=== PATIENT | female | born 1985 | race Caucasian/White ===

== ENCOUNTER → 2016-12-14 | Outpatient (CLI) | payer BC ==
[~2016-12-14] MED LIST: HYDR-4246 PO; IBUP-1547 PO; IOHEXOL 300 MG/ML 100ml INJECTION ONE; NORMAL SALINE 100 ML ONE; SALINE FLUSH 10ml SYRINGE ONE
--- NOTE | 2016-12-15 10:33 | DI ---
Indication: ITS.REASON: N28.9 PROCEDURE: CT ABD/PELVIS W/WO CONTRAST: Encounter: Initial Comparison: MRI abdomen dated November 23, 2016 Comparison: None Technique: Axial CT images were performed through the abdomen and pelvis after the administration of intravenous contrast. Coronal and sagittal two-dimensional reformats. Delayed postcontrast images were also performed through the abdomen and pelvis. Automated Exposure Control and Iterative Reconstruction dose reducing techniques were utilized. Contrast: Omnipaque 300 89 mL Findings: Calcified granuloma in the right lower lobe. The lung bases are otherwise clear. Noncontrast images show no evidence of renal or ureteral stone disease. Postcontrast images show multiple low-attenuation foci in the liver which were shown to represent benign hemangiomas on prior study. 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 The enhancing superior pole left renal mass seen on MRI is confirmed on today's study measuring 2.8 cm in maximal diameter on coronal image #30. No additional enhancing renal masses identified. No adenopathy identified. The spleen, pancreas and adrenal glands appear normal. Delayed postcontrast images show no new findings. There is symmetric excretion of contrast by both renal collecting systems. The ureters appear normal in course and caliber. The bladder appears normal. 3.8 cm probable cyst in the left ovary. Uterus is unremarkable. No free fluid. No evidence of a bowel obstruction. Bone windows show no obvious lytic or blastic lesions. Impression: 1. Enhancing 2.7 cm superior pole left renal mass which remains a renal cell carcinoma until proven otherwise. 2. Multiple hepatic lesions, three of which were shown to represent benign hemangiomas on the comparison MRI. 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 .
--- NOTE | 2016-12-15 10:34 | DI ---
Indication: ITS.REASON: N28.9 left renal mass on prior imaging studies. PROCEDURE: US RENAL: Encounter: Initial Comparison: MRI abdomen dated November 23, [address] abdomen/pelvis dated December 14, 2016 Technique: Grayscale and color Doppler sonographic imaging of both kidneys and bladder was performed. FINDINGS: Both kidneys are present with normal cortical thickness and echogenicity. The left superior pole renal mass seen on MRI and CT is not well visualized on this exam. It is faintly visible as a slightly more hypoechoic exophytic region at the superior aspect of the left kidney measuring approximately 2.5 cm in size. No masses seen on the right. No hydronephrosis. The right kidney measures 11.2 cm in length, and the left kidney measures 11.8 cm in length. Bladder appears normal with bilateral ureteral jets. Prevoid bladder volume of 427.3 mL. Postvoid residual volume of 17.5 mL. IMPRESSION: The superior pole left renal mass is better seen on CT and MRI and remains concerning for renal cell carcinoma. .
== END ==
LOC: IMA 06:33
PROVIDERS: ATTEND Urology
DX: N28.9 Disorder of kidney and ureter, unspecified (principal); K76.9 Liver disease, unspecified
CPT/HCPCS: 74178; 76770; J7050; Q9967

== ENCOUNTER 2018-02-28 06:00 | Inpatient (IN) ==
[2018-02-28] MEDS ORDERED: METHYLERGONOVINE 0.2 MG/ML INJECTION IM PRN (06:04)
[2018-02-28] MEDS ORDERED: LR 1,000 ML IV PRN (06:04)
[2018-02-28] MEDS ORDERED: CARBOPROST 250 MCG/ML INJECTION IM PRN (06:04)
[2018-02-28] MEDS ORDERED: D5LR 1,000 ML IV PRN ×2 (06:04→06:09)
[2018-02-28] MEDS ORDERED: LIDOCAINE 1% (10mg/ml) 2mL INJ PF SDV ID PRN (06:04)
[2018-02-28] MEDS ORDERED: ACETAMINOPHEN 500 MG TABLET PO PRN (06:04)
[2018-02-28] MEDS ORDERED: CALCIUM CARBONATE Chewable 500mg TABLET PO PRN (06:04)
[2018-02-28] MEDS ORDERED: MAG-AL + SIM ORAL LIQUID 30ml PO PRN (06:04)
--- OUTSIDE RECORDS SUMMARY | 2018-02-28 06:05 | External Medical Summary | Continuity of Care Document ---
:1985 Author Organization [facility] Address [address] [place], [place] [id number] Phone Care Team Providers Name Role Phone Kelsey Garcia PA-C Unavailable Unavailable Allergies, Adverse Reactions, Alerts Substance Reaction Severity Status FLUOXETINE HCL Suicidal Ideation Unknown Active Medications Medication Instructions Dosage Effective Dates Status Comments (start - stop) butalbital-acetam take 1 - 2 tablet Not Available - Active MAY BE CALLED inophen-caffeine by oral route TO THE PHARM 50 mg-325 mg-40 every 6 hours as or printed Rx mg tablet needed not to taken to exceed 6 tablets pharm. per 24hrs buspirone 5 mg take 1 tablet by - Active tablet oral route 2 times every day PRN lidocaine 2 % apply a tiny - Active mucosal jelly amount by Topical route 2 times every day as needed 28 mg take 1 tablet by Not Available - Active iron-800 mcg oral route every tablet day Problems Condition Effective Dates (start - stop) Clinical Status Supervision of other high risk - pregnancies, third trimester Polyhydramnios, third trimester, not - applicable or unsp Endo, nutritional and metab diseases - comp preg, third tri Personal history of comp of preg, - chldbrth and the puerp Supervision of other high risk - pregnancies, first trimester Encntr screen for infections w sexl - mode of transmiss Encounter for screening for oth - infec/parastc diseases Encounter for screening of - mother 11 weeks gestation of - Polyhydramnios, third trimester, not - applicable or unsp Other malformation of placenta, third - trimester 34 weeks gestation of - Malignant neoplasm of unsp kidney, except renal pelvis Hepatomegaly, not elsewhere classified Pap Smear Screening, Cervix - Encounter for surveillance of contraceptive pills Acute posthemorrhagic anemia Tubal preg w/out intrauterine preg Encntr for f/u exam aft trtmt for cond oth than malig neoplm Acute posthemorrhagic anemia Tubal preg w/out intrauterine preg Anemia, unspecified Tubal preg w/out intrauterine preg Anemia, unspecified - Tubal preg w/out intrauterine preg - Tubal preg w/out intrauterine preg Tubal preg w/out intrauterine preg - Tubal preg w/out intrauterine preg Supervision of other high risk - pregnancies, first trimester Less than 8 weeks gestation of - Personal history of comp of preg, - chldbrth and the puerp Supervision of other high risk - pregnancies, second trimester Other malformation of placenta, second - trimester 27 weeks gestation of - Supervision of other high risk - pregnancies, second trimester 23 weeks gestation of - Supervision of other high risk - pregnancies, third trimester Polyhydramnios, third trimester, not - applicable or unsp Other malformation of placenta, third - trimester 34 weeks gestation of - Supervision of other high risk - pregnancies, third trimester Matern care for oth or susp poor fetl - grth, third tri, unsp Other malformation of placenta, third - trimester 30 weeks gestation of - Supervision of other high risk - pregnancies, third trimester Polyhydramnios, third trimester, not - applicable or unsp Other malformation of placenta, third - trimester 33 weeks gestation of - Matern care for oth or susp poor fetl - grth, 2nd tri, unsp 15 weeks gestation of - Matern care for oth or susp poor fetl - grth, 2nd tri, unsp 19 weeks gestation of - Polyhydramnios, third trimester, not - applicable or unsp 33 weeks gestation of - Polyhydramnios, third trimester, not - applicable or unsp Other malformation of placenta, third - trimester 31 weeks gestation of - Polyhydramnios, third trimester, not - applicable or unsp Endo, nutritional and metab diseases - comp preg, third tri 30 weeks gestation of - Polyhydramnios, third trimester, not - applicable or unsp 32 weeks gestation of - Polyhydramnios, third trimester, not - applicable or unsp Other malformation of placenta, third - trimester Endo, nutritional and metab diseases - comp preg, third tri 32 weeks gestation of - Other malformation of placenta, second - trimester Endo, nutritional and metab diseases - comp preg, second tri 19 weeks gestation of - Other malformation of placenta, second - trimester Endo, nutritional and metab diseases - comp preg, second tri 23 weeks gestation of - Less than 8 weeks gestation of - Personal history of comp of preg, - chldbrth and the puerp Depression Active Procedures Procedure Date OB Visit No Charge Results Test Name Date and Time Measure Units Reference Range Abnormal Flag Comments Unknown Advance Directives Directive Yes / No Effective Date File Name Unknown Encounters Encounter Practice Location Reason(s) Diagnoses Date Provider Care Team Description For Visit Members [facility] Polyhydramnios, January- Wynn Referring In Womens third trimester, 3-201 Roxie. Provider: Health PA, not applicable or 8 [address] unspOther Medical [place], 200 1522, malformation of Center [facility], placenta, third [place], [id number] weeks 120, , [place], [id number], [place], [address]. [place], tel: tel:[phone] , [place]. tel: [phone] Jason [place] Supervision of May-0 Wynn Referring In Womens Ultrasound other high risk 3-201 Roxie. Provider: Health PA, pregnancies, 8 700 Rajwinder PO Box third Medical [place], [address] 15[address], trimesterPolyhydr [facility], amnios, third [place], trimester, not 120, , [place], [id number], applicable or [place], [address]. [place]Other [place], tel: tel:+[phone] malformation of [phone] placenta, third , [place]. [id number] weeks tel: gestation of [phone] [facility] Apr-2 Wynn In Womens 7-201 Roxie. Health PA, 8 700 PO [address] Medical [address], [facility], , [place], 120, [id number], [place], tel:+ [phone] , [place]. tel: [phone] Jason [place] Polyhydramnios, Apr-2 Wynn Referring In Womens third trimester, 6- Roxie. Provider: Health PA, not applicable or 8 700 Rajwinder PO Box unsp33 weeks Medical [place], 200 1522, gestation of [facility], [place], 120, , [place], [id number], [place], [address]. [place], tel: tel:[phone] , [place]. tel: [phone] Jason [place] Supervision of Apr-2 Wynn Referring In Womens Ultrasound other high risk 6- Roxie. Provider: Health PA, pregnancies, 8 700 Rajwinder PO Box third Medical [place], 200 1522, trimesterPolyhydr [facility] , [employer] [place], amnios, third [place], trimester, not 120, , [place], [id number], applicable or [place], [address]. [place]spOther [place], tel: tel: malformation of [phone] placenta, third , [place]. [id number] weeks tel: gestation of [phone] [facility] Polyhydramnios, Apr- Wynn Referring In Womens third trimester, Roxie. Provider: Health PA, not applicable or 8 700 Rajwinder PO Box unsp32 weeks Medical [place], 200 1522, gestation of [facility], [employer], [place], 120, , [place], , [place], [address]. [place], tel: tel: [phone] , [place]. tel: [phone] [facility] Polyhydramnios, Apr- Wynn Referring In Womens Ultrasound third trimester, Roxie. Provider: Health PA, not applicable or 8 700 Rajwinder PO Box unspOther Medical [place], 200 1522, malformation of [facility], [employer] [place], placenta, third [place], trimesterEndo, 120, , [place], [id number], nutritional and [place], [address]. [place] metab diseases [place], tel: tel:[phone] comp preg, third [phone] [id number] tri32 weeks , [place]. gestation of tel: [phone] [facility] Supervision of Sobbing Referring In Womens other high risk - Flash. Provider: Health PA, pregnancies, 8 700 Rajwinder PO Box third Medical [place], 200 1522, trimesterPolyhydr [facility], [employer] [place], amnios, third Singh Sheth, trimester, not Suite , [place], [id number], applicable or 120, [address]. [place] carmenpEnJacobo roche, tel: tel:[phone] nutritional and [place], [phone] metab diseases [address], comp preg, third [place]. triPersonal tel: history of comp [phone] of preg, chldbrth and the puerp [facility] Polyhydramnios, Apr-1 Wynn Referring In Womens Ultrasound third trimester, - Roxie. Provider: Health PA, not applicable or 8 700 Rajwinder PO Box unspOther Medical [place], 200 1522, malformation of Center [facility], placenta, third [place], [id number] weeks 120, , [place], [id number], gestation [place], [address]. [place], tel: tel: [phone] , [place]. tel: [phone] [facility] Polyhydramnios, Apr-0 Wynn Referring In Womens third trimester, - Roxie. Provider: Health PA, not applicable or 8 700 Rajwinder PO Box unspEndo, Medical [place], 200 1522, nutritional and [facility], metab diseases [place], comp preg, third 120, , [place], [id number], tri30 weeks [place], [address]. [place] gestation of [place], tel: tel:[phone] , [place]. tel: [phone] [facility] Supervision of Dec-0 Wynn Referring In Womens Ultrasound other high risk - Roxie. Provider: Health PA, pregnancies, 8 700 Rajwinder PO Box third Medical [place], 200 1522, trimesterMatern Center [facility], care for oth or [place], susp poor fetl 120, , [place], [id number], grth, third tri, [place], [address]. [place]spOther [place], tel: tel:[phone] malformation of [phone] placenta, third , [place]. [id number] weeks tel: gestation of [phone] [facility] Supervision of Nov- Wynn Referring In Womens other high risk - Roxie. Provider: Health JACK, pregnancies, 8 700 Rajwinder PO Box second [facility] [place], 200 1522, trimesterOther [facility], malformation of [place], placenta, second 120, , [place], [id number], weeks [place], [address]. [place] gestation of [place], tel: tel:[phone] , [place]. tel: [phone] Jason [place] Supervision of Oct- Wynn Referring In Womens other high risk 5-201 Roxie. Provider: Health JACK, pregnancies, 8 700 Rajwinder PO Box second Medical [place], 200 1522, [id number] weeks Center [facility], gestation of [place], 120, , [place], [id number], [place], [address]. [place], tel: tel: [phone] , [place]. tel: [phone] Jason [place] Other Wynn Referring In Womens Ultrasound malformation of 5- Roxie. Provider: Health JACK, placenta, second 8 700 Rajwinder PO Box trimesterEndo, Medical [place], 200 1522, nutritional and [facility], metab diseases [place], comp preg, second 120, , [place], [id number], tri23 weeks [place], [address]. [place] gestation of [place], tel: tel:[phone] , [place]. tel: [phone] Jason [place] Sep- Wynn In Womens 1-201 Roxie. Health JACK, 8 700 PO Box Medical [address], [facility], [place], 120, [id number], [place], tel: [phone] , [place]. tel: [phone] Jason [place] Other Wynn Referring In Womens malformation of 8-201 Roxie. Provider: Health JACK, placenta, second 8 700 Rajwinder PO Box trimesterEndo, Medical [place], 200 1522, nutritional and [facility], metab diseases [place], comp preg, second 120, , [place], [id number], tri19 weeks [place], [address]. [place] gestation of [place], tel:[phone] tel:+ [phone] , [place]. tel: [phone] Jason [place] Matern care for Wynn Referring In Womens Ultrasound oth or susp poor - Roxie. Provider: Bon SANTIAGO, [facility], 2nd 8 700 Rajwinder PO Box tri, unsp19 weeks Medical [place], 200 1522, gestation of [facility], [place], 120, , [place], [id number], [place], [address]. [place], tel: tel:[phone] , [place]. tel: [phone] Jason [place] Matern care for Wynn Referring In Womens oth or susp poor - Roxie. Provider: Bon SANTIAGO, [facility], 2nd 7 700 Rajwinder PO Box tri, unsp15 weeks Medical [place], 200 1522, gestation of [facility], [place], 120, , [place], [id number], [place], [address]. [place], tel: tel: [phone] , [place]. tel: [phone] Jason [place] Supervision of Wynn Referring In Womens other high risk - Roxie. Provider: Bon SANTIAGO, pregnancies, 7 700 Rajwinder PO Box [facility], 200 1522, trimesterEncntr Center [facility], screen for [place], infections w sexl 120, , [place], [id number], mode of [place], [address]. [place] transmissEncounte [place], tel: tel:[phone] r for screening [phone] for ot , [place]. infec/parastc tel: diseasesEncounter [phone] for screening of [id number] weeks gestation of [facility] Less than 8 weeks Jun- Wynn Referring In Womens gestation of - Roxie. Provider: Bon SANTIAGO, pregnancyPersonal 7 700 Rajwinder PO Box history of comp Medical [place], 200 1522, of preg, chldbrth [facility], and the puerp [place], 120, , [place], , [place], [address]. [place], tel: tel: [phone] , [place]. tel: [phone] [facility] Supervision of Wynn Referring In Womens other high risk 3- Roxie. Provider: Health PA, pregnancies, 7 700 Rajwinder PO Box first Medical [place], 200 1522, trimesterLess [facility], than 8 weeks [place], gestation of 120, , [place], , pregnancyPersonal [place], [address]. [place] history of comp [place], tel: tel: of preg, chldbrth [phone] and the puerp , [place]. tel: [phone] [facility] Malignant Roger- Wynn Referring In Womens neoplasm of unsp 6 Roxie. Provider: Health PA, kidney, except 7 700 Rajwinder PO Box renal Medical [place], 200 1522, pelvisHepatomegal [facility], y, not elsewhere [place], classifiedPap 120, , [place], , Smear Screening, [place], [address]. [place] CervixEncounter [place], tel: tel: for surveillance [phone] of contraceptive , [place]. pills tel: [phone] [facility] Anemia, Mar-0 Wynn Referring In Womens unspecifiedTubal Roxie. Provider: Health PA, preg w/out 7 700 Rajwinder PO Box intrauterine preg Medical [place], 200 1522, [facility], [place], 120, , [place], , [place], [address]. [place], tel: tel: [phone] , [place]. tel: [phone] [facility] Anemia, Mar-0 Wynn In Womens unspecifiedTubal 7-201 Roxie. Health JACK, preg w/out 7 700 PO Box intrauterine preg Medical [address], [address], [facility] [place], 120, [id number], [place], [place], tel:+ [phone] , [place]. tel: [phone] [facility] Tubal preg w/out Feb-2 Wynn Referring In Womens intrauterine 4-201 Roxie. Provider: Health JACK, pregTubal preg 7 700 Rajwinder PO Box w/out Medical [place], 200 1522, intrauterine preg Center [facility] Dr Rajesh, [place], 120, , [place], , [place], [address]. [place], tel: tel: [phone] , [place]. tel: [phone] Jason [place] Tubal preg w/out Feb-1 Wynn In Womens intrauterine preg 9-201 Roxie. Bon SANTIAGO, 7 700 [address] Medical [address], [address], [place], 120, , [place], [place], tel:[phone] , [place]. tel: [phone] [facility] Acute Feb-1 Wynn Referring In Womens posthemorrhagic 7-201 Roxie. Provider: Bon SANTIAGO, anemiaTubal preg 7 700 Rajwinder PO Box w/out Medical [place], 200 1522, intrauterine [facility], pregEncntr for [place], f/u exam aft 120, , [place], , trtmt for cond [place], [address]. [facility] [place], tel: tel: [phone] , [place]. tel: [phone] [facility] Acute Feb-1 Wynn Referring In Womens posthemorrhagic 0-201 Roxie. Provider: Bon SANTIAGO, anemiaTubal preg 7 700 Roxie W[place] PO Box w/out Medical [place], 700 1522, intrauterine preg Center [address], [facility] Dr [place], 120, [place], [id number], Jacobo [facility], [place], tel: [phone]. , . tel: tel: [phone] Jason [place] Sep- Esperanza In Womens 0-201 Yue. [facility], 5 700 PO [facility] [address], [place] [address] Rajesh, [facility] [place], 120, [id number], [facility], tel: [phone] , . tel: [phone] Family History Family Member Diagnosis Age At Onset No family history of Thyroid Disorder No family history of Ovarian Cancer No family history of Pulmonary Embolism No family history of Stroke No family history of Uterine Cancer No family history of Colon Cancer No family history of Hypertension No family history of Diabetes No family history of Cardiovascular Disease No family history of Venous Thrombosis No family history of Breast Cancer Immunizations Vaccine Date Status Comments Tdap completed Source: New Immunization Record Influenza, injectable, completed Source: Other Provider quadrivalent, preservative free, 3 yrs or older Payers Payer name Insurance type Covered alliance party ID Authorization(s) [facility] [id number] [facility] [id number] Social History Type Description Quantity Date Captured Alcohol Use Details No Caffeine Use Details Unknown Tobacco Use Status Unknown Smoking Status Never smoker Vital Signs Date / Height Weight BMI Pulse Blood Temperature Respiratory Body Head BMI Time: Rate Pressure Rate Surface Circumference percentile Area 169.10 29.0 115/2018 lbs 2 mm[Hg] 3:42 kg/m PM eter (2) Chief Complaint And Reason For Visit Unknown Chief Complaint And Reason For Visit Reason For Referral Reason For Referral Unknown Plan Of Care Date Type Action Status Appointment ChynaShantelle de la o BOOKED Appointment ChynaShantelle BOOKED Appointment ChynaShantelle de la o BOOKED Appointment Chyna, Shantelle BOOKED Appointment ChynaShantelle BOOKED Appointment ChynaShantelle BOOKED Appointment ChynaShantelle de la o BOOKED Appointment Shantelle Clemente BOOKED Appointment Shantelle Clemente BOOKED Appointment Shantelle Clemente BOOKED Future Order: Radiology Order Ultrasound OB Follow-up ([id number]) Ordered Future Order: Radiology Order Biophysical Profile without NST Ordered ([id number]) Future Order: Radiology Order Ultrasound OB Follow-up ([id number]) Ordered Future Order: Radiology Order Biophysical Profile without NST Ordered ([id number]) Future Order: Radiology Order Complete OB Ultrasound > 14 Ordered Weeks ([id number]) Future Order: Radiology Order Biophysical Profile without NST Ordered ([id number]) Future Order: Radiology Order Biophysical Profile without NST Ordered ([id number]) Future Order: Radiology Order Ultrasound OB Follow-up ([id number]) Ordered Date Type Problem Goal Intervention Status Start Date Unknown. History Of Present Illness Encounter Date Complaint History Of Present Illness This patient has no known history of present illness Functional Status Encounter Date Functional Assessment Cognitive Assessment Unknown Medications Administered Medication Instructions Dosage Effective Dates (start - stop) Status Comments Drug Treatment Unknown Instructions Date Instruction Additional Information gestational glucose lab screening HIV and other routine tests risk factors identified by history anticipated course of care nutrition and weight gain counseling, special diet toxoplasmosis precautions (cats / raw meat) sexual activity exercise indications for ultrasound influenza vaccine environmental / work hazards travel use of any medications (including supplements, vitamins, herbs, OTC drugs) domestic violence seat belt use childbirth classes / hospital facilities hospital registration genetic testing new ob handbook
--- OUTSIDE RECORDS SUMMARY | 2018-02-28 06:05 | External Medical Summary | Continuity of Care Document ---
:1985 Author Organization [facility] [employer] [facility] Address [address] [place], [place] [id number] Phone Care Team Providers Name Role Phone Kelsey Garcia PA-C Unavailable Unavailable Allergies, Adverse Reactions, Alerts Substance Reaction Severity Status FLUOXETINE HCL Suicidal Ideation Unknown Active Medications Medication Instructions Dosage Effective Status Comments Dates (start - stop) Zofran ODT [address] 1 Tablet by Not Available - Active disintegrating Oral route every tablet [address] tablet on top of tongue until dissolved. butalbital-acetamino take 1 - 2 tablet Not Available - Active MAY BE CALLED phen-caffeine 50 by oral route TO THE PHARM mg-325 mg-40 mg every 6 hours as or printed Rx tablet needed not to taken to exceed 6 tablets pharm. per 24hrs buspirone 5 mg take 1 tablet by - Active tablet oral route 2 times every day PRN lidocaine 2 % apply a tiny - Active mucosal jelly amount by Topical route 2 times every day as needed 28 mg take 1 tablet by Not Available - Active iron-800 mcg tablet oral route every day ranitidine 75 mg take 1 tablet by 75 MG - Active tablet oral route 2 times every day with glass of water Problems Condition Effective Dates (start - stop) Clinical Status Polyhydramnios, third trimester, not - applicable or unsp 33 weeks gestation of - Supervision of other [...] - trimester 33 weeks gestation of - Supervision of other high risk - pregnancies, third trimester Polyhydramnios, third trimester, not - applicable or unsp Other malformation of placenta, 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 Provider: Health JACK, not applicable or 8 [address] unspEncounter For Medical [place], 200 1522, [facility], Screening For [place], Streptococcus B35 120, , [place], , weeks gestation Jacobo [address]. [place], tel: tel:[phone] , [place]. tel: [phone] Jason [place] Supervision of Wynn Referring In Womens Ultrasound other high risk 0-201 Roxie. Provider: Bon SANTIAGO, pregnancies, 8 700 [address] third Medical [place], 200 1522, trimesterPolyhydr [facility], amnios, third [place], trimester, not 120, , [place], , applicable or [place], [address]. [place] unspOther [place], tel: tel:[phone] malformation of [phone] placenta, third , [place]. [email or web address] weeks tel: gestation of [phone] [facility] January-0 Wynn In Womens 7-201 Roxie. Health JACK, 8 700 [address] Medical [address], [facility], [place], 120, [id number], [place], tel: [phone] , [place]. tel: [phone] Jason [place] Polyhydramnios, May-0 Wynn Referring In Womens third trimester, 3-201 Roxie. Provider: Health PA, not applicable or 8 700 Rajwinder PO Box unspOther Medical [place], 200 1522, malformation of [facility], placenta, third [place], weeks 120, , [place], [id number], gestation of [place], [address]. [place], tel: tel:[phone] , [place]. tel: [phone] Jason [place] Supervision of May-0 Wynn Referring In Womens Ultrasound other high risk 3- Roxie. Provider: Health PA, pregnancies, 8 700 [address]winder PO [address] third Medical [place], 200 1522, trimesterPolyhydr [facility], amnios, third [place], trimester, not 120, , [place], [id number], applicable or [place], [address]. [place] unspOther [place], tel: tel:[phone] malformation of [phone] placenta, third , [place]. [email or web address] weeks tel:+10-30 gestation of [phone] [facility] Apr-2 Wynn In Womens 7- Roxie. Health PA, 8 700 [address] Medical [address], [facility], , [place], 120, [id number], [place], tel:+ [phone] , [place]. tel: [phone] Jason [place] Polyhydramnios, Apr-2 Wynn Referring In Womens third trimester, 6- Roxie. Provider: Health PA, not applicable or 8 700 Rajwinder PO Box unsp33 weeks Medical [place], 200 1522, gestation of [facility], [place], 120, , [place], [id number], [place], [address]. [place], tel: tel:[phone] , [place]. tel: [phone] Jason [place] Supervision of Apr-2 Wynn Referring In Womens Ultrasound other high risk 6- Roxie. Provider: Health PA, pregnancies, 8 700 Rajwinder [address] third Medical [place], 200 1522, trimesterPolyhydr [facility], amnios, third [place], trimester, not 120, , [place], [id number], applicable or [place], [address]. [place] unspOther [place], tel: tel: malformation of [phone] placenta, third , [place]. [id number] weeks tel: gestation of [phone] [facility] Polyhydramnios, Apr- Wynn Referring In Womens third trimester, 9 Roxie. Provider: Health PA, not applicable or 8 700 Rajwinder PO Box unsp32 weeks Medical [place], 200 1522, gestation of [facility], [place], 120, , [place], [id number], [place], [address]. [place], tel: tel: [phone] , [place]. tel: [phone] [facility] Polyhydramnios, Apr- Wynn Referring In Womens Ultrasound third trimester, Roxie. Provider: Health PA, not applicable or 8 700 Rajwinder PO [facility] [place], 200 1522, malformation of [facility], placenta, third [place], trimesterEndo, 120, , [place], [id number], nutritional and [place], [address]. [place] metab diseases [place], tel: tel:[phone] comp preg, third [phone] [id number] tri32 weeks , [place]. gestation of tel: [phone] [facility] Supervision of Sobbing Referring In Womens other high risk - Flash. Provider: Health PA, pregnancies, 8 700 Rajwinder PO Box third Medical [place], 200 1522, trimesterPolyhydr [facility], amnios, third Singh Sheth, trimester, not Suite , [place], [id number], applicable or 120, [address]. [place] carmenpEndoJacobo, tel: tel:[phone] nutritional and [place], [id number] [id number] metab diseases [address], comp preg, third [place]. triPersonal tel: history of comp [phone] of preg, chldbrth and the puerp [facility] Polyhydramnios, Apr-1 Wynn Referring In Womens Ultrasound third trimester, 2-201 Roxie. Provider: Health PA, not applicable or 8 700 Rajwinder PO Box unspOther [facility], 200 1522, malformation of [facility], placenta, third [place], [email or web address] weeks 120, , [place], [id number], gestation of [place], [address]. [place], tel: tel: [phone] , [place]. tel: [phone] [facility] Polyhydramnios, Apr-0 Wynn Referring In Womens third trimester, 5- Roxie. Provider: Health PA, not applicable or 8 700 Rajwinder [facility] 200 1522, nutritional and [facility], metab diseases [place], comp preg, third 120, , [place], [id number], tri30 weeks [place], [address]. [place] gestation of [place], tel: tel: [phone] , [place]. tel: [phone] [facility] Supervision of Apr-0 Wynn Referring In Womens Ultrasound other high risk - Roxie. Provider: Health PA, pregnancies, 8 700 Rajwinder PO Box [facility] [place], 200 1522, trimesterMatern [facility], care for oth or [place], susp poor fetl 120, , [place], [id number], grth, third tri, [place], [address]. [place] unspOther [place], tel: tel:[phone] malformation of [phone] placenta, third , [place]. [email or web address] weeks tel:+10-30 gestation of [phone] [facility] Supervision of Mar-1 Wynn Referring In Womens other high risk 5-201 Roxie. Provider: Health PA, pregnancies, 8 700 Rajwinder PO Box second Medical [place], 200 1522, trimesterOther [facility], malformation of [place], placenta, second 120, , [place], [id number], [email or web address] weeks [place], [address]. [place] gestation of [place], tel: tel:[phone] , [place]. tel: [phone] aJson [place] Supervision of Oct- Wynn Referring In Womens other high risk 5- Roxie. Provider: Health PA, pregnancies, 8 700 Rajwinder PO Box second Medical [place], 200 1522, [email or web address] weeks [facility], gestation of [place], 120, , [place], [id number], [place], [address]. [place], tel: tel: [phone] , [place]. tel: [phone] Jason [place] Other Wynn Referring In Womens Ultrasound malformation of 5- Roxie. Provider: Health PA, placenta, second 8 700 Rajwinder PO Box trimesterEndo, Medical [place], 200 1522, nutritional and [facility], metab diseases [place], comp preg, second 120, , [place], [id number], tri23 weeks [place], [address]. [place] gestation of [place], tel: tel:[phone] , [place]. tel: [phone] Jason [place] Sep- Wynn In Womens -201 Roxie. Health PA, 8 700 PO [address] Medical [address], [place] Rajesh, [place], 120, [id number], [place], tel: [phone] , [place]. tel: [phone] Jason [place] Other Wynn Referring In Womens malformation of 8-201 Roxie. Provider: Health PA, placenta, second 8 700 Rajwinder PO Box trimesterEndo, Medical [place], 200 1522, nutritional and [facility], metab diseases [place], comp preg, second 120, , [place], [id number], tri19 weeks [place], [address]. [place] gestation of [place], tel: tel: [phone] , [place]. tel: [phone] [facility] Matern care for Wynn Referring In Womens Ultrasound oth or susp poor 8-201 Roxie. Provider: Health JACK, [facility], 2nd 8 700 Rajwinder PO Box tri, unsp19 weeks [facility] [place], 200 1522, gestation of [facility], [place], 120, , [place], [id number], [place], [address]. [place], tel: tel: [phone] , [place]. tel: [phone] Jason [place] Matern care for Wynn Referring In Womens oth or susp poor - Roxie. Provider: Bon SANTIAGO, [facility], 2nd 7 700 Rajwinder PO Box tri, unsp15 weeks Medical [place], 200 1522, gestation of [facility], [place], 120, , [place], [id number], [place], [address]. [place], tel: tel: [phone] , [place]. tel: [phone] Jason [place] Supervision of Wynn Referring In Womens other high risk - Roxie. Provider: Health JACK, pregnancies, 7 700 Rajwinder PO Box first [facility] [place], 200 1522, trimesterEncntr [facility], screen for [place], infections w sexl 120, , [place], [id number], mode of [place], [address]. [place] transmissEncounte [place], tel: tel: r for screening [phone] for ot , [place]. infec/parastc tel: diseasesEncounter [phone] for screening of [id number] weeks gestation of [facility] Less than 8 weeks Jun- Wynn Referring In Womens gestation of 7-201 Roxie. Provider: Health JACK, pregnancyPersonal 7 700 Rajwinder PO Box history of comp Medical [place], 200 1522, of preg, chldbrth [facility], and the puerp [place], 120, , [place], , [place], [address]. [place], tel: tel: [phone] , [place]. tel: [phone] [facility] Supervision of Wynn Referring In Womens other high risk Roxie. Provider: Health JACK, pregnancies, 7 700 Rajwinder PO Box first Medical [place], 200 1522, trimesterLess [facility], than 8 weeks [place], gestation of 120, , [place], , pregnancyPersonal [place], [address]. [place] history of comp [place], tel: tel: of preg, chldbrth [phone] and the puerp , [place]. 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 Provider: Health JACK, kidney, except 7 700 Rajwinder PO Box renal Medical [place], 200 1522, pelvisHepatomegal [facility], y, not elsewhere [place], classifiedPap 120, , [place], , Smear Screening, [place], [address]. [place] CervixEncounter [place], tel: tel: for surveillance [phone] of contraceptive , [place]. pills tel: [phone] [facility] Anemia, Mar-0 Wynn Referring In Womens unspecifiedTubal Roxie. Provider: Health JACK, preg w/out 7 700 Rajwinder PO Box intrauterine preg Medical [place], 200 1522, [facility], [place], 120, , [place], , [place], [address]. [place], tel: tel: [phone] , [place]. tel: [phone] [facility] Anemia, Mar-0 Wynn In Womens unspecifiedTubal 7-201 Roxie. Health JACK, preg w/out 7 700 PO Box intrauterine preg Medical 15[address], [place] [address] Rajesh, [place], 120, [id number], [place], [place], tel: [phone] , [place]. tel: [phone] [facility] Tubal preg w/out Feb-2 Wynn Referring In Womens intrauterine 4-201 Roxie. Provider: Bon SANTIAGO, pregTubal preg 7 700 Rajwinder PO Box w/out Medical [place], 200 1522, intrauterine preg [facility] Dr Rajesh, [place]W, 120, , [place], , [place], [address]. [place], tel: tel: [phone] , [place]. tel: [phone] Jason [place] Tubal preg w/out Feb-1 Wynn In Womens intrauterine preg 9-201 Roxie. Bon SANTIAGO, 7 700 [address] Medical [address], [address], [place], 120, , [place], [place], tel: [phone] , [place]. tel: [phone] [facility] Acute Feb-1 Wynn Referring In Womens posthemorrhagic 7-201 Roxie. Provider: Bon SANTIAGO, anemiaTubal preg 7 700 Rajwinder PO Box w/out Medical [place], 200 1522, intrauterine [facility], pregEncntr for [place], f/u exam aft 120, , [place], , trtmt for cond Jacob[place], [address]. ot than [place] center [place], tel: tel: [phone] , [place]. tel: [phone] [facility] Acute Feb-1 Wynn Referring In Womens posthemorrhagic 0-201 Roxie. Provider: Bon SANTIAGO, anemiaTubal preg 7 700 Roxie Wynn PO Box w/out Medical K, 700 1522, intrauterine preg [place] [address], [facility] [place], 120, [place] 120, [id number], [place], [place], [place], tel: [phone]. , . tel: tel: [phone] [facility] Sly- Esperanza In Womens 0-201 Yue. [facility], 5 700 PO Box [facility], [place] [address] Rajesh, [facility] [place], 120, [id number], [place], [place], tel: [phone] , [place]. tel: [phone] Family History Family Member Diagnosis Age At [...] older Payers Payer name Insurance type Covered democrat ID Authorization(s) [facility] [id number] [facility] [id number] Social History Type Description Quantity Date Captured Alcohol Use Details No Caffeine Use Details Unknown Tobacco Use Status Unknown Smoking Status Never smoker Vital Signs Date / Height Weight BMI Pulse Blood Temperature Respiratory Body Head BMI Time: Rate Pressure Rate Surface Circumference percentile Area 29 2 10:29 kg/m AM eter (2) 172.10 29.5 110/71 -2018 lbs 4 mm[Hg] 10:47 kg/m AM eter (2) Chief Complaint And Reason For Visit Unknown Chief Complaint And Reason For Visit Reason For Referral Reason For Referral Unknown Plan Of Care Date Type Action Status Shantelle Cho BOOKED Appointment Shantelle Clemente BOOKED Appointment Shantelle Clemente BOOKED Ana Choan BOOKED Appointment Shantelle Clemente BOOKED Appointment Shantelle Clemente BOOKED Appointment Shantelle Clemente BOOKED Future Order: Radiology Order Ultrasound OB Follow-up ([id number]) Ordered Future Order: Radiology Order Biophysical Profile without NST Ordered ([id number]) Future Order: Radiology Order Ultrasound OB Follow-up ([id number]) Ordered Future Order: Radiology Order Biophysical Profile without NST Ordered ([id number]) Future Order: Radiology Order Biophysical Profile without NST Ordered ([id number]) Future Order: Radiology Order Complete OB Ultrasound > 14 Ordered Weeks ([id number]) Future Order: Radiology Order Biophysical Profile without NST Ordered ([id number]) Future Order: Radiology Order Biophysical Profile without NST Ordered ([id number]) Future Order: Radiology Order Ultrasound OB Follow-up ([id number]) Ordered Date Type Problem Goal Intervention Status Start Date Unknown. History Of Present Illness Encounter Date Complaint History Of Present Illness This patient has no known history of present illness Functional Status Encounter Date Functional Assessment Cognitive Assessment Unknown Medications Administered Medication Instructions Dosage Effective Dates (start - stop) Status Comments Drug Treatment Unknown Instructions Date Instruction Additional Information labor signs group B strep screening gestational glucose lab screening HIV and other [...]
--- OUTSIDE RECORDS SUMMARY | 2018-02-28 06:05 | External Medical Summary | Continuity of Care Document ---
:1985 Author Organization [facility] Address [address] [place], [place] [id number] Phone Care Team Providers Name Role Phone Kelsey Garcia PA-C Unavailable Unavailable Allergies, Adverse Reactions, Alerts Substance Reaction Severity Status FLUOXETINE HCL Suicidal Ideation Unknown Active Medications Medication Instructions Dosage Effective Dates Status Comments (start - stop) lidocaine 2 % apply a tiny amount - Active mucosal jelly by Topical route 2 times every day [...] - mother 11 weeks gestation of - Malignant neoplasm of [...] Personal history of comp of preg, - chldbrt and the puer Supervision of other high risk - pregnancies, [...] Personal history of comp of preg, - chldbrt and the puer Supervision of other high risk - pregnancies, [...] the puerp Depression Active Procedures Procedure Date Unknown Results Test Name Date and Time Measure Units Reference Range Abnormal Flag Comments Unknown Advance Directives Directive Yes / No Effective Date File Name Unknown Encounters Encounter Practice Location Reason(s) Diagnoses Date Provider Care Team Description For Visit Members Jason [place] Polyhydramnios, Apr-2 Wynn Referring In Womens third trimester, Roxie. Provider: Health PA, not applicable or 8 [address] unsp33 weeks Medical [place], 200 1522, gestation of [facility], [place], 120, , [place], [id number], [place], [address]. [place], tel: tel:[phone] , [place]. tel: [phone] Jason [place] Supervision of Dec-2 Wynn Referring In Womens Ultrasound other high risk Roxie. Provider: Health PA, pregnancies, 8 700 Rajwinder [address] third Medical [place], 200 1522, trimesterPolyhydr [place] [facility], amnios, third [place], trimester, not 120, , [place], [id number], applicable or [place], [address]. 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 [id number] weeks tel: gestation of [phone] [facility] Polyhydramnios, Apr- Wynn Referring In Womens third trimester, Roxie. Provider: Health PA, not applicable or 8 700 Rajwinder [address] unsp32 weeks Medical [place], 200 1522, gestation of [facility], Dr, [place] ANDREW, 120, , [place], [id number], [place], [address]. [place], tel: tel:[phone] , [place]. tel: [phone] [facility] Polyhydramnios, Dec- Wynn Referring In Womens Ultrasound third trimester, Roxie. Provider: Bon SANTIAGO, not applicable or 8 700 [address] [facility], malformation of [facility], placenta, third DrLobito, trimesterEndo, 120, , [place], [id number], nutritional and [place], [address]. [place] metab diseases [place], tel: tel:[phone] comp preg, third [phone] [phone] tri32 weeks , [place]. gestation of tel: [phone] [facility] Supervision of [place] Referring In Womens other high risk Flash. Provider: Health JACK, pregnancies, 8 700 Rajwinder PO Box third [facility], 200 1522, trimesterPolyhydr [facility], amnios, third Drive, [place], trimester, not Suite , [place], [id number], applicable or 120, [address]. [place] unsJacobo King, tel: tel:[phone] nutritional and [place], [phone] metab diseases [address], comp preg, third [place]. triPersonal tel: history of comp [phone] of preg, chldbrth and the puerp [facility] Polyhydramnios, Dec- Wynn Referring In Womens Ultrasound third trimester, 2-201 Roxie. Provider: Health PA, not applicable or 8 700 Rajwinder PO Box unspOther [facility], 200 1522, malformation of [facility], placenta, third [place], weeks 120, , [place], [id number], gestation of [place], [address]. [place], tel: tel:+ [phone] , [place]. tel: [phone] [facility] Apr-0 Wynn In Womens 5-201 Roxie. Health PA, 8 700 PO Box Medical 1522, [facility], , [place], 120, [id number], [place], [place], tel: [phone] , [place]. tel: [phone] [facility] Polyhydramnios, Apr-0 Wynn Referring In Womens third trimester, -201 Roxie. Provider: Health PA, not applicable or 8 700 Rajwinder [facility], 200 15[facility], nutritional and [facility], metab diseases [place], comp preg, third 120, , [place], , tri30 weeks [place], [address]. [place] gestation of [place], tel: tel: [phone] , [place]. tel: [phone] [facility] Supervision of Apr-0 Wynn Referring In Womens Ultrasound other high risk 5-201 Roxie. Provider: Health PA, pregnancies, 8 700 Rajwinder PO Box [facility], 200 1522, trimesterMatern [facility], care for oth or [place], susp poor fetl 120, , [place], [id number], grth, third tri, [place], [address]. [place] unspOther [place], tel: tel:+[phone] malformation of [phone] placenta, third , [place]. [id number] weeks tel:+10-30 gestation of [phone] [facility] Supervision of Mar-1 Wynn Referring In Womens other high risk 5-201 Roxie. Provider: Health PA, pregnancies, 8 700 Rajwinder PO Box second Medical [place], 200 1522, trimesterOther Center [facility], malformation of [place], placenta, second 120, , [place], [id number], [id number] weeks [place], [address]. [place] gestation of [place], tel: tel:[phone] , [place]. tel: [phone] Jason [place] Supervision of Oct- Wynn Referring In Womens other high risk 5-201 Roxie. Provider: Health PA, pregnancies, 8 700 Rajwinder PO Box second Medical [place], 200 1522, [id number] weeks Center [facility], gestation of [place], 120, , [place], [id number], [place], [address]. [place], tel: tel: [phone] , [place]. tel: [phone] Jason [place] Other Wynn Referring In Womens Ultrasound malformation of 5- Roxie. Provider: Health JACK, placenta, second 8 700 Rajwinder PO Box trimesterEndo, Medical [place], 200 1522, nutritional and [facility], metab diseases [place], comp preg, second 120, , [place], [id number], tri23 weeks [place], [address]. [place] gestation of [place], tel: tel:[phone] , [place]. tel: [phone] Jason [place] Sep- Wynn In Womens 1-201 Roxie. Health PA, 8 700 PO Box Medical [address]22, [place] Rajesh, [place], 120, [id number], [place], [place], tel: [phone] , [place]. tel: [phone] Jason [facility] Wynn Referring In Womens malformation of 8-201 Roxie. Provider: Health JACK, placenta, second 8 700 Rajwinder PO Box trimesterEndo, Medical [place], 200 1522, [facility], metab diseases [place], comp preg, second 120, , [place], [id number], tri19 weeks [place], [address]. [place] gestation of [place], tel: tel: [phone] , [place]. tel: [phone] [facility] Matern care for Wynn Referring In Womens Ultrasound oth or susp poor - Roxie. Provider: Health JACK, [facility], 2nd 8 700 Rajwinder PO Box tri, unsp19 weeks Medical [place], 200 1522, gestation of Center [facility], [place], 120, , [place], [id number], [place], [address]. [place], tel: tel: [phone] , [place]. tel: [phone] Jason [place] Matern care for Wynn Referring In Womens oth or susp poor - Roxie. Provider: Bon SANTIAGO, [facility], 2nd 7 700 Rajwinder PO Box tri, unsp15 weeks Medical [place], 200 1522, gestation of Center [facility], [place], 120, , [place], [id number], [place], [address]. [place], tel: tel: [phone] , [place]. tel: [phone] Jason [place] Supervision of Wynn Referring In Womens other high risk Roxie. Provider: Health JACK, pregnancies, 7 700 Rajwinder PO Box first Medical [place], 200 1522, trimesterEncntr Center [facility], screen for [place], infections w sexl 120, , [place], [id number], mode of [place], [address]. [place] transmissEncounte [place], tel: tel: r for screening [phone] for oth , [place]. infec/parastc tel: diseasesEncounter [phone] for screening of [id number] weeks gestation of [facility] Less than 8 weeks Jun- Wynn Referring In Womens gestation of -201 Roxie. Provider: Health PA, pregnancyPersonal 7 700 Rajwinder PO Box history of comp Medical [place], 200 1522, of preg, chldbrth [facility], and the puerp [place], 120, , [place], , [place], [address]. [place], tel: tel: [phone] , [place]. tel: [phone] [facility] Supervision of Wynn Referring In Womens other high risk 3- Roxie. Provider: Health JACK, pregnancies, 7 700 Rajwinder PO Box first Medical [place], 200 1522, trimesterLess Center [facility], than 8 weeks [place], gestation of 120, , [place], , pregnancyPersonal [place], [address]. [place] history of comp [place], tel: tel: of preg, chldbrth [phone] and the puerp , [place]. tel: [phone] [facility] Malignant Roger-2 Wynn Referring In Womens neoplasm of unsp 6- Roxie. Provider: Health JACK, kidney, except 7 700 Rajwinder PO Box renal Medical [place], 200 1522, pelvisHepatomegal Center [facility], y, not elsewhere [place], classifiedPap 120, , [place], , Smear Screening, [place], [address]. [place] CervixEncounter [place], tel: tel: for surveillance [phone] of contraceptive , [place]. pills tel: [phone] [facility] Anemia, Mar-0 Wynn Referring In Womens unspecifiedTubal Roxie. Provider: Health JACK, preg w/out 7 700 Rajwinder PO Box intrauterine preg Medical [place], 200 1522, Center [facility], [place], 120, , [place], [id number], [place], [address]. [place], tel: tel: [phone] , [place]. tel: [phone] [facility] Anemia, Mar-0 Wynn In Womens unspecifiedTubal 7-201 Roxie. Health JACK, preg w/out 7 700 PO Box intrauterine preg Medical 1522, [place] [address] Rajesh, [place], 120, [id number], [place], [place], tel: [phone] , [place]. tel: [phone] [facility] Tubal preg w/out Feb-2 Wynn Referring In Womens intrauterine 4-201 Roxie. Provider: Bon SANTIAGO, pregTubal preg 7 700 Rajwinder PO Box w/out Medical [place], 200 1522, intrauterine preg Center [facility] Rajesh, , [place], 120, , [place], , [place], [address]. [place], tel: tel: [phone] , [place]. tel: [phone] [facility] Tubal preg w/out Feb-1 Wynn In Womens intrauterine preg 9-201 Roxie. Bon SANTIAGO, 7 700 PO Box Medical [address], [address], [facility] [place], 120, [id number], [place], [place], tel: [phone] , [place]. tel: [phone] [facility] Acute Feb-1 Wynn Referring In Womens posthemorrhagic 7-201 Roxie. Provider: Bon SANTIAGO, anemiaTubal preg 7 700 Rajwinder PO Box w/out Medical [place], 200 1522, intrauterine Center [facility], pregEncntr for [place], f/u exam aft 120, , [place], , trtmt for cond [place], [address]. [facility] [place], tel: tel: [phone] , [place]. tel: [phone] [facility] Acute Feb-1 Wynn Referring In Womens posthemorrhagic 0-201 Roxie. Provider: Bon SANTIAGO, anemiaTubal preg 7 700 Roxie Wynn PO Box w/out Medical K, 700 1522, intrauterine preg [facility] Dr Rajesh, [facility] [place], 120, [place] 120, [id number], [place], [place], [place], tel: [phone]. , [place]. tel: tel: [phone] Jason [place] Sep- [facility] In Womens 0-201 Yue. [facility], 5 700 PO Box Medical [address], [place] [address] Rajesh, [place], 120, [id number], [place], [place], tel: [phone] , [place]. tel: [phone] Family History Family Member Diagnosis Age At [...] older Payers Payer name Insurance type Covered green party ID Authorization(s) [facility] [id number] [facility] [id number] Social History Type Description Quantity Date Captured Unknown Vital Signs Date / Height Weight BMI Pulse Blood Temperature Respiratory Body Head BMI Time: Rate Pressure Rate Surface Circumference percentile Area Unknown Chief Complaint And Reason For Visit Unknown Chief Complaint And Reason For Visit Reason For Referral Reason For Referral Unknown Plan Of Care Date Type Action Status Appointment ChynaShantelle BOOKED Appointment ChynaShantelle BOOKED Appointment ChynaShantelle BOOKED Appointment ChynaShantelle BOOKED Appointment ChynaShantelle BOOKED Appointment ChynaShantelle BOOKED Appointment ChynaShantelle BOOKED Appointment ChynaShantelle BOOKED Appointment ChynaShantelle BOOKED Appointment ChyanShantelle BOOKED Appointment Shantelle Clemente BOOKED Appointment Shantelle Clemente BOOKED Future Order: Radiology Order Ultrasound OB Follow-up ([id number]) Ordered Future Order: Radiology Order Biophysical Profile without NST Ordered ([id number]) Future Order: Radiology Order Complete OB Ultrasound > 14 Ordered Weeks ([id number]) Future Order: Radiology Order Biophysical Profile without NST Ordered ([id number]) Future Order: Radiology Order Biophysical Profile without NST Ordered ([id number]) Future Order: Radiology Order Ultrasound OB Follow-up ([id number]) Ordered Date Type Problem Goal Intervention Status [...]
--- OUTSIDE RECORDS SUMMARY | 2018-02-28 06:06 | External Medical Summary | Continuity of Care Document ---
:1985 Author Organization [facility] [employer] [facility] Address [address] [place], [place] [id number] Phone Care Team Providers Name Role Phone [...] Description For Visit Members [facility] Polyhydramnios, January-1 Wynn Referring In Womens third trimester, 0-201 Roxie. Provider: Health JACK, not applicable or 8 700 [address] unspEncounter For [facility], 200 1522, Center [facility], Screening For [place], Streptococcus B35 120, , [place], , weeks gestation [place] [id number]. [place] of [place], tel: tel:+ [phone] , [place]. tel: [phone] Jason [place] Supervision of Wynn Referring In Womens Ultrasound other high risk 0-201 Roxie. Provider: Bon SANTIAGO, pregnancies, 8 700 Rajwinder [address] third Medical [place], 200 1522, trimesterPolyhydr Center [facility], amnios, third Lobito [place], trimester, not 120, , [place], , applicable or [place], [address]. 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 [id number] weeks tel: gestation of [phone] [facility] May-0 Wynn In Womens 7-201 Roxie. Health JACK, 8 700 PO Box Medical [address], [facility], Lobito [place], 120, [id number], [place], tel: [phone] , [place]. tel: [phone] [facility] Polyhydramnios, January-0 Wynn Referring In Womens third trimester, 3- Roxie. Provider: Health PA, not applicable or 8 700 Rajwinder PO Box unspOther Medical [place], 200 1522, malformation of [facility], placenta, third Lobito [place], [id number] weeks 120, , [place], [id number], gestation of [place], [address]. [place], tel: tel:[phone] , [place]. tel: [phone] Jason [place] Supervision of May-0 Wynn Referring In Womens Ultrasound other high risk 3- Roxie. Provider: Health PA, pregnancies, 8 700 Rajwinder PO Box third Medical [place], 200 1522, trimesterPolyhydr [facility], amnios, third Lobito [place], trimester, not 120, , [place], [id number], applicable or [place], [address]. [place] unspOther [place], tel: tel: malformation of [phone] placenta, third , [place]. [id number] weeks tel:+10-30 gestation of [id number] [facility] Apr-2 Wynn In Womens 7- Roxie. Health PA, 8 700 PO [address] Medical [address], [place], Lobito [place], 120, [id number], [place], tel:+ [phone] , [place]. tel: [phone] Jason [place] Polyhydramnios, Apr-2 Wynn Referring In Womens third trimester, 6- Roxie. Provider: Health PA, not applicable or 8 700 Rajwinder PO Box unsp33 weeks Medical [place], 200 1522, gestation of [facility], Lobito [place], 120, , [place], [id number], [place], [address]. [place], tel: tel:[phone] , [place]. tel: [phone] Jason [place] Supervision of Apr-2 Wynn Referring In Womens Ultrasound other high risk 6- Roxie. Provider: Health PA, pregnancies, 8 700 Rajwinder PO Box third Medical [place], 200 1522, trimesterPolyhydr [facility], amnios, third Lobito [place], trimester, not 120, , [place], [id number], applicable or [place], [address]. [place] unspOther [place], tel: tel:+[phone] malformation of [phone] placenta, third , [place]. [id number] weeks tel: gestation of [phone] [facility] Apr-1 Wynn In Womens Roxie. Health PA, 8 700 PO [place] [facility] [address], [place], Dr, [place], 120, [id number], [place], [place], tel: [phone] , [place]. tel: [phone] [facility] Polyhydramnios, Apr-1 Wynn Referring In Womens third trimester, Roxie. Provider: Health PA, not applicable or 8 700 Rajwinder [facility] unsp32 weeks [facility], 200 1522, gestation of [facility], Lobito [place], 120, , [place], [id number], [place], [address]. [place], tel: tel: [phone] , [place]. tel: [phone] [facility] Polyhydramnios, Apr-1 Wynn Referring In Womens Ultrasound third trimester, Roxie. Provider: Health PA, not applicable or 8 700 Rajwinder [facility], 200 1522, malformation of [facility], placenta, third Lobito [place], trimesterEndo, 120, , [place], [id number], nutritional and [place], [address]. [place] metab diseases [place], tel: tel:[phone] comp preg, third [phone] tri32 weeks , [place]. gestation of tel: [phone] [facility] Supervision of Apr-1 Sobbing Referring In Womens other high risk [place]. Provider: Health PA, pregnancies, 8 700 Rajwinder PO Box third [facility], 200 1522, trimesterPolyhydr Center [facility], amnios, third Drive, Singh ANDREW, trimester, not Suite , [place], [id number], applicable or 120, [address]. [place] unspEndoJacobo, tel: tel: nutritional and [place], [phone] metab diseases [address], comp preg, third [place]. triPersonal tel: history of comp [phone] of preg, chldbrth and the puerp [facility] Polyhydramnios, Apr-1 Wynn Referring In Womens Ultrasound third trimester, 2-201 Roxie. Provider: Health PA, not applicable or 8 700 Rajwinder PO Box [facility], 200 1522, malformation of [facility], placenta, third Lobito [place], [id number] weeks 120, , [place], [id number], gestation of [place], [address]. [place], tel: tel: [phone] , [place]. tel: [phone] Jason [place] Supervision of Apr-0 Wynn Referring In Womens Ultrasound other high risk 5- Roxie. Provider: Health PA, pregnancies, 8 700 Rajwinder PO Box [facility], 200 1522, trimesterMatern Center [facility], care for oth or Lobito [place], susp poor fetl 120, , [place], [id number], grth, third tri, [place], [address]. [place] unspOther [place], tel: tel: malformation of [phone] placenta, third , [place]. [id number] weeks tel: gestation of [phone] [facility] Polyhydramnios, Apr-0 Wynn Referring In Womens third trimester, 5-201 Roxie. Provider: Health PA, not applicable or 8 700 Rajwinder PO [facility], 200 1522, nutritional and [facility], metab diseases Lobito [place], comp preg, third 120, , [place], [id number], tri30 weeks [place], [address]. [place] gestation of [place], tel: tel: [phone] , [place]. tel: [phone] Jason [place] Supervision of Wynn Referring In Womens other high risk 5-201 Roxie. Provider: Health PA, pregnancies, 8 700 Rajwinder PO Box second [facility] [place], 200 1522, trimesterOther Center [facility], malformation of L[place], placenta, second 120, , [place], [id number], [id number] weeks [place], [address]. [place] gestation of [place], tel: tel: [phone] , [place]. tel: [phone] Jason [place] Supervision of Wynn Referring In Womens other high risk - Roxie. Provider: Health JACK, pregnancies, 8 700 Rajwinder PO Box second [facility] [place], 200 1522, [id number] weeks Center [facility], gestation of Lobito [place], 120, , [place], [id number], [place], [address]. [place], tel: tel: [phone] , [place]. tel: [phone] Jason [place] Other Wynn Referring In Womens Ultrasound malformation of - Roxie. Provider: Bon SANTIAGO, placenta, second 8 700 Rajwinder PO Box trimesterEndo, Medical [place], 200 1522, nutritional and [facility], metab diseases Lobito [place], comp preg, second 120, , [place], [id number], tri23 weeks [place], [address]. [place] gestation of [place], tel: tel: [phone] , [place]. tel: [phone] Jason [place] Sep- Wynn In Womens 1-201 Roxie. Health PA, 8 700 PO Box Medical 1522, [facility], [place], 120, [id number], [place], [place], tel: [phone] , [place]. tel: [phone] Jason [place] Other Wynn Referring In Womens malformation of Roxie. Provider: Health JACK, placenta, second 8 700 Rajwinder PO Box trimesterEndo, Medical [place], 200 1522, nutritional and Center [facility], metab diseases L[place], comp preg, second 120, , [place], [id number], tri19 weeks [place], [address]. [place] gestation of [place], tel: tel: [phone] , [place]. tel: [phone] Jason [place] Matern care for Wynn Referring In Womens Ultrasound oth or susp poor Roxie. Provider: Health JACK, fetl grth, 2nd 8 700 Rajwinder PO Box tri, unsp19 weeks Medical [place], 200 1522, gestation of Center [facility], [place], 120, , [place], , [place], [address]. [place], tel: tel:[phone] , [place]. tel: [phone] Jason [place] Matern care for Wynn Referring In Womens oth or susp poor Roxie. Provider: Bon SANTIAGO, fetl grth, 2nd 7 700 Rajwinder PO Box tri, unsp15 weeks Medical [place], 200 1522, gestation of [facility], Lob[place], 120, , [place], [id number], [place], [address]. [place], tel: tel:[phone] , [place]. tel: [phone] Jason [place] Supervision of Wynn Referring In Womens other high risk Roxie. Provider: Health PA, pregnancies, 7 700 Rajwinder PO Box first [facility] [place], 200 1522, trimesterEncntr [facility], screen for [place]obito [place], infections w sexl 120, , [place], [id number], mode of [place], [address]. [place] transmissEncounte [place], tel: tel: r for screening [phone] for oth , [place]. infec/parastc tel: diseasesEncounter [phone] for screening of [id number] weeks gestation of [facility] Less than 8 weeks Oct-2 Wynn Referring In Womens gestation of 7-201 Roxie. Provider: Bon SANTIAGO, pregnancyPersonal 7 700 Rajwinder PO Box history of comp Medical [place], 200 1522, of preg, chldbrth [facility], and the puerp [place], 120, , [place], [id number], [place], [address]. [place], tel: tel: [phone] , [place]. tel: [phone] [facility] Supervision of Jun- Wynn Referring In Womens other high risk 3-201 Roxie. Provider: Bon SANTIAGO, pregnancies, 7 700 Rajwinder PO Box first Medical [place], 200 1522, trimesterLess [facility], than 8 weeks [place], gestation of 120, , [place], , pregnancyPersonal [place], [address]. [place] history of comp [place], tel: tel: of preg, chldbrth [phone] and the puerp , [place]. 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 Provider: Bon SANTIAGO, kidney, except 7 700 Rajwinder PO Box renal Medical [place], 200 1522, pelvisHepatomegal [facility], y, not elsewhere [place], classifiedPap 120, , [place], [id number], Smear Screening, [place], [address]. [place] CervixEncounter [place], tel: tel: for surveillance [phone] of contraceptive , [place]. pills tel: [phone] [facility] Anemia, Mar-0 Wynn Referring In Womens unspecifiedTubal 9- Roxie. Provider: Bon SANTIAGO, preg w/out 7 700 Rajwinder PO Box intrauterine preg Medical [place], 200 1522, Center [facility] Dr Rajesh, [place], 120, , [place], [id number], [place], [address]. [place], tel: tel:+ [phone] , [place]. tel: [phone] [facility] Anemia, Mar-0 Wynn In Womens unspecifiedTubal 7-201 Roxie. Health PA, preg w/out 7 700 PO Box intrauterine preg Medical 1522, [place] Dr Rajesh, [facility] [place], 120, [id number], [place], [place], tel: [phone] , [place]. tel: [phone] [facility] Tubal preg w/out Feb-2 Wynn Referring In Womens intrauterine 4-201 Roxie. Provider: Health JACK, pregTubal preg 7 700 Rajwinder PO Box w/out Medical [place], 200 1522, intrauterine preg [facility] Dr Rajesh, [place], 120, , [place], , [place], [address]. [place], tel: tel: [phone] , [place]. tel: [phone] Jason [place] Tubal preg w/out Feb-1 Wynn In Womens intrauterine preg 9-201 Roxie. Health JACK, 7 700 PO Box Medical [address], [place] Dr Rajesh, [facility] [place], 120, [id number], [place], [place], tel: [phone] , [place]. tel: [phone] [facility] Acute Feb-1 Wynn Referring In Womens posthemorrhagic 7-201 Roxie. Provider: Health JACK, anemiaTubal preg 7 700 Rajwinder PO Box w/out Medical [place], 200 1522, intrauterine Center [facility], pregEncntr for Lobito [place], f/u exam aft 120, , [place], [id number], trtmt for cond Jacobo, [address]. [place] oth than [facility] [place], tel: tel: [phone] , . tel: [phone] Jason [place] Acute Oct- Wynn Referring In Womens posthemorrhagic 0-201 Roxie. Provider: Bon SANTIAGO, anemiaTubal preg 7 700 Roxie Wynn PO Box w/out Medical [place], 700 1522, intrauterine preg Center [facility] Dr Rajesh, [place], 120, [place] 120, [id number], [place], [place], [place], tel: [phone]. , [place]. tel: tel: [phone] Jason [place] Sep- Holdeman In Womens 0-201 Yue. Bon SANTIAGO, 5 700 PO [address] Medical [address], [place] Dr Rajesh, [place], 120, [id number], [place], [place], tel: [phone] , . tel: [phone] Family History Family Member Diagnosis Age At [...] older Payers Payer name Insurance type Covered constitution party ID Authorization(s) [facility] [id number] [facility] [id number] Social History Type Description Quantity Date Captured [...] Future Order: Radiology Order Ultrasound OB Follow-up ([id number]) Ordered Future Order: Radiology Order Biophysical Profile without NST Ordered ([id number]) Future Order: Radiology Order Ultrasound OB Follow-up ([id number]) Ordered Future Order: Radiology Order Biophysical Profile without NST Ordered ([id number]) Future Order: Radiology Order Biophysical Profile without NST Ordered ([id number]) Future Order: Radiology Order Complete OB Ultrasound > 14 Ordered Weeks ([id number]) Future Order: Radiology Order Biophysical Profile without NST Ordered ([id number]) Future Order: Radiology Order Biophysical Profile without NST Ordered ([id number]) Future Order: Radiology Order Ultrasound OB Follow-up ([id number]) Ordered Date Type Problem Goal Intervention Status [...]
--- OUTSIDE RECORDS SUMMARY | 2018-02-28 06:06 | External Medical Summary | Continuity of Care Document ---
:1985 Author Organization [facility] Address [address] [place], [place] [id number] Phone Care Team Providers Name Role Phone [...] Team Description For Visit Members [facility] May-0 Wynn In Womens 7-201 Roxie. Health JACK, 8 700 [address], [address]esh, [place], 120, [id number], [place], tel:[phone] , [place]. tel: [phone] [facility] Polyhydramnios, May-0 Wynn Referring In Womens third trimester, 3- Roxie. Provider: Health JACK, not applicable or 8 700 Rajwinder [address] unspOther Medical [place], [address] 1522, malformation of [facility], placenta, third [place], weeks 120, , [place], [id number], gestation of [place], [address]. [place], tel: tel:[phone] , [place]. tel: [phone] Jason [place] Supervision of January-0 Wynn Referring In Womens Ultrasound other high risk 3- Roxie. Provider: Bon SANTIAGO, pregnancies, 8 700 Rajwinder [address] third Medical [place], 200 1522, trimesterPolyhydr [facility], amnios, third [place], trimester, not 120, , [place], , applicable or [place], [address]. [place] unspOther [place], tel: tel:2 malformation of [phone] placenta, third , [place]. [id number] weeks tel: gestation of [phone] [facility] Apr-2 Wynn In Womens 7-201 Roxie. Health JACK, 8 700 [address], [address] Rajesh, [place], [address], [id number], [place], tel:[phone] , [place]. tel: [phone] Jason [place] Polyhydramnios, Apr-2 Wynn Referring In Womens third trimester, 6- Roxie. Provider: Health JACK, not applicable or 8 700 Rajwinder [address] unsp33 weeks Medical [place], 200 1522, gestation of [facility], [place], 120, , [place], , [place], [address]. [place], tel: tel:[phone] , [place]. tel: [phone] Jason [place] Supervision of Apr-2 Wynn Referring In Womens Ultrasound other high risk Roxie. Provider: Health PA, pregnancies, 8 700 Rajwinder PO Box third Medical [place], 200 1522, trimesterPolyhydr [facility], amnios, third [place], trimester, not 120, , [place], , applicable or [place], [address]. [place] unspOther [place], tel: tel: malformation of [phone] placenta, third , [place]. [id number] weeks tel: gestation of [phone] [facility] Polyhydramnios, Apr-1 Wynn Referring In Womens third trimester, Roxie. Provider: Health PA, not applicable or 8 700 Rajwinder PO Box unsp32 weeks Medical [place], 200 1522, gestation of [facility], [place], 120, , [place], , [place], [address]. [place], tel: tel:[phone] , [place]. tel: [phone] Jason [place] Polyhydramnios, Apr-1 Wynn Referring In Womens Ultrasound third trimester, Roxie. Provider: Health PA, not applicable or 8 700 Rajwinder PO Box unspOther Medical [place], 200 1522, malformation of [facility], placenta, third [place], trimesterEndo, 120, , [place], , nutritional and [place], [address]. [place] metab diseases [place], tel: tel:[phone] comp preg, third [phone] tri32 weeks , [place]. gestation of tel: [phone] Jason [place] Apr-1 Wynn In Womens 8-201 Roxie. Health PA, 8 700 [address], [address] [place], [place], [id number], [place], tel: [phone] , [place]. tel: [phone] Jason [place] Supervision of Apr-1 Sobbing Referring In Womens other high risk 2- Flash. Provider: Health PA, pregnancies, 8 700 Rajwinder PO Box third Medical [place], 200 1522, trimesterPolyhydr [facility], amnios, third Drive, Singh ANDREW, trimester, not Suite , [place], , applicable or 120, [address]. [place] Jacobo Cho, tel: tel: nutritional and [place], [phone] metab diseases [address], comp preg, third [place]. triPersonal tel: history of comp [phone] of preg, chldbrth and the puerp [facility] Polyhydramnios, Apr-1 Wynn Referring In Womens Ultrasound third trimester, 2- Roxie. Provider: Health PA, not applicable or 8 700 Rajwinder [facility] [place], 200 1522, malformation of [facility], placenta, third DrLobito, weeks 120, , [place], , gestation of [place], [address]. [place], tel: tel: [phone] , [place]. tel: [phone] Jason [place] Polyhydramnios, Apr-0 Wynn Referring In Womens third trimester, 5-201 Roxie. Provider: Health PA, not applicable or 8 700 Rajwinder PO Box unspEndo, Medical [place], 200 1522, nutritional and [facility], metab diseases [place], comp preg, third 120, , [place], , tri30 weeks [place], [address]. [place] gestation of [place], tel: tel: [phone] , [place]. tel: [phone] [place] Supervision of Dec-0 Wynn Referring In Womens Ultrasound other high risk 5-201 Roxie. Provider: Health PA, pregnancies, 8 700 Rajwinder PO Box third Medical [place], 200 1522, trimesterMatern [facility], care for oth or [place], susp poor fetl 120, , [place], [id number], grth, third tri, [place], [address]. [place]spOther [place], tel: tel: malformation of [phone] placenta, third , [place]. [id number] weeks tel: gestation of [phone] [facility] Supervision of Wynn Referring In Womens other high risk 5-201 Roxie. Provider: Health PA, pregnancies, 8 700 Rajwinder PO Box second Medical [place], 200 1522, trimesterOther [facility], malformation of [place], placenta, second 120, , [place], [id number], [id number] weeks [place], [address]. [place] gestation of [place], tel: tel:[phone] , [place]. tel: [phone] Jason [place] Supervision of Wynn Referring In Womens other high risk 5-201 Roxie. Provider: Health PA, pregnancies, 8 700 Rajwinder PO Box second Medical [place], 200 1522, [id number] weeks [facility], gestation of [place], 120, , [place], [id number], [place], [address]. [place], tel: tel: [phone] , [place]. tel: [phone] Jason [place] Other Oct- Wynn Referring In Womens Ultrasound malformation of 5-201 Roxie. Provider: Health JACK, placenta, second 8 700 Rajwinder PO Box trimesterEndo, Medical [place], 200 1522, nutritional and [facility], metab diseases [place], comp preg, second 120, , [place], [id number], tri23 weeks [place], [address]. [place] gestation of [place], tel:[phone] tel: [phone] , [place]. tel: [phone] Jason [place] Sep- Wynn In Womens Roxie. Health PA, 8 700 [address], Center Rajesh, [place], 120, [id number], [place], tel: [phone] , [place]. tel: [phone] Jason [place] Other Sep- Wynn Referring In Womens malformation of Roxie. Provider: Health PA, placenta, second 8 700 Rajwinder PO Box trimesterEndo, Medical [place], 200 1522, nutritional and [facility], metab diseases , [place], comp preg, second 120, , [place], [id number], tri19 weeks [place], [address]. [place] gestation of [place], tel: tel: [phone] , [place]. tel: [phone] Jason [place] Matern care for Wynn Referring In Womens Ultrasound oth or susp poor Roxie. Provider: Health JACK fetl garrick, 2nd 8 700 Rajwinder PO Box tri, unsp19 weeks Medical [place], 200 1522, gestation of [facility], [place], 120, , [place], [id number], [place], [address]. [place], tel: tel:[phone] , [place]. tel: [phone] Jason [place] Matern care for Wynn Referring In Womens oth or susp poor Roxie. Provider: Health JACK fetl garrick, 2nd 7 700 Rajwinder PO Box tri, unsp15 weeks Medical [place], 200 1522, gestation of [facility], [place], 120, , [place], [id number], [place], [address]. [place], tel: tel: [phone] , [place]. tel:[phone] Jason [place] Supervision of Jul- Wynn Referring In Womens other high risk 1-201 Roxie. Provider: Health PA, pregnancies, 7 700 Rajwinder PO Box first Medical [place], 200 1522, trimesterEncntr [facility], screen for [place], infections w sexl 120, , [place], [id number], mode of [place], [address]. [place] transmissEncounte [place], tel: tel:[phone] r for screening [phone] for oth , [place]. infec/parastc tel: diseasesEn[facility] [phone] for screening of weeks gestation of [facility] Less than 8 weeks Oct-2 Wynn Referring In Womens gestation of 7-201 Roxie. Provider: Health JACK, pregnancyPersonal 7 700 Rajwinder PO Box history of comp Medical [place], 200 1522, of preg, chldbrth [facility], and the puerp [place], 120, , [place], , [place], [address]. [place], tel: tel:[phone] , [place]. tel: [phone] Jason [place] Supervision of Wynn Referring In Womens other high risk 3-201 Roxie. Provider: Health PA, pregnancies, 7 700 Rajwinder PO Box first Medical [place], 200 1522, trimesterLess [facility], than 8 weeks [place], gestation of 120, , [place], , pregnancyPersonal [place], [address]. [place] history of comp [place], tel: tel:[phone] of preg, chldbrth [phone] and the puerp , [place]. tel: [phone] Jason [place] Malignant Roger-2 Wynn Referring In Womens neoplasm of unsp 6-201 Roxie. Provider: Health JACK, kidney, except 7 700 Rajwinder PO Box renal Medical [place], 200 1522, pelvisHepatomegal [facility], y, not elsewhere Dr, [place], classifiedPap 120, , [place], [id number], Smear Screening, [place], [address]. [place] CervixEncounter [place], tel: tel: for surveillance [phone] of contraceptive , [place]. pills tel: [phone] [facility] Anemia, Mar-0 Wynn Referring In Womens unspecifiedTubal 9- Roxie. Provider: Health PA, preg w/out 7 700 Rajwinder PO Box intrauterine preg Medical [place], 200 1522, [facility] Dr Rajesh, [place], 120, , [place], [id number], [place], [address]. [place], tel: tel:[phone] , [place]. tel: [phone] [facility] Anemia, Mar-0 Wynn In Womens unspecifiedTubal 7- Roxie. Health PA, preg w/out 7 700 PO Box intrauterine preg Medical [address], [address] Rajesh, [facility], 120, [id number], [place], tel:[phone] , [place]. tel: [phone] [facility] Tubal preg w/out Oct-2 Wynn Referring In Womens intrauterine 4- Roxie. Provider: Health PA, pregTubal preg 7 700 Rajwinder PO Box w/out Medical [place], 200 1522, [facility], [place], 120, , [place], [id number], [place], [address]. [place], tel: tel: [phone] , [place]. tel: [phone] [facility] Tubal preg w/out Oct- Wynn In Womens intrauterine preg - Roxie. Health PA, 7 700 PO [address] Medical [address], [address] Rajesh, [place], 120, [id number], [place], [place], tel:[phone] , [place]. tel: [phone] Jason [place] Acute Feb-1 Wynn Referring In Womens posthemorrhagic 7-201 Roxie. Provider: Health JACK, anemiaTubal preg 7 700 Rajwinder PO Box w/out Medical [place], 200 1522, intrauterine [facility], pregEncntr for [place], f/u exam aft 120, , [place], [id number], trtmt for emily [place], [address]. [place] oth [facility] [place], tel: tel: [phone] , [place]. tel: [phone] Jason [place] Acute Feb-1 Wynn Referring In Womens posthemorrhagic 0-201 Roxie. Provider: Bon SANTIAGO anemiaTubal preg 7 700 Roxie Wynn PO Box w/out Medical [place], 700 1522, intrauterine preg [facility] Dr Rajesh, [facility] [place], 120, [place] 120, , Jacobo [place], [place], [place], tel: [phone]. , [place]. tel: tel: [phone] Jason [place] Sly- Holdeman In Womens 0-201 Yue. Bon SANTIAGO, 5 700 [address] Medical [address], [address] Rajesh, [facility] [place], 120, [id number], [facility] [place], tel: [phone] , . tel: [phone] Family History Family Member Diagnosis Age At [...] name Insurance type Covered democrat ID Authorization(s) [facility] [id number] [facility] [id number] Social History Type Description Quantity Date Captured Unknown Vital Signs Date / Height Weight BMI Pulse Blood Temperature Respiratory Body Head BMI Time: Rate Pressure Rate Surface Circumference percentile Area Unknown Chief Complaint And Reason For Visit Unknown Chief Complaint And Reason For Visit Reason For Referral Reason For Referral Unknown Plan Of Care Date Type Action Status Appointment Chyna, Shantelle BOOKED Appointment Chyna, Shantelle BOOKED Appointment Chyna, Shantelle BOOKED Appointment Chyna, Shantelle BOOKED Appointment Chyna, Shantelle BOOKED Appointment Chyna, Shantelle BOOKED Appointment Chyna, Shantelle BOOKED Appointment Chyna, Shantelle BOOKED Appointment Chyna, Shantelle BOOKED Appointment Chyna, Shantelle BOOKED Future Order: Radiology Order Ultrasound OB Follow-up ([id number]) Ordered Future Order: Radiology Order Biophysical Profile without NST Ordered ([id number]) Future Order: Radiology Order Ultrasound OB Follow-up ([id number]) Ordered Future Order: Radiology Order Biophysical Profile without NST Ordered ([id number]) Future Order: Radiology Order Complete OB Ultrasound > 14 Ordered Weeks ([id number]) Future Order: Radiology Order Biophysical Profile without NST Ordered ([id number]) Future Order: Radiology Order Biophysical Profile without NST Ordered ([id number]) Future Order: Radiology Order Ultrasound OB Follow-up ([id number]) Ordered Date Type Problem Goal Intervention Status [...]
--- OUTSIDE RECORDS SUMMARY | 2018-02-28 06:07 | External Medical Summary | Continuity of Care Document ---
:1985 Author Organization [facility] Address [address] [place], [place] [id number] Phone Care Team Providers Name Role Phone [...] - trimester 31 weeks gestation of - Supervision of other [...] [facility], [facility] Supervision of other high [...] the puerp Depression Active Procedures Procedure Date biophys prfl w/o nstress test Results Test Name Date and Time Measure Units Reference Range Abnormal Flag Comments Unknown Advance Directives Directive Yes / No Effective Date File Name Unknown Encounters Encounter Practice Location Reason(s) Diagnoses Date Provider Care Team Description For Visit Members Jason [place] Polyhydramnios, Wynn Referring In Womens third trimester, 3-201 Roxie. Provider: Health PA, not applicable or 8 700 Rajwinder [address] unspOther Medical [place], 200 1522, malformation of [facility], placenta, third [place], [id number] weeks 120, , [place], [id number], gestation of [place], [address]. [place], tel: tel:[phone] , [place]. tel: [phone] Jason [place] Supervision of May-0 Wynn Referring In Womens Ultrasound other high risk 3- Roxie. Provider: Health PA, pregnancies, 8 700 Rajwinder PO Box third Medical [place], 200 1522, trimesterPolyhydr [facility], amnios, third [place], trimester, not 120, , [place], [id number], applicable or [place], [address]. [place] unspOther [place], tel: tel: malformation of [phone] placenta, third , [place]. [email or web address] weeks tel: gestation of [phone] [facility] Apr-2 Wynn In Womens 7-201 Roxie. Health PA, 8 700 [address] Medical [address], [facility], [place], 120, [id number], [place], tel:+ [phone] , [place]. tel: [phone] Jason [place] Polyhydramnios, Apr-2 Wynn Referring In Womens third trimester, 6- Roxie. Provider: Health PA, not applicable or 8 700 Rajwinder PO Box unsp33 weeks Medical [place], 200 1522, gestation of [facility], [place], 120, , [place], [id number], [place], [address]. [place], tel: tel:[phone] , [place]. tel: [phone] Jason [place] Supervision of Apr-2 Wynn Referring In Womens Ultrasound other high risk 6- Roxie. Provider: Health PA, pregnancies, 8 700 Rajwinder PO Box third Medical [place], 200 1522, trimesterPolyhydr [facility] [place], amnios, third [place], trimester, not 120, , [place], [id number], applicable or [place], [address]. [place] unspOther [place], tel: tel:+ malformation of [phone] placenta, third , [place]. [email or web address] weeks tel: gestation of [phone] [facility] Polyhydramnios, Apr-1 Wynn Referring In Womens third trimester, Roxie. Provider: Health PA, not applicable or 8 700 Rajwinder PO Box unsp32 weeks Medical [place], 200 1522, gestation of [facility], [place], 120, , [place], , [place], [address]. [place], tel: tel:[phone] , [place]. tel: [phone] [facility] Polyhydramnios, Apr-1 Wynn Referring In Womens Ultrasound third trimester, Roxie. 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 [place] metab diseases [place], tel: tel:[phone] comp preg, third [phone] [phone] tri32 weeks , [place]. gestation of tel: [phone] [facility] Supervision of Dec- Sobbing Referring In Womens other high risk - Flash. Provider: Health PA, pregnancies, 8 700 Rajwinder PO Box [facility] 200 1522, trimesterPolyhydr [facility], [place], amnios, third Singh Sheth, trimester, not Suite , [place], [id number], applicable or 120, [address]. [place] carmenpEnJacobo roche, tel: tel:+[phone] nutritional and [place], [phone] metab diseases [address], comp preg, third [place]. Lorrial tel: history of comp [phone] of preg, chldbrth and the puerp [facility] Polyhydramnios, Apr-1 Wynn Referring In Womens Ultrasound third trimester, 2- Roxie. Provider: Health PA, not applicable or 8 700 Rajwinder PO Box unspOther Medical [place], 200 1522, malformation of [facility], placenta, third [place], [id number] weeks 120, , [place], [id number], gestation of [place], [address]. [place], tel: tel:+ [phone] , [place]. tel: [phone] [facility] Polyhydramnios, Apr-0 Wynn Referring In Womens third trimester, 5- Roxie. Provider: Health PA, not applicable or 8 700 Rajwinder PO Box unspEndo, Medical [place], 200 1522, nutritional and [facility], metab diseases [place], comp preg, third 120, , [place], [id number], tri30 weeks [place], [address]. [place] gestation of [place], tel: tel: [phone] , [place]. tel: [phone] [facility] Supervision of Apr-0 Wynn Referring In Womens Ultrasound other high risk -201 Roxie. Provider: Health PA, pregnancies, 8 700 Rajwinder PO Box third Medical [place], 200 1522, trimesterMatern [facility], care for oth or [place], susp poor fetl 120, , [place], [id number], grth, third tri, [place], [address]. [place] unspOther [place], tel: tel:[phone] malformation of [phone] placenta, third , [place]. [email or web address] weeks tel:+10-30 gestation of [phone] [facility] Supervision of Mar-1 Wynn Referring In Womens other high risk 5-201 Roxie. Provider: Health JACK, pregnancies, 8 700 Rajwinder PO Box second Medical [place], 200 1522, trimesterOther [facility], malformation of [place], placenta, second 120, , [place], [id number], [id number] weeks [place], [address]. [place] gestation of [place], tel: tel:[phone] , [place]. tel: [phone] Jason [place] Supervision of Oct- Wnyn Referring In Womens other high risk 5-201 Roxie. Provider: Health PA, pregnancies, 8 700 Rajwinder PO Box second Medical [place], 200 1522, [email or web address] weeks [facility], gestation of [place], 120, , [place], [id number], [place], [address]. [place], tel: tel: [phone] , [place]. tel: [phone] Jason [place] Other Oct- Wynn Referring In Womens Ultrasound malformation of 5- Roxie. Provider: Health JACK, placenta, second 8 700 Rajwinder PO Box trimesterEndo, Medical [place], 200 1522, nutritional and [facility], metab diseases [place], comp preg, second 120, , [place], [id number], tri23 weeks [place], [address]. [place] gestation of [place], tel: tel: [phone] , [place]. tel: [phone] Jason [place] Sep- Wynn In Womens 1-201 Roxie. Health PA, 8 700 PO [address] Medical [address], [facility], [place], 120, [id number], [place], [place], tel: [phone] , [place]. tel: [phone] Jason Mcleod Sep- Wynn Referring In Womens malformation of 8-201 Roxie. Provider: Health JACK, placenta, second 8 700 Rajwinder PO Box trimesterEndo, Medical [place], 200 1522, nutritional and [facility], metab diseases [place], comp preg, second 120, , [place], [id number], tri19 weeks [place], [address]. [place] gestation of [place], tel: tel: [phone] , [place]. tel: [phone] Jason [place] Matern care for Wynn Referring In Womens Ultrasound oth or susp poor 8-201 Roxie. Provider: Bon SANTIAGO, jv cardoza, 2nd 8 700 Arjwinder PO Box tri, unsp19 weeks Medical [place], 200 1522, gestation of [facility], [place], 120, , [place], [id number], [place], [address]. [place], tel: tel: [phone] , [place]. tel: [phone] Jason [place] Matern care for Wynn Referring In Womens oth or susp poor -201 Roxie. Provider: Bon SANTIAGO, [facility], 2nd 7 700 Rajwinder PO Box tri, unsp15 weeks Medical [place], 200 1522, gestation of [facility], [place], 120, , [place], [id number], [place], [address]. [place], tel: tel: [phone] , [place]. tel: [phone] Jason [place] Supervision of Wynn Referring In Womens other high risk - Roxie. Provider: Bon SANTIAGO, pregnancies, 7 700 Rajwinder PO Box first [facility], 200 1522, trimesterEncntr [facility], screen for [place], infections w sexl 120, , [place], [id number], mode of [place], [address]. [place] transmissEncounte [place], tel: tel:[phone] r for screening [phone] for ot , [place]. infec/parastc tel: diseasesEncounter [phone] for screening of vuoicj20 weeks gestation of [facility] Less than 8 weeks Jun- Wynn Referring In Womens gestation of -201 Roxie. Provider: Bon SANTIAGO, pregnancyPersonal 7 700 Rajwinder PO Box history of comp Medical [place], 200 1522, of preg, chldbrth [facility], and the puerp [place], 120, , [place], , [place], [address]. [place], tel: tel: [phone] , [place]. tel: [phone] [facility] Supervision of Jun- Wynn Referring In Womens other high risk 3-201 Roxie. Provider: Health PA, pregnancies, 7 700 Rajwinder PO Box first Medical [place], 200 1522, trimesterLess [facility], than 8 weeks [place], gestation of 120, , [place], , pregnancyPersonal [place], [address]. [place] history of comp [place], tel: tel: of preg, chldbrth [phone] and the puerp , [place]. tel: [phone] [facility] Malignant Roger-2 Wynn Referring In Womens neoplasm of unsp 6-201 Roxie. Provider: Health PA, kidney, except 7 700 Rajwinder PO Box renal Medical [place], 200 1522, pelvisHepatomegal [facility], y, not elsewhere [place], classifiedPap 120, , [place], , Smear Screening, [place], [address]. [place] CervixEncounter [place], tel: tel: for surveillance [phone] of contraceptive , [place]. pills tel: [phone] [facility] Anemia, Mar-0 Wynn Referring In Womens unspecifiedTubal 9- Roxie. Provider: Health PA, preg w/out 7 700 Rajwinder PO Box intrauterine preg Medical [place], 200 1522, [facility], [place], 120, , [place], , [place], [address]. [place], tel: tel: [phone] , [place]. tel: [phone] Jason [place] Anemia, Mar-0 Wynn In Womens unspecifiedTubal 7-201 Roxie. Health JACK, preg w/out 7 700 PO Box intrauterine preg Medical 1522, [address], [place], 120, [id number], [place], [place], tel:+ [phone] , [place]. tel: [phone] Jason [place] Tubal preg w/out Feb-2 Wynn Referring In Womens intrauterine 4-201 Roxie. Provider: Bon SANTIAGO, pregTubal preg 7 700 Rajwinder PO Box w/out Medical [place], 200 1522, intrauterine preg [facility] Dr Rajesh, [place], 120, , [place], , [place], [address]. [place], tel: tel: [phone] , [place]. tel: [phone] Jason [place] Tubal preg w/out Feb-1 Wynn In Womens intrauterine preg 9-201 Roxie. Bon SANTIAGO, 7 700 PO Box Medical [address], [address], [place], 120, , [place], [place], tel: [phone] , [place]. tel: [phone] Jason [place] Acute Feb-1 Wynn Referring In Womens posthemorrhagic 7-201 Roxie. Provider: Bon SANTIAGO, anemiaTubal preg 7 700 Rajwinder PO Box w/out Medical [place], 200 1522, intrauterine [facility], pregEncntr for [place], f/u exam aft 120, , [place], , trtmt for cond [place], [address]. [facility] [place], tel: tel: [phone] , [place]. tel: [phone] Jason [place] Acute Feb-1 Wynn Referring In Womens posthemorrhagic 0-201 Roxie. Provider: Bon SANTIAGO, anemiaTubal preg 7 700 Roxie Wynn PO Box w/out Medical K, 700 1522, intrauterine preg Center [address], [facility] Dr ANDREW, 120, [place] 120, [id number], [place], [place], [place], tel: [phone]. , . tel: tel: [phone] Jason [place] Sep- Esperanza In Womens 0-201 Yue. [facility], 5 700 PO [facility] [address], [address] Rajesh, [facility] [place], 120, [id number], [place], [place], tel: [phone] , [place]. tel: [phone] Family History Family Member Diagnosis Age At [...] Insurance type Covered green party ID Authorization(s) [facility] [id number] [facility] [id number] Social History Type Description Quantity Date Captured [...] o BOOKED Appointment ChynaShantelle BOOKED Appointment ChynaShantelle BOOKED Appointment ChynaShantelle BOOKED Appointment ChynaShantelle BOOKED Appointment ChynaShantelle BOOKED Appointment Chyna, Shantelle BOOKED Appointment ChynaShantelle de la o BOOKED Appointment Chyna, Shantelle BOOKED Appointment ChynaShantelle BOOKED Future Order: Radiology Order Biophysical Profile without NST Ordered ([id number]) Future Order: Radiology Order Ultrasound OB Follow-up ([id number]) Ordered Future Order: Radiology Order Biophysical Profile without NST Ordered ([id number]) Future Order: Radiology Order Ultrasound OB Follow-up ([id number]) Ordered Future Order: Radiology Order Biophysical Profile without NST Ordered ([id number]) Future Order: Radiology Order Complete OB Ultrasound > 14 Ordered Weeks ([id number]) Future Order: Radiology Order Biophysical Profile without NST Ordered ([id number]) Future Order: Radiology Order Ultrasound OB Follow-up ([id number]) Ordered Date Type Problem Goal Intervention Status [...]
--- OUTSIDE RECORDS SUMMARY | 2018-02-28 06:07 | External Medical Summary | Continuity of Care Document ---
:1985 Author Organization [facility] Address [address] [place], [place] [id number] Phone Care Team Providers Name Role Phone [...] unspEncounter For Medical [place], 200 1522, [facility], Screening For [place], Streptococcus B35 120, , [place], [id number], weeks gestation [place], [address]. [place], tel: tel: [phone] , [place]. tel: [phone] Jason [place] Supervision of Wynn Referring In Womens Ultrasound other high risk 0-201 Roxie. Provider: Bon SANTIAGO, pregnancies, 8 700 [address] third Medical [place], 200 1522, trimesterPolyhydr [facility], amnios, third [place], trimester, not 120, , [place], [id number], applicable or [place], [address]. 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 [id number] weeks tel: gestation of [phone] [facility] January-0 Wynn In Womens 7-201 Roxie. [facility] PA, 8 700 [address], [facility], [place], 120, [id number], [place], tel: [phone] , [place]. tel: [phone] Jason [place] Polyhydramnios, May-0 Wynn Referring In Womens third trimester, 3-201 Roxie. Provider: Health PA, not applicable or 8 700 Rajwinder PO Box unspOther Medical [place], 200 1522, malformation of [facility], placenta, third [place], [id number] weeks 120, , [place], [id number], gestation of [place], [address]. [place], tel: tel:[phone] , [place]. tel: [phone] Jason [place] Supervision of May-0 Wynn Referring In Womens Ultrasound other high risk 3- Roxie. Provider: Health PA, pregnancies, 8 700 Rajwinder PO Box third Medical Car[place], 200 1522, trimesterPolyhydr [facility], amnios, third [place], trimester, not 120, , [place], [id number], applicable or [place], [address]. [place] unspOther [place], tel: tel:[phone] malformation of [phone] placenta, third , [place]. [email or web address] weeks tel: gestation of [phone] [facility] Apr-2 Wynn In Womens 7-201 Roxie. [facility] PA, 8 700 [address], [facility], , [place], 120, [id number], [place], tel:+ [phone] , [place]. tel: [phone] Jason [place] Polyhydramnios, Apr-2 Wynn Referring In Womens third trimester, 6-201 Roxie. Provider: Health PA, not applicable or 8 700 Rajwinder PO Box unsp33 weeks Medical [place], 200 1522, gestation of [facility], [place], 120, , [place], [id number], [place], [address]. [place], tel: tel:[phone] , [place]. tel: [phone] Jason [place] Supervision of Apr-2 Wynn Referring In Womens Ultrasound other high risk 6-201 Roxie. Provider: Health PA, pregnancies, 8 700 Rajwinder PO Box third Medical [place], 200 1522, trimesterPolyhydr [facility], [place], amnios, third [place], trimester, not 120, , [place], [id number], applicable or [place], [address]. [place] unspOther [place], tel: tel: malformation of [phone] placenta, third , [place]. [id number] weeks tel: gestation of [phone] [facility] Polyhydramnios, Apr-1 Wynn Referring In Womens third trimester, 9- Roxie. Provider: Health PA, not applicable or 8 700 Rajwinder PO Box unsp32 weeks Medical [place], 200 1522, gestation of [facility], [place], 120, , [place], [id number], [place], [address]. [place], tel: tel: [phone] , [place]. tel: [phone] [facility] Polyhydramnios, Apr-1 Wynn Referring In Womens Ultrasound third trimester, 9- Roxie. Provider: Health PA, not applicable or 8 700 Rajwinder PO Box unspOther Medical [place], 200 1522, malformation of [facility], [place], placenta, third [place], trimesterEndo, 120, , [place], [id number], nutritional and [place], [address]. [place] metab diseases [place], tel: tel:[phone] comp preg, third [phone] [id number] tri32 weeks , [place]. gestation of tel: [phone] [facility] Supervision of Dec- Sobbing Referring In Womens other high risk 2-201 Flash. Provider: Health PA, pregnancies, 8 700 Rajwinder PO Box third Medical [place], 200 1522, trimesterPolyhydr [facility], [place], amnios, third Drive, Singh NADREW, trimester, not Suite , [place], [id number], applicable or 120, [address]. [place] Jacobo Cho, tel: tel: nutritional and [place], [phone] metab diseases [address], comp preg, third [place]. triPersonal tel: history of comp [phone] of preg, chldbrth and the puerp [facility] Polyhydramnios, Apr-1 Wynn Referring In Womens Ultrasound third trimester, 2-201 Roxie. Provider: Health PA, not applicable or 8 700 Rajwinder PO Box unspOther [facility], 200 1522, malformation of [facility], placenta, third [place], [id number] weeks 120, , [place], [id number], gestation of [place], [address]. [place], tel: tel: [phone] , [place]. tel: [phone] [facility] Polyhydramnios, Apr-0 Wynn Referring In Womens third trimester, 5-201 Roxie. Provider: Health PA, not applicable or 8 700 Rajwinder PO [facility] 200 1522, nutritional and [facility], metab diseases [place], comp preg, third 120, , [place], [id number], tri30 weeks [place], [address]. [place] gestation of [place], tel: tel: [phone] , [place]. tel:[phone] [facility] Supervision of Apr-0 Wynn Referring In Womens Ultrasound other high risk 5-201 Roxie. Provider: Health JACK, pregnancies, 8 700 Rajwinder PO Box [facility], 200 1522, trimesterMatern [facility], care for oth or [place], susp poor fetl 120, , [place], [id number], grth, third tri, [place], [address]. [place] unspOther [place], tel: tel: malformation of [phone] placenta, third , [place]. [id number] weeks tel: gestation of [phone] [facility] Supervision of Nov- Wynn Referring In Womens other high risk 5-201 Roxie. Provider: Health PA, pregnancies, 8 700 Rajwinder PO Box second Medical [place], 200 1522, trimesterOther [facility], malformation of [place], placenta, second 120, , [place], [id number], [id number] weeks [place], [address]. [place] gestation of [place], tel: tel:[phone] , [place]. tel: [phone] Jason [place] Supervision of Oct- Wynn Referring In Womens other high risk 5-201 Roxie. Provider: Health PA, pregnancies, 8 700 Rajwinder PO Box second Medical [place], 200 1522, weeks [facility], gestation of DrLobito, 120, , [place], [id number], [place], [address]. [place], tel: tel: [phone] , [place]. tel: [phone] Jason [place] Other Wynn Referring In Womens Ultrasound malformation of 5- Roxie. Provider: Health PA, placenta, second 8 700 Rajwinder PO Box trimesterEndo, Medical Carvalho, 200 1522, nutritional and [facility], metab diseases [place], comp preg, second 120, , [place], [id number], tri23 weeks [place], [address]. [place] gestation of [place], tel: tel:[phone] , [place]. tel: [phone] Jason [place] Sep- Wynn In Womens 1-201 Roxie. Health PA, 8 700 [address] Medical [address], [place], [place], 120, [id number], [place], tel: [phone] , [place]. tel: [phone] Jason [place] Other Sep- Wynn Referring In Womens malformation of 8-201 Roxie. Provider: Health PA, placenta, second 8 700 Rajwinder PO Box trimesterEndo, Medical [place]ho, 200 1522, nutritional and [facility], metab diseases [place], comp preg, second 120, , [place], [address], tri19 weeks [place], [address]. [place] gestation of [place], tel: tel: [phone] , [place]. tel: [phone] [facility] Matern care for Wynn Referring In Womens Ultrasound oth or susp poor - Roxie. Provider: [facility], [facility], [facility] 8 700 Rajwinder PO Box tri, unsp19 weeks Medical Carvalho, 200 1522, gestation of [facility], [place], 120, , [place], [id number], [place], [address]. [place], tel: tel: [phone] , [place]. tel: [phone] Jason [place] Matern care for Wynn Referring In Womens oth or susp poor - [place]. Provider: Bon SANTIAGO, [facility], [facility] 7 700 Rajwinder PO Box tri, unsp15 weeks Medical [place]ho, 200 1522, gestation of [facility], [place], 120, , [place], [id number], [place], [address]. [place], tel: tel: [phone] , [place]. tel: [phone] Jason [place] Supervision of Wynn Referring In Womens other high risk [place]. Provider: Health JACK, pregnancies, 7 700 Rajwinder PO Box first Medical [place], 200 1522, trimesterEncntr [facility], screen for [place], infections w sexl 120, , [place], [id number], mode of [place], [address]. [place] transmissEncounte [place], tel: tel: r for screening [phone] for oth , [place]. infec/parastc tel: diseasesEncounter [phone] for screening of [id number] weeks gestation of [facility] Less than 8 weeks Jun- Wynn Referring In Womens gestation of 7- Roxie. Provider: Health JACK, pregnancyPersonal 7 700 Rajwinder PO Box history of comp Medical [place]ho, 200 1522, of preg, chldbrth [facility], and the puerp [place], 120, , [place], , [place], [address]. [place], tel: tel: [phone] , [place]. tel: [phone] [facility] Supervision of Wynn Referring In Womens other high risk 3- Roxie. Provider: Health JACK, pregnancies, 7 700 Rajwinder PO Box first Medical [place], 200 1522, trimesterLess [facility], than 8 weeks [place], gestation of 120, , [place], , pregnancyPersonal [place], [address]. [place] history of comp [place], tel: tel: of preg, chldbrth [phone] and the puerp , [place]. 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 Provider: Health JACK, kidney, except 7 700 Rajwinder PO Box renal Medical [place], 200 1522, pelvisHepatomegal [facility], y, not elsewhere [place], classifiedPap 120, , [place], , Smear Screening, [place], [address]. [place] CervixEncounter [place], tel: tel: for surveillance [phone] of contraceptive , [place]. pills tel: [phone] [facility] Anemia, Mar-0 Wynn Referring In Womens unspecifiedTubal Roxie. Provider: Health JACK, preg w/out 7 700 Rajwinder PO Box intrauterine preg Medical [place]ho, 200 1522, [facility], [place], 120, , [place], [id number], [place], [address]. [place], tel: tel: [phone] , [place]. tel: [phone] [facility] Anemia, Mar-0 Wynn In Womens unspecifiedTubal 7-201 Roxie. Health JACK, preg w/out 7 700 PO Box intrauterine preg Medical [address], [place] [address] Rajesh, [place], 120, [id number], [place], [place], tel: [phone] , [place]. tel: [phone] [facility] Tubal preg w/out Feb-2 Wynn Referring In Womens intrauterine 4-201 Roxie. Provider: Bon SANTIAGO, pregTubal preg 7 700 Rajwinder PO Box w/out Medical [place], 200 1522, intrauterine preg [facility] [place], , [place] AND[place]W, 120, , [place], , [place], [address]. [place], tel: tel: [phone] , [place]. tel: [phone] [facility] Tubal preg w/out Feb-1 Wynn In Womens intrauterine preg 9-201 Roxie. Bon SANTIAGO, 7 700 [address], [address], [place], 120, [id number], [place], [place], tel: [phone] , [place]. tel: [phone] [facility] Acute Feb-1 Wynn Referring In Womens posthemorrhagic 7-201 Roxie. Provider: Bon SANTIAGO, anemiaTubal preg 7 700 Rajwinder PO Box w/out Medical [place], 200 1522, intrauterine [facility], pregEncntr for [place], f/u exam aft 120, , [place], , trtmt for cond [place]o, [address]. [facility] [place], tel: tel: [phone] , [place]. tel: [phone] [facility] Acute Feb-1 Wynn Referring In Womens posthemorrhagic 0-201 Roxie. Provider: Bon SANTIAGO, anemiaTubal preg 7 700 Roxie Wynn PO Box w/out Medical K, 700 1522, intrauterine preg [facility] [address] Rajesh, [facility] [place], 120, [place] 120, [id number], [place], [place], [place], tel: [phone]. , [place]. tel: tel: [phone] Jason [place] Sep- [facility] In Womens 0-201 Yue. [facility], 5 700 PO [address] Medical [address], [place] [address] Rajesh, [place], 120, [id number], [place], [place], tel: [phone] , [place]. tel: [phone] Family History Family Member Diagnosis Age At [...] name Insurance type Covered democrat ID Authorization(s) [facility] [id number] [facility] [id number] Social History Type Description Quantity Date Captured Unknown Vital Signs Date / Height Weight BMI Pulse Blood Temperature Respiratory Body Head BMI Time: Rate Pressure Rate Surface Circumference percentile Area Unknown Chief Complaint And Reason For Visit Unknown Chief Complaint And Reason For Visit Reason For Referral Reason For Referral Unknown Plan Of Care Date Type Action Status Appointment ChnyaShantelle de la o BOOKED Appointment ChynaShantelle BOOKED Appointment ChynaShantelle BOOKED Appointment ChynaShantelle de la o BOOKED Appointment ChynaShantelle BOOKED Appointment ChynaShantelle de la o BOOKED Appointment ChynaShantelle de la o BOOKED Appointment ChynaShantelle de la o BOOKED Future Order: Radiology Order Biophysical Profile without NST Ordered ([id number]) Future Order: Radiology Order Ultrasound OB Follow-up ([id number]) Ordered Future Order: Radiology Order Biophysical Profile without NST Ordered ([id number]) Future Order: Radiology Order Ultrasound OB Follow-up ([id number]) Ordered Future Order: Radiology Order Biophysical Profile without NST Ordered ([id number]) Future Order: Radiology Order Complete OB Ultrasound > 14 Ordered Weeks ([id number]) Future Order: Radiology Order Biophysical Profile without NST Ordered ([id number]) Future Order: Radiology Order Biophysical Profile without NST Ordered ([id number]) Future Order: Radiology Order Ultrasound OB Follow-up ([id number]) Ordered Date Type Problem Goal Intervention Status [...]
--- OUTSIDE RECORDS SUMMARY | 2018-02-28 06:08 | External Medical Summary | Continuity of Care Document ---
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 Provider: Bon SANTIAGO, placenta, third 8 700 Rajwinder [address] [email or web address] weeks Medical [place], 200 1522, gestation of [facility], [place]ito [place], 120, , [place], [id number], [place], [address]. [place], tel: tel: [phone] , [place]. tel: [phone] Jason [place] Polyhydramnios, Wynn Referring In Womens Ultrasound third trimester, 7 Roxie. Provider: Bon SANTIAGO, not applicable or 8 700 Rajwinder PO Box unspOther Medical [place], 200 1522, malformation of [facility], placenta, third Lobito [place], trimesterEndo, 120, , [place], [id number], nutritional and [place], [address]. [place] metab diseases [place], tel: tel:[phone] comp preg, third [id number] tri36 weeks , [place]. gestation of tel: [phone] Jason [place] Polyhydramnios, January- Wynn Referring In Womens third trimester, 0-201 Roxie. Provider: Health PA, not applicable or 8 700 Rajwinder PO Box unspEncounter For Medical [place], 200 1522, Center [facility], Screening For Lobito [place], Streptococcus B35 120, , [place], [id number], weeks gestation [place], [address]. [place] of [place], tel: tel:[phone] , [place]. tel: [phone] Jason [place] Supervision of January-1 Wynn Referring In Womens Ultrasound other high risk 0-201 Roxie. Provider: Health PA, pregnancies, 8 700 Rajwinder PO Box third Medical [place], 200 1522, trimesterPolyhydr [facility], amnios, third Lobito [place], trimester, not 120, , [place], [id number], applicable or [place], [address]. [place] unspOther [place], tel: tel: malformation of [phone] placenta, third , [place]. [id number] weeks tel: gestation of [phone] Associates [place] May-0 Wynn In Womens 7-201 Roxie. Health PA, 8 700 PO Box Medical 1522, Center [place], Lobito [place], 120, [id number], [place], [place], tel:[phone] , [place]. tel: [phone] Jason [place] Polyhydramnios, May-0 Wynn Referring In Womens third trimester, 3-201 Roxie. Provider: Health PA, not applicable or 8 700 Rajwinder PO Box unspOther Medical [place], 200 1522, malformation of [facility], placenta, third Lobito [place], [id number] weeks 120, , [place], [id number], gestation of [place], [address]. [place], tel: tel:[phone] , [place]. tel: [phone] Jason [place] Supervision of January-0 Wynn Referring In Womens Ultrasound other high risk 3-201 Roxie. Provider: Health PA, pregnancies, 8 700 Rajwinder PO Box third Medical [place], 200 1522, trimesterPolyhydr [facility], amnios, third Lobito [place], trimester, not 120, , [place], [id number], applicable or [place], [address]. [place] unspOther [place], tel: tel: malformation of [phone] placenta, third , [place]. [email or web address] weeks tel: gestation of [phone] [facility] May-0 Wynn In Womens 1-201 Roxie. Health PA, 8 700 PO [place] [address], [address] Rajesh, [place], 120, [id number], [place], [place], tel: [phone] , [place]. tel: [phone] Associates [facility] Apr-2 Wynn In Womens 7-201 Roxie. Health PA, 8 700 [facility] [address], [address] Rajesh, [place], 120, [id number], [place], [place], tel:+ [phone] , [place]. tel: [phone] Associates [place] Polyhydramnios, Apr-2 Wynn Referring In Womens third trimester, 6-201 Roxei. Provider: Health PA, not applicable or 8 700 Rajwinder PO Box unsp33 weeks Medical [place], 200 1522, gestation of [facility], Lobito [place], 120, , [place], [id number], [place], [address]. [place], tel: tel:[phone] , [place]. tel: [phone] [facility] [place] Supervision of Apr-2 Wynn Referring In Womens Ultrasound other high risk 6-201 Roxie. Provider: Health PA, pregnancies, 8 700 Rajwinder PO Box third Medical [place], 200 1522, trimesterPolyhydr [facility], amnios, third Lobito [place], trimester, not 120, , [place], [id number], applicable or [place], [address]. [place] unspOther [place], tel: tel:[phone] malformation of [phone] placenta, third , [place]. [email or web address] weeks tel: gestation of [phone] Associates [place] Polyhydramnios, Apr- Wynn Referring In Womens third trimester, Roxie. Provider: Health PA, not applicable or 8 700 Rajwinder PO Box unsp32 weeks [facility], 200 1522, gestation of [facility], Dr, L[place] ANDREW, 120, , [place], [id number], [place], [address]. [place], tel: tel: [phone] , [place]. tel: [phone] [facility] [place] Polyhydramnios, Apr- Wynn Referring In Womens Ultrasound third trimester, Roxie. Provider: Health PA, not applicable or 8 700 Rajwinder PO Box unspOther [facility], 200 1522, malformation of [facility], placenta, third DrLobito, trimesterEndo, 120, , [place], [id number], nutritional and [place], [address]. [place] metab diseases [place], tel: tel:[phone] comp preg, third [phone] tri32 weeks , [place]. gestation of tel: [phone] Associates [place] Supervision of [place] Referring In Womens other high risk - [place]. Provider: Health PA, pregnancies, 8 700 Rajwinder PO Box third [facility], 200 1522, trimesterPolyhydr [facility], amnios, third Drive, Singh ANDREW, trimester, not Suite , [place], [id number], applicable or 120, [address]. [place] unspEndoJacobo, tel: tel:[phone] nutritional and [place], [phone] metab diseases [address], comp preg, third [place]. triPersonal tel: history of comp [phone] of preg, chldbrth and the puerp [facility] Polyhydramnios, Apr- Wynn Referring In Womens Ultrasound third trimester, [place]. Provider: Health PA, not applicable or 8 700 Rajwinder PO Box unspOther Medical [place], 200 1522, malformation of [facility], placenta, third Lobito [place], [id number] weeks 120, , [place], [id number], gestation of [place], [address]. [place], tel: tel: [phone] , [place]. tel: [phone] [facility] [place] Polyhydramnios, Apr-0 Wynn Referring In Womens third trimester, 5-201 Roxie. Provider: Health PA, not applicable or 8 700 Rajwinder PO Box unspEndo, Medical [place], 200 1522, nutritional and [facility], metab diseases Lobito [place], comp preg, third 120, , [place], [id number], tri30 weeks [place], [address]. [place] gestation of [place], tel: tel: [phone] , [place]. tel: [phone] Jason [place] Supervision of Apr-0 Wynn Referring In Womens Ultrasound other high risk - Roxie. Provider: Health PA, pregnancies, 8 700 Rajwinder PO Box third Medical [place], 200 1522, trimesterMatern [facility], care for oth or Lobito [place], susp poor fetl 120, , [place], [id number], grth, third tri, [place], [address]. [place] unspOther [place], tel: tel: malformation of [phone] placenta, third , [place]. [id number] weeks tel: gestation of [phone] Associates [place] Supervision of Mar-1 Wynn Referring In Womens other high risk 5-201 Roxie. Provider: Health PA, pregnancies, 8 700 Rajwinder PO Box second Medical [place], 200 1522, trimesterOther [facility], malformation of Lobito [place], placenta, second 120, , [place], [id number], [id number] weeks [place], [address]. [place] gestation of [place], tel: tel:[phone] , [place]. tel: [phone] Jason [place] Supervision of Wynn Referring In Womens other high risk Roxie. Provider: Bon SANTIAGO, pregnancies, 8 700 Rajwinder PO Box second Medical [place], 200 1522, [email or web address] weeks [facility], gestation of Lobito [place], 120, , [place], [id number], [place], [address]. [place], tel: tel:[phone] , [place]. tel: [phone] Jason [place] Other Oct- Wynn Referring In Womens Ultrasound malformation of Roxie. Provider: Bon SANTIAGO, placenta, second 8 700 Rajwinder PO Box trimesterEndo, Medical [place], 200 1522, nutritional and [facility], metab diseases Lobito [place], comp preg, second 120, , [place], [id number], tri23 weeks [place], [address]. [place] gestation of [place], tel: tel:[phone] , [place]. tel: [phone] Jason [place] Wynn In Womens Roxie. Health PA, 8 700 PO Box Medical 1522, [facility], Lobito [place], 120, [id number], [place], [place], tel:+ [phone] , [place]. tel: [phone] Jason [place] Other Wynn Referring In Womens malformation of Roxie. Provider: Bon SANTIAGO, placenta, second 8 700 Rajwinder PO Box trimesterEndo, Medical [place], 200 1522, nutritional and [facility], metab diseases Lobito [place], comp preg, second 120, , [place], [id number], tri19 weeks [place], [address]. [place] gestation of [place], tel: tel:[phone] , [place]. tel: [phone] Jason [place] Matern care for Wynn Referring In Womens Ultrasound oth or susp poor Roxie. Provider: Bon SANTIAGO, jv rust, 2nd 8 700 Rajwinder PO Box tri, unsp19 weeks Medical [place], 200 1522, gestation of [facility], [place], 120, , [place], [id number], [place], [address]. [place], tel: tel: [phone] , [place]. tel: [phone] Jason [place] Matern care for Aug- Wynn Referring In Womens oth or susp poor Roxie. Provider: Bon SANTIAGO, jv rust, 2nd 7 700 Rajwinder PO Box tri, unsp15 weeks Medical [place], 200 1522, gestation of [facility], [place], 120, , [place], [id number], [place], [address]. [place], tel: tel: [phone] , [place]. tel: [phone] Jason [place] Supervision of Wynn Referring In Womens other high risk - Roxie. Provider: Bon SANTIAGO, pregnancies, 7 700 Rajwinder PO Box first Medical [place], 200 1522, trimesterEncntr [facility], screen for [place]ito [place], infections w sexl 120, , [place], , mode of [place], [address]. [place] transmissEncounte [place], tel: tel: r for screening [phone] for oth , [place]. infec/parastc tel: diseasesEncounter [phone] for screening of [id number] weeks gestation of Associates [facility] Less than 8 weeks Jun- Wynn Referring In Womens gestation of - Roxie. Provider: Bon SANTIAGO, pregnancyPersonal 7 700 Rajwinder PO Box history of comp Medical [place], 200 1522, of preg, chldbrth [facility], and the puerp L[place]ito [place], 120, , [place], [id number], [place], [address]. [place], tel: tel: [phone] , [place]. tel: [phone] Associates [place] Supervision of Wynn Referring In Womens other high risk 3- Roxie. Provider: Health JACK, pregnancies, 7 700 Rajwinder PO Box first Medical [place], 200 1522, trimesterLess [facility], than 8 weeks [place], gestation of 120, , [place], , pregnancyPersonal [place], [address]. [place] history of comp [place], tel: tel: of preg, chldbrth [phone] and the puerp , [place]. tel: [phone] [facility] Malignant Roger-2 Wynn Referring In Womens neoplasm of unsp 6- Roxie. Provider: Health JACK, kidney, except 7 700 Rajwinder PO Box renal Medical [place], 200 1522, pelvisHepatomegal [facility], y, not elsewhere [place], classifiedPap 120, , [place], , Smear Screening, [place], [address]. [place] CervixEncounter [place], tel: tel: for surveillance [phone] of contraceptive , [place]. pills tel: [phone] [facility] Anemia, Mar-0 Wynn Referring In Womens unspecifiedTubal 9 Roxie. Provider: Health JACK, preg w/out 7 700 Rajwinder PO Box intrauterine preg Medical [place], 200 1522, Center [facility] Dr Rajesh, [place], 120, , [place], [id number], [place], [address]. [place], tel: tel: [phone] , [place]. tel: [phone] [facility] Anemia, Mar-0 Wynn In Womens unspecifiedTubal 7- Roxie. Health JACK, preg w/out 7 700 PO Box intrauterine preg Medical 1522, [address] Rajesh, [facility], 120, [id number], [place], [place], tel: [phone] , [place]. tel: [phone] Jason [place] Tubal preg w/out Feb-2 Wynn Referring In Womens intrauterine 4-201 Roxie. Provider: Health PA, pregTubal preg 7 700 Rajwinder PO Box w/out Medical [place], 200 1522, intrauterine preg [facility] Dr Rajesh, [place], 120, , [place], [id number], [place], [address]. [place], tel: tel: [phone] , [place]. tel: [phone] Jason [place] Tubal preg w/out Feb-1 Wynn In Womens intrauterine preg 9-201 Roxie. Health JACK, 7 700 PO Box Medical [address], Center Dr Rajesh, [place], 120, , [place], [place], tel: [phone] , [place]. tel: [phone] Jason [place] Acute Feb-1 Wynn Referring In Womens posthemorrhagic 7-201 Roxie. Provider: Health JACK, anemiaTubal preg 7 700 Rajwinder PO Box w/out Medical [place], 200 1522, intrauterine [facility], pregEncntr for Lobito [place], f/u exam aft 120, , [place], , trtmt for emily [place], [address]. [place] oth than [facility] [place], tel: tel: [phone] [phone] , [place]. tel: [phone] Jason [place] Acute Feb-1 Wynn Referring In Womens posthemorrhagic 0-201 Roxie. Provider: Health JACK, anemiaTubal preg 7 700 Roxie Wynn PO Box w/out Medical K, 700 1522, intrauterine preg Center [address], [facility] [place], 120, [place] 120, [id number], [place], [place], [place], tel: [phone]. , [place]. tel: tel: [phone] Jason [place] [facility] In Womens 0-201 Yue. [facility], 5 700 [address] [place] [address], [address] Rajesh, [facility] [place], 120, [id number], [place], [place], tel:-[phone] , [place]. tel: [phone] Family History Family Member Diagnosis Age At [...] Insurance type Covered green party ID Authorization(s) [facility] [id number] [facility] [id number] Social History Type Description Quantity Date Captured [...] o BOOKED Appointment Chyna, Shantelle BOOKED Appointment Chyna, Shantelle BOOKED Appointment ChynaShantelle BOOKED Appointment Chyna, Shantelle BOOKED Appointment ChynaShantelle BOOKED Future Order: Radiology Order Ultrasound OB Follow-up ([id number]) Ordered Future Order: Radiology Order Biophysical Profile without NST Ordered ([id number]) Future Order: Radiology Order Ultrasound OB Follow-up ([id number]) Ordered Future Order: Radiology Order Biophysical Profile without NST Ordered ([id number]) Future Order: Radiology Order Biophysical Profile without NST Ordered ([id number]) Future Order: Radiology Order Complete OB Ultrasound > 14 Ordered Weeks ([id number]) Future Order: Radiology Order Biophysical Profile without NST Ordered ([id number]) Future Order: Radiology Order Biophysical Profile without NST Ordered ([id number]) Future Order: Radiology Order Biophysical Profile without NST Ordered ([id number]) Future Order: Radiology Order Ultrasound OB Follow-up ([id number]) Ordered Date Type Problem Goal Intervention Status [...]
--- OUTSIDE RECORDS SUMMARY | 2018-02-28 06:08 | External Medical Summary | Continuity of Care Document ---
:1985 Author Organization [facility] Address [address] [place], [place] [id number] Phone Care Team Providers Name Role Phone [...] or unsp 32 weeks gestation of - Supervision of other [...] Procedures Procedure Date OB Visit No Charge Apr-19-2018 Results Test Name Date and Time Measure Units Reference Range Abnormal Flag Comments Unknown Advance Directives Directive Yes / No Effective Date File Name Unknown Encounters Encounter Practice Location Reason(s) Diagnoses Date Provider Care Team Description For Visit Members [facility] January-0 [facility] In Womens 7- Roxie. [facility], 8 700 [address] Rajesh, [place], [address], [id number], [place], tel:[phone] , [place]. tel: [phone] [facility] Polyhydramnios, May-0 Wynn Referring In Womens third trimester, 3- Roxie. 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 [place], tel: tel:[phone] , [place]. tel: [phone] Jason [place] Supervision of January-0 Wynn Referring In Womens Ultrasound other high risk - Roxie. Provider: Bon SANTIAGO, pregnancies, 8 700 Rajwinder [address] Box [facility] [place], 200 1522, trimesterPolyhydr [facility], amnios, third [place], trimester, not 120, , [place], , applicable or Jacobo, [address]. [place] unspOther [place], tel: tel:[phone] malformation of [phone] placenta, third , [place]. [id number] weeks tel: gestation of [id number] [facility] Apr-2 [facility] In Womens 7- Roxie. Health JACK, 8 700 [address] Rajesh, [place], [address], [id number], [place], tel:[phone] , [place]. tel: [phone] Jason [place] Polyhydramnios, Apr-2 Wynn Referring In Womens third trimester, 6- Roxie. Provider: Health JACK, not applicable or 8 700 Rajwinder [address] unsp33 weeks Medical [place], 200 1522, gestation of [facility], [place], 120, , [place], , [place], [address]. [place], tel: tel:[phone] , [place]. tel: [phone] Jason [place] Supervision of Apr-2 Wynn Referring In Womens Ultrasound other high risk Roxie. Provider: Health PA, pregnancies, 8 700 Rajwinder PO Box third Medical [place], 200 1522, trimesterPolyhydr [facility], amnios, third [place], trimester, not 120, , [place], , applicable or [place], [address]. [place] unspOther [place], tel: tel:[phone] malformation of [phone] placenta, third , [place]. [id number] weeks tel: gestation of [phone] [facility] Polyhydramnios, Apr-1 Wynn Referring In Womens third trimester, Roxie. Provider: Health PA, not applicable or 8 700 Rajwinder [address] unsp32 weeks Medical [place], 200 1522, gestation of [facility], [place], 120, , [place], , [place], [address]. [place], tel: tel:[phone] , [place]. tel: [phone] Jason [place] Polyhydramnios, Apr-1 Wynn Referring In Womens Ultrasound third trimester, Roxie. Provider: Health PA, not applicable or 8 700 Rajwinder PO Box unspOther Medical [place], 200 1522, malformation of [facility], placenta, third [place], trimesterEndo, 120, , [place], [id number], nutritional and [place], [address]. [place] metab diseases [place], tel: tel:[phone] comp preg, third [phone] tri32 weeks , [place]. gestation of tel: [phone] Jason [place] Supervision of Apr-1 Sobbing Referring In Womens other high risk 2-201 Flash. Provider: Health PA, pregnancies, 8 700 Rajwinder PO Box third Medical [place], 200 1522, trimesterPolyhydr [facility], amnios, third Drive, Singh ANDREW, trimester, not Suite , [place], [id number], applicable or 120, [address]. [place] unspEndo, [place], tel: tel:[phone] nutritional and [place], [phone] metab diseases [address], comp preg, third [place]. triPersonal tel: history of comp [phone] of preg, chldbrth and the puerp [facility] Polyhydramnios, Apr-1 Wynn Referring In Womens Ultrasound third trimester, 2- Roxie. 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 [place], tel: tel: [phone] , [place]. tel: [phone] Jason [place] Polyhydramnios, Apr-0 Wynn Referring In Womens third trimester, 5- Roxie. Provider: Health PA, not applicable or 8 700 Rajwinder PO [facility], 200 1522, nutritional and [facility], metab diseases [place], comp preg, third 120, , [place], [id number], tri30 weeks [place], [address]. [place] gestation of [place], tel: tel: [phone] , [place]. tel: [phone] Jason [place] Supervision of Apr-0 Wynn Referring In Womens Ultrasound other high risk 5- Roxie. Provider: Health PA, pregnancies, 8 700 Rajwinder PO Box third Medical [place], 200 1522, trimesterMatern [facility], care for oth or [place], susp poor fetl 120, , [place], [id number], grth, third tri, [place], [address]. [place] unspOther [place], tel: tel: malformation of [phone] placenta, third , [place]. weeks tel: gestation of [phone] [facility] Supervision of Wynn Referring In Womens other high risk 5-201 Roxie. Provider: Health PA, pregnancies, 8 700 Rajwinder PO Box second Medical [place], 200 1522, trimesterOther [facility], malformation of [place], placenta, second 120, , [place], [id number], [id number] weeks [place], [address]. [place] gestation of [place], tel: tel: [phone] , [place]. tel: [phone] Jason [place] Supervision of Wynn Referring In Womens other high risk 5-201 Roxie. Provider: Health PA, pregnancies, 8 700 Rajwinder PO Box second Medical [place], 200 1522, [id number] weeks [facility], gestation of [place], 120, , [place], [id number], [place], [address]. [place], tel: tel: [phone] , [place]. tel: [phone] Jason [place] Other Wynn Referring In Womens Ultrasound malformation of 5-201 Roxie. Provider: Health JACK, placenta, second 8 700 Rajwinder PO Box trimesterEndo, Medical [place], 200 1522, nutritional and [facility], metab diseases [place], comp preg, second 120, , [place], [id number], tri23 weeks [place], [address]. [place] gestation of [place], tel: tel:[phone] , [place]. tel: [phone] Jason [place] Wynn In Womens 1-201 Roxie. Health JACK, 8 700 [address], [place]esh, [place], 120, [id number], [place], tel: [phone] , [place]. tel: [phone] Jason [place] Other Sep- Wynn Referring In Womens malformation of Roxie. Provider: Bon SANTIAGO, placenta, second 8 700 Rajwinder PO Box trimesterEndo, Medical [place], 200 1522, nutritional and [facility], metab diseases [place], comp preg, second 120, , [place], [id number], tri19 weeks [place], [address]. [place] gestation of [place], tel: tel: [phone] , [place]. tel: [phone] Jason [place] Matern care for Wynn Referring In Womens Ultrasound oth or susp poor - Roxie. Provider: Health JACK, fetl grth, 2nd 8 700 Rajwinder PO Box tri, unsp19 weeks Medical [place], 200 1522, gestation of [facility], [place], 120, , [place], [id number], [place], [address]. [place], tel: tel: [phone] , [place]. tel: [phone] Jason [place] Matern care for Aug- Wynn Referring In Womens oth or susp poor Roxie. Provider: Health JACK, fetl gr, 2nd 7 700 Rajwinder PO Box tri, unsp15 weeks Medical [place], 200 1522, gestation of [facility], [place], 120, , [place], [id number], [place], [address]. [place], tel: tel: [phone] , [place]. tel:[phone] Jason [place] Supervision of Wynn Referring In Womens other high risk - Roxie. Provider: Health PA, pregnancies, 7 700 Rajwinder PO Box first Medical [place], 200 1522, trimesterEncntr [facility], screen for [place], infections w sexl 120, , [place], , mode of [place], [address]. [place] transmissEncounte [place], tel: tel:[phone] r for screening [phone] for oth , [place]. infec/parastc tel: [facility] [phone] for screening of [id number] weeks gestation of [facility] Less than 8 weeks Jun- Wynn Referring In Womens gestation of 7-201 Roxie. Provider: Health PA, pregnancyPersonal 7 700 Rajwinder PO Box history of comp Medical [place], 200 1522, of preg, chldbrth [facility], and the puerp [place], 120, , [place], , [place], [address]. [place], tel: tel:[phone] , [place]. tel: [phone] [facility] Supervision of Wynn Referring In Womens other high risk 3-201 Roxie. Provider: Health PA, pregnancies, 7 700 Rajwinder PO Box first Medical [place], 200 1522, trimesterLess [facility], than 8 weeks [place], gestation of 120, , [place], , pregnancyPersonal [place], [address]. [place] history of comp [place], tel: tel:[phone] of preg, chldbrth [phone] and the puerp , [place]. tel: [phone] [facility] Malignant Roger-2 Wynn Referring In Womens neoplasm of unsp 6-201 Roxie. Provider: Health PA, kidney, except 7 700 Rajwinder PO Box renal Medical [place], 200 1522, pelvisHepatomegal [facility], y, not elsewhere [place], classifiedPap 120, , [place], , Smear Screening, [place], [address]. [place] CervixEncounter [place], tel: tel:[phone] for surveillance [phone] of contraceptive , [place]. pills tel: [phone] [facility] Anemia, Mar-0 Wynn Referring In Womens unspecifiedTubal - Roxie. Provider: Health JACK, preg w/out 7 700 Rajwinder PO Box intrauterine preg Medical [place], 200 15[address], [address], [place], 120, , [place], [id number], [place], [address]. [place], tel: tel:[phone] , [place]. tel: [phone] [facility] Anemia, Mar-0 Wynn In Womens unspecifiedTubal - Roxie. Health JACK, preg w/out 7 700 PO Box intrauterine preg Medical [address], [address], [place], [address], [id number], [place], [place], tel:+ [phone] , [place]. tel: [phone] [facility] Tubal preg w/out Feb-2 Wynn Referring In Womens intrauterine - Roxie. Provider: Bon SANTIAGO, pregTubal preg 7 700 Rajwinder PO Box w/out [facility] [place], 200 1522, [facility], [place], 120, , [place], [id number], [place], [address]. [place], tel: tel:[phone] , [place]. tel: [phone] [facility] Tubal preg w/out Feb-1 Wynn In Womens intrauterine preg - Roxie. Health JACK, 7 700 [address], [address], [facility] [place], 120, [id number], [place], [place], tel:[phone] , [place]. tel: [phone] [facility] Acute Feb-1 Wynn Referring In Womens posthemorrhagic - Roxie. Provider: Bon SANTIAGO, anemiaTubal preg 7 700 Rajwinder PO Box w/out [facility] [place], 200 1522, intrauterine [facility] Rajesh, pregEncntr for [place], f/u exam aft 120, , [place], [id number], trtmt for emily [place], [address]. [place] oth than [place], tel: tel: [phone] , [place]. tel: [phone] [facility] Acute Oct- Wynn Referring In Womens posthemorrhagic 0-201 Roxie. Provider: Health JACK, anemiaTubal preg 7 700 Roxie Wynn PO Box w/out Medical [place], 700 1522, intrauterine preg [facility] Dr Rajesh, [facility] [place], 120, [place] 120, [id number], Jacobo [place], [place], [place], tel: [phone]. , [place]. tel: tel: [phone] [facility] Sly-3 [place] In Womens 0-201 Yue. Health JACK, 5 700 [address], [address] Rajesh, [facility] [place], 120, [id number], [place], [place], tel: [phone] , [place]. tel: [phone] Family History Family Member Diagnosis Age At [...] Insurance type Covered constitution party ID Authorization(s) [facility] [id number] [facility] [id number] Social History Type Description Quantity Date Captured Alcohol Use Details No Caffeine Use Details Unknown Tobacco Use Status Unknown Smoking Status Never smoker Vital Signs Date / Height Weight BMI Pulse Blood Temperature Respiratory Body Head BMI Time: Rate Pressure Rate Surface Circumference percentile Area 171.40 29.4 113/68 -2018 lbs 2 mm[Hg] 11:56 kg/m AM eter (2) Chief Complaint And [...] Future Order: Radiology Order Ultrasound OB Follow-up ([id number]) Ordered Future Order: Radiology Order Biophysical Profile without NST Ordered ([id number]) Future Order: Radiology Order Ultrasound OB Follow-up ([id number]) Ordered Future Order: Radiology Order Biophysical Profile without NST Ordered ([id number]) Future Order: Radiology Order Complete OB Ultrasound > 14 Ordered Weeks ([id number]) Future Order: Radiology Order Biophysical Profile without NST Ordered ([id number]) Future Order: Radiology Order Biophysical Profile without NST Ordered ([id number]) Future Order: Radiology Order Ultrasound OB Follow-up ([id number]) Ordered Date Type Problem Goal Intervention Status [...]
--- OUTSIDE RECORDS SUMMARY | 2018-02-28 06:08 | External Medical Summary | Continuity of Care Document ---
:1985 Author Organization [facility] Address [address] [employer], [place] [id number] Phone Care Team Providers Name Role Phone [...] Wynn Referring In Womens malformation of 7 Rxoie. Provider: Bon SANTIAGO, placenta, third 8 700 Rajwinder [address] [email or web address] weeks Medical [place], 200 1522, gestation of [facility], [place]ito [place], 120, , [place], [id number], [place], [address]. [place], tel: tel: [phone] , [place]. tel: [phone] Jason [place] Polyhydramnios, Wynn Referring In Womens Ultrasound third trimester, 7 Roxie. Provider: Bon SANTIAGO, not applicable or 8 700 Rajwinder PO Box unspOther Medical [place], 200 1522, malformation of [facility], placenta, third Lobito [place], trimesterEndo, 120, , [place], [id number], nutritional and [place], [address]. [place] metab diseases [place], tel: tel:[phone] comp preg, third [phone] [id number] [phone] tri36 weeks , [place]. gestation of tel: [phone] Jason [place] Polyhydramnios, January- Wynn Referring In Womens third trimester, 0-201 Roxie. Provider: Health PA, not applicable or 8 700 Rajwinder PO Box unspEncounter For Medical [place], 200 1522, [facility], Screening For Lobito [place], Streptococcus B35 120, , [place], [id number], weeks gestation [place], [address]. [place] of [place], tel: tel:[phone] , [place]. tel: [phone] Jason Cent[place] Supervision of January-1 Wynn Referring In Womens Ultrasound other high risk 0-201 Roxie. Provider: Health PA, pregnancies, 8 700 Rajwinder PO Box third Medical [place], 200 1522, trimesterPolyhydr [facility], amnios, third [place]obito [place], trimester, not 120, , [place], [id number], applicable or [place], [address]. [place] unspOther [place], tel: tel: malformation of [phone] placenta, third , [place]. [id number] weeks tel: gestation of [phone] [facility] May-0 Wynn In Womens 7-201 Roxie. Health PA, 8 700 PO Box Medical 1522, Center [place], [place], 120, [id number], [place], [place], tel:[phone] , [place]. tel: [phone] Jason [place] Polyhydramnios, May-0 Wynn Referring In Womens third trimester, 3-201 Roxie. Provider: Health PA, not applicable or 8 700 Rajwinder PO Box unspOther Medical [place], 200 1522, malformation of [facility], placenta, third [place], [email or web address] weeks 120, , [place], [id number], gestation of [place], [address]. [place], tel: tel:[phone] , [place]. tel: [phone] Jason [place] Supervision of January-0 Wynn Referring In Womens Ultrasound other high risk 3-201 Roxie. Provider: Health PA, pregnancies, 8 700 Rajwinder PO Box third Medical [place], 200 1522, trimesterPolyhydr [facility], amnios, third [place], trimester, not 120, , [place], [id number], applicable or [place], [address]. [place] unspOther [place], tel: tel:[phone] malformation of [phone] [phone] placenta, third , [place]. [id number] weeks tel: gestation of [phone] [facility] Apr-2 Wynn In Womens 7-201 Roxie. Health PA, [address] [facility] 15[address], [facility], [place], 120, [id number], [place], [place], tel: [phone] , [place]. tel:[phone] [facility] Polyhydramnios, Apr-2 Wynn Referring In Womens third trimester, 6- Roxie. Provider: Health PA, not applicable or 8 700 Rajwinder PO Box unsp33 weeks [facility], 200 1522, gestation of [facility], [place], 120, , [place], [id number], [place], [address]. [place], tel: tel:[phone] , [place]. tel:[phone] [facility] Supervision of Apr-2 Wynn Referring In Womens Ultrasound other high risk 6- Roxie. Provider: Health PA, pregnancies, 8 700 Rajwinder PO Box [facility], 200 1522, trimesterPolyhydr [facility], amnios, third [place]ito [place], trimester, not 120, , [place], [id number], applicable or [place], [address]. [place] unspOther [place], tel: tel:[phone] malformation of [phone] [phone] placenta, third , [place]. [id number] weeks tel:+10-30 gestation of [phone] [facility] Polyhydramnios, Apr-1 Wynn Referring In Womens third trimester, 9- Roxie. Provider: Health PA, not applicable or 8 700 Rajwinder PO Box unsp32 weeks Medical [place], 200 1522, gestation of [facility] [address], [place], DrLobito, 120, , [place], [id number], [place], [address]. [place], tel: tel: [phone] , [place]. tel: [phone] [facility] Polyhydramnios, Apr- Wynn Referring In Womens Ultrasound third trimester, Roxie. Provider: Health PA, not applicable or 8 700 Rajwinder PO Box [facility] Medical [place], 200 1522, malformation of [facility] [address], [place], placenta, third L[place]ito [place], trimesterEndo, 120, , [place], [id number], nutritional and [place], [address]. [place] metab diseases [place], tel: tel: comp preg, third [phone] tri32 weeks , [place]. gestation of tel: [phone] [facility] Supervision of [place] Referring In Womens other high risk [place]. Provider: Health PA, pregnancies, 8 700 Rajwinder PO Box third Medical [place], 200 1522, trimesterPolyhydr [facility] , [place], amnios, third Drive, Singh ANDREW, trimester, not Suite , [place], [id number], applicable or 120, [address]. [place] unspEndo, [place], tel: tel: nutritional and [place], [phone] metab diseases [address], comp preg, third [place]. triPersonal tel: history of comp [phone] of preg, chldbrth and the puerp [facility] Polyhydramnios, Apr-1 Wynn Referring In Womens Ultrasound third trimester, - Roxie. Provider: Health PA, not applicable or 8 700 Rajwinder PO Box [facility] Medical [place], 200 1522, malformation of [facility] [address], [place], placenta, third [place], [id number] weeks 120, , [place], [id number], gestation of [place], [address]. [place], tel: tel: [phone] , [place]. tel: [phone] Jason [place] Polyhydramnios, Apr-0 Wynn Referring In Womens third trimester, 5-201 Roxie. Provider: Health PA, not applicable or 8 700 Rajwinder PO Box unspEndo, Medical [place], 200 1522, nutritional and [facility], metab diseases [place], comp preg, third 120, , [place], [id number], tri30 weeks [place], [address]. [place] gestation of [place], tel: tel:[phone] , [place]. tel: [phone] Jason [place] Supervision of Apr-0 Wynn Referring In Womens Ultrasound other high risk 5-201 Roxie. Provider: Health PA, pregnancies, 8 700 Rajwinder PO Box third Medical [place], 200 1522, trimesterMatern [facility], care for oth or L[place]ito [place], susp poor fetl 120, , [place], [id number], grth, third tri, [place], [address]. [place] unspOther [place], tel: tel: malformation of [phone] placenta, third , [place]. [id number] weeks tel: gestation of [phone] [facility] Supervision of Nov- Wynn Referring In Womens other high risk 5-201 Roxie. Provider: Health PA, pregnancies, 8 700 Rajwinder PO Box second Medical [place], 200 1522, trimesterOther [facility], malformation of [place], placenta, second 120, , [place], [id number], [id number] weeks [place], [address]. [place] gestation of [place], tel: tel:[phone] , [place]. tel: [phone] Jason [place] Supervision of Oct- Wynn Referring In Womens other high risk 5-201 Roxie. Provider: Health JACK, pregnancies, 8 700 Rajwinder PO Box second Medical [place], 200 1522, [id number] weeks [facility], gestation of Lboito [place], 120, , [place], [id number], [place], [address]. [place], tel: tel: [phone] , [place]. tel: [phone] Jason [place] Other Oct- Wynn Referring In Womens Ultrasound malformation of - Roxie. Provider: Bon SANTIAGO, placenta, second 8 700 Rajwinder PO Box trimesterEndo, Medical [place], 200 1522, nutritional and [facility], metab diseases [place], comp preg, second 120, , [place], [id number], tri23 weeks [place], [address]. [place] gestation of [place], tel: tel:[phone] , [place]. tel: [phone] Jason [place] Sep- Wynn In Womens Roxie. Bon SANTIAGO, 8 700 PO Box Medical 1522, [facility], [place], 120, [id number], [place], [place], tel: [phone] , [place]. tel: [phone] Jason [place] Other Sep- Wynn Referring In Womens malformation of Roxie. Provider: Bon SANTIAGO, placenta, second 8 700 Rajwinder PO Box trimesterEndo, Medical [place], 200 1522, nutritional and [facility], metab diseases [place], comp preg, second 120, , [place], [id number], tri19 weeks [place], [address]. [place] gestation of [place], tel: tel:[phone] , [place]. tel: [phone] Jason [place] Matern care for Wynn Referring In Womens Ultrasound oth or susp poor - Roxie. Provider: Bon SANTIAGO fetl grth, 2nd 8 700 Rajwinder PO Box tri, unsp19 weeks Medical [place], 200 1522, gestation of [facility], [place], 120, , [place], [id number], [place], [address]. [place], tel: tel:+ [phone] , [place]. tel: [phone] Jason [place] Matern care for Aug- Wynn Referring In Womens oth or susp poor 9-201 Roxie. Provider: Bon SANTIAGO, fetl grth, 2nd 7 700 Rajwinder PO Box tri, unsp15 weeks Medical [place], 200 1522, gestation of [facility], [place], 120, , [place], [id number], [place], [address]. [place], tel: tel:[phone] , [place]. tel: [phone] Jason Cent[place] Supervision of Jul- Wynn Referring In Womens other high risk 1-201 Roxie. Provider: Bon SANTIAGO, pregnancies, 7 700 Rajwinder PO Box first Medical [place], 200 1522, trimesterEncntr [facility], screen for [place], infections w sexl 120, , [place], , mode of [place], [address]. [place] transmissEncounte [place], tel: tel:[phone] r for screening [phone] for oth , [place]. infec/parastc tel: diseasesEncounter [phone] for screening of [id number] weeks gestation of [facility] Less than 8 weeks Jun- Wynn Referring In Womens gestation of 7-201 Roxie. Provider: Bon SANTIAGO, pregnancyPersonal 7 700 Rajwinder PO Box history of comp Medical [place], 200 1522, of preg, chldbrth [facility], and the puerp [place], 120, , [place], [id number], [place], [address]. [place], tel: tel:[phone] , [place]. tel: [phone] Jason [place] Supervision of Wynn Referring In Womens other high risk 3-201 Roxie. Provider: Bon SANTIAGO, pregnancies, 7 700 Rajwinder PO Box first Medical [place], 200 1522, trimesterLess [facility] [place], [place], than 8 weeks [place], gestation of 120, , [place], , pregnancyPersonal [place], [address]. [place] history of comp [place], tel: tel: of preg, chldbrth [phone] and the puerp , [place]. tel: [phone] [facility] Malignant Roger-2 Wynn Referring In Womens neoplasm of unsp 6-201 Roxie. Provider: Health PA, kidney, except 7 700 Rajwinder PO Box renal Medical [place], 200 1522, pelvisHepatomegal [facility], y, not elsewhere [place], classifiedPap 120, , [place], , Smear Screening, [place], [address]. [place] CervixEncounter [place], tel: tel: for surveillance [phone] of contraceptive , [place]. pills tel: [phone] [facility] Anemia, Mar-0 Wynn Referring In Womens unspecifiedTubal 9-201 Roxie. Provider: Health JACK, preg w/out 7 700 Rajwinder PO Box intrauterine preg Medical [place], 200 15[address], [facility] [place], 120, , [place], [id number], [place], [address]. [place], tel: tel: [phone] , [place]. tel: [phone] [facility] Anemia, Mar-0 Wynn In Womens unspecifiedTubal 7-201 Roxie. Health PA, preg w/out 7 700 PO Box intrauterine preg Medical 1522, [place] [address] Rajesh, [place], 120, [id number], [place], [place], tel: [phone] , [place]. tel: [phone] [facility] Tubal preg w/out Fe-2 Wynn Referring In Womens intrauterine 4-201 Roxie. Provider: Health PA, pregTubal preg 7 700 Rajwinder PO Box w/out Medical [place], 200 1522, [facility], [place], 120, , [place], , [place], [address]. [place], tel: tel: [phone] , [place]. tel: [phone] [facility] Tubal preg w/out Feb-1 Wynn In Womens intrauterine preg 9-201 Roxie. Health PA, 7 700 PO Box Medical [address], [address] Rajesh, [place], 120, [id number], [place], [place], tel: [phone] , [place]. tel: [phone] [facility] Acute Feb-1 Wynn Referring In Womens posthemorrhagic 7-201 Roxie. Provider: Bon SANTIAGO, anemiaTubal preg 7 700 Rajwinder PO Box w/out Medical [place], 200 1522, intrauterine [facility], pregEncntr for [place], f/u exam aft 120, , [place], , trtmt for cond [place], [address]. [place] oth than mal [place], tel: tel: [phone] [phone] , [place]. tel: [phone] [facility] Acute Feb-1 Wynn Referring In Womens posthemorrhagic 0-201 Roxie. Provider: Bon SANTIAGO, anemiaTubal preg 7 700 Roxie Wynn PO Box w/out Medical K, 700 1522, intrauterine preg [facility] Dr Rajesh, [facility] [place], 120, [place] 120, [id number], [place], [place], [place], tel: [phone]. , [place]. tel: tel: [phone] [facility] Sep- Esperanza In Womens 0-201 Yue. Health PA, 5 700 PO Box Medical [address], [address], [place], 120, [id number], [place], [place], tel: [phone] , [place]. tel: [phone] Family History Family Member Diagnosis Age At [...] Insurance type Covered alliance party ID Authorization(s) [facility] [id number] [facility] [id number] Social History Type Description Quantity Date Captured Unknown Vital Signs Date / Height Weight BMI Pulse Blood Temperature Respiratory Body Head BMI Time: Rate Pressure Rate Surface Circumference percentile Area Unknown Chief Complaint And Reason For Visit Unknown Chief Complaint And Reason For Visit Reason For Referral Reason For Referral Unknown Plan Of Care Date Type Action Status Appointment ChynaShantelle BOOKED Appointment Chyna, Shantelle BOOKED Appointment Chyna, Shantelle BOOKED Appointment Chyna, Shantelle BOOKED Appointment Chyna, Shantelle BOOKED Appointment Chyna, Shantelle BOOKED Future Order: Radiology Order Ultrasound OB Follow-up ([id number]) Ordered Future Order: Radiology Order Biophysical Profile without NST Ordered ([id number]) Future Order: Radiology Order Ultrasound OB Follow-up ([id number]) Ordered Future Order: Radiology Order Biophysical Profile without NST Ordered ([id number]) Future Order: Radiology Order Biophysical Profile without NST Ordered ([id number]) Future Order: Radiology Order Complete OB Ultrasound > 14 Ordered Weeks ([id number]) Future Order: Radiology Order Biophysical Profile without NST Ordered ([id number]) Future Order: Radiology Order Biophysical Profile without NST Ordered ([id number]) Future Order: Radiology Order Biophysical Profile without NST Ordered ([id number]) Future Order: Radiology Order Ultrasound OB Follow-up ([id number]) Ordered Date Type Problem Goal Intervention Status [...]
[2018-02-28] MEDS ORDERED: OXYTOCIN DRIP 30 UNIT/500 ML ML IV PRN (06:09)
--- OUTSIDE RECORDS SUMMARY | 2018-02-28 06:09 | External Medical Summary | Continuity of Care Document ---
:1985 Author Organization [facility] [employer] [facility] Address [address] [place], [place] [id number] Phone Care Team Providers Name Role Phone [...] third tri 30 weeks gestation of - Supervision of [...] Personal history of comp of preg, - [facility] the er Supervision of other high risk - pregnancies, [...] Personal history of comp of preg, - [facility] Supervision of other high risk - pregnancies, [...] the puerp Depression Active Procedures Procedure Date Immuniz admnin, 1 vac, sngl/combo 19 Yrs + TDAP VACCINE >7 IM OB Visit No Charge Assay thyroid stimulating hormone Venpnctr fngr/heel/ear stick routne Results Test Name Date and Time Measure Units Reference Range Abnormal Flag Comments Unknown Advance Directives Directive Yes / No Effective Date File Name Unknown Encounters Encounter Practice Location Reason(s) Diagnoses Date Provider Care Team Description For Visit Members [facility] Supervision of Wynn Referring In Womens Ultrasound other high risk - Roxie. Provider: Bon SANTIAGO, pregnancies, 8 700 Rajwinder PO Box [facility], 200 1522, trimesterPolyhydr [place] [facility], amnios, third Lobito [place], trimester, not 120, , KAMRAN, [id number], applicable or Jacobo, [address]. [place] unspOther KAMRAN, tel:+[phone] tel:+-[phone] malformation of [id number] placenta, third , [place]. [id number] weeks tel:+31 gestation of [id number] [facility] Polyhydramnios, Dec- Wynn Referring In Womens third trimester, Roxie. Provider: Bon SANTIAGO, not applicable or 8 700 Rajwinder [address] unsp32 weeks Medical [place], 200 1522, gestation of [address], [place], DrLobito, 120, , [place], [id number], [place], [address]. [place], tel: tel: [phone] , [place]. tel: [phone] [facility] Polyhydramnios, Apr-1 Wynn Referring In Womens Ultrasound third trimester, Roxie. Provider: Health PA, not applicable or 8 700 Rajwinder PO Box unspOther Medical [place], 200 1522, malformation of [address], [place], placenta, third Lobito [place], trimesterEndo, 120, , [place], [id number], nutritional and [place], [address]. [place] metab diseases [place], tel: tel: comp preg, third [phone] tri32 weeks , [place]. gestation of tel: [phone] [facility] Supervision of [place] Referring In Womens other high risk [place]. Provider: Health PA, pregnancies, 8 700 Rajwinder PO Box third Medical [place], 200 1522, trimesterPolyhydr [facility] , [place], amnios, third Drive, Singh ANDREW, trimester, not Suite , [place], [id number], applicable or 120, [address]. [place] unspEndo, Jacobo, tel: tel: nutritional and [place], [phone] metab diseases [address], comp preg, third [place]. triPersonal tel: history of comp [id number] of preg, chldbrth and the puerp [facility] Polyhydramnios, Apr-1 Wynn Referring In Womens Ultrasound third trimester, 2- Roxie. Provider: Health PA, not applicable or 8 700 Rajwinder [facility] [place], 200 1522, malformation of [address], [place], placenta, third Lobito [place], [id number] weeks 120, , [place], [id number], gestation of [place], [address]. [place], tel: tel: [phone] , [place]. tel: [phone] [facility] Polyhydramnios, Apr-0 Wynn Referring In Womens third trimester, 5-201 Roxie. Provider: Health PA, not applicable or 8 700 Rajwinder PO Box unspEndo, Medical [place], 200 1522, nutritional and [facility], metab diseases Lobito [place], comp preg, third 120, , [place], [id number], tri30 weeks [place], [address]. [place] gestation of [place], tel: tel: [phone] , [place]. tel: [phone] Jason [place] Supervision of Apr-0 Wynn Referring In Womens Ultrasound other high risk 5-201 Roxie. Provider: Health PA, pregnancies, 8 700 Rajwinder PO Box third Medical [place], 200 1522, trimesterMatern [facility], care for oth or Lobito [place], susp poor fetl 120, , [place], [id number], grth, third tri, [place], [address]. [place] unspOther [place], tel: tel: malformation of [phone] 080758 placenta, third , [place]. [id number] weeks tel: gestation of [phone] [facility] Supervision of Nov- Wynn Referring In Womens other high risk 5-201 Roxie. Provider: Health PA, pregnancies, 8 700 Rajwinder PO Box second Medical [place], 200 1522, trimesterOther [facility], malformation of Lobito [place], placenta, second 120, , [place], [address], [id number] weeks [place], [address]. [place] gestation of [place], tel: tel:[phone] , [place]. tel: [phone] Jason [place] Supervision of Oct- Wynn Referring In Womens other high risk 5-201 Roxie. Provider: Health JACK, pregnancies, 8 700 Rajwinder PO Box second Medical [place], 200 1522, [id number] weeks [facility], gestation of Lobito [place], 120, , [place], [id number], [place], [address]. [place], tel: tel: [phone] , [place]. tel: [phone] Jason [place] Other Oct- Wynn Referring In Womens Ultrasound malformation of Roxie. Provider: Bon SANTIAGO, placenta, second 8 700 Rajwinder PO Box trimesterEndo, Medical [place], 200 1522, nutritional and [facility], metab diseases Lobito [place], comp preg, second 120, , [place], [id number], tri23 weeks [place], [address]. [place] gestation of [place], tel: tel:[phone] , [place]. tel: [phone] Jason [place] Sep- Wynn In Womens Roxie. Bon SANTIAGO, 8 700 PO Box Medical [address]22, [place], Lobito [place]ster, 120, [id number], [place], [place], tel:+ [phone] , [place]. tel: [phone] Jason [place] Other Wynn Referring In Womens malformation of Roxie. Provider: Bon SANTIAGO, placenta, second 8 700 Rajwinder PO Box trimesterEndo, Medical [place], 200 1522, nutritional and [facility], metab diseases Lobito [place], comp preg, second 120, , [place], [id number], tri19 weeks [place], [address]. [place] gestation of [place], tel: tel:[phone] , [place]. tel: [phone] Jason [place] Matern care for Wynn Referring In Womens Ultrasound oth or susp poor Roxie. Provider: Bon SANTIAGO fetl grth, 2nd 8 700 Rajwinder PO Box tri, unsp19 weeks Medical [place], 200 1522, gestation of [facility], Lobito [place], 120, , [place], [id number], [place], [address]. [place], tel: tel:+ [phone] , [place]. tel: [phone] Jason [place] Matern care for Aug- Wynn Referring In Womens oth or susp poor 9-201 Roxie. Provider: Bon SANTIAGO, fetl grth, 2nd 7 700 Rajwinder PO Box tri, unsp15 weeks Medical [place], 200 1522, gestation of [facility], Lobito [place], 120, , [place], [id number], [place], [address]. [place], tel: tel:[phone] , [place]. tel: [phone] Jason [place] Supervision of Jul- Wynn Referring In Womens other high risk 1-201 Roxie. Provider: Bon SANTIAGO, pregnancies, 7 700 Rajwinder PO Box first Medical [place], 200 1522, trimesterEncntr [facility], screen for Lobito [place], infections w sexl 120, , [place], , mode of [place], [address]. [place] transmissEncounte [place], tel: tel:[phone] r for screening [phone] for oth , [place]. infec/parastc tel: diseasesEncounter [phone] for screening of [id number] weeks gestation of [facility] Less than 8 weeks Jun- Wynn Referring In Womens gestation of 7-201 Roxie. Provider: Bon SANTIAGO, pregnancyPersonal 7 700 Rajwinder PO Box history of comp Medical [place], 200 1522, of preg, chldbrth [facility], and the puerp Lobito [place], 120, , [place], [id number], [place], [address]. [place], tel: tel:[phone] , [place]. tel: [phone] Jason [place] Supervision of Jun- Wynn Referring In Womens other high risk 3-201 Roxie. Provider: Bon SANTIAGO, pregnancies, 7 700 Rajwinder PO Box first Medical [place], 200 1522, trimesterLess Center [facility], [place], than 8 weeks Lobito [place], gestation of 120, , [place], , pregnancyPersonal [place], [address]. [place] history of comp [place], tel: tel: of preg, chldbrth [phone] and the puerp , [place]. tel: [phone] [facility] Malignant Roger-2 Wynn Referring In Womens neoplasm of unsp 6-201 Roxie. Provider: Health PA, kidney, except 7 700 Rajwinder PO Box renal Medical [place], 200 1522, pelvisHepatomegal [facility], y, not elsewhere Lobito [place], classifiedPap 120, , [place], , Smear Screening, [place], [address]. [place] CervixEncounter [place], tel: tel:[phone] for surveillance [phone] of contraceptive , [place]. pills tel: [phone] [facility] Anemia, Mar-0 Wynn Referring In Womens unspecifiedTubal 9-201 Roxie. Provider: Health PA, preg w/out 7 700 Rajwinder PO Box intrauterine preg Medical [place], 200 1522, [facility], [place], 120, , [place], [id number], [place], [address]. [place], tel: tel: [phone] , [place]. tel: [phone] [facility] Anemia, Mar-0 Wynn In Womens unspecifiedTubal 7-201 Roxie. Health PA, preg w/out 7 700 PO Box intrauterine preg Medical 1522, [place] [address] Rajesh, Lobito ANDREW, 120, [id number], [place], [place], tel: [phone] , [place]. tel: [phone] [facility] Tubal preg w/out Feb-2 Wynn Referring In Womens intrauterine 4-201 Roxie. Provider: Health PA, pregTubal preg 7 700 Rajwinder PO Box w/out Medical [place], 200 1522, intrauterine preg [facility] [place], [place], 120, , [place], , [place], [address]. [place], tel: tel: [phone] , [place]. tel: [phone] [facility] Tubal preg w/out Feb-1 Wynn In Womens intrauterine preg 9-201 Roxie. Health JACK, 7 700 PO Box Medical [address], [address], [facility] [place], 120, [id number], [place], [place], tel: [phone] , [place]. tel: [phone] [facility] Acute Feb-1 Wynn Referring In Womens posthemorrhagic 7-201 Roxie. Provider: Bon SANTIAGO, anemiaTubal preg 7 700 Rajwinder PO Box w/out Medical [place], 200 1522, intrauterine [facility], pregEncntr for Lobito Winche[place], f/u exam aft 120, , [place], , trtmt for cond Jacobo, [address]. [place] oth [facility] [place], tel: tel: neoplm [phone] , [place]. tel: [phone] [facility] Acute Feb-1 Wynn Referring In Womens posthemorrhagic 0-201 Roxie. Provider: Bon SANTIAGO, anemiaTubal preg 7 700 Roxie Wynn PO Box w/out Medical K, 700 1522, intrauterine preg [place] [address], [facility] [place], 120, Lobito 120, [id number], Jacobo [place], [place], [place], tel: [phone]. , [place]. tel: tel: [phone] [facility] Sep- Esperanza In Womens 0-201 Yue. Health JACK, 5 700 PO Box Medical 1522, [address], [place], 120, [id number], [place], [place], tel: [phone] , [place]. tel: [phone] Family History Family Member Diagnosis Age At [...] older Payers Payer name Insurance type Covered libertarian ID Authorization(s) [facility] [id number] [facility] [id number] Social History Type Description Quantity Date Captured Alcohol Use Details No Caffeine Use Details Unknown Tobacco Use Status Unknown Smoking Status Never smoker Vital Signs Date / Height Weight BMI Pulse Blood Temperature Respiratory Body Head BMI Time: Rate Pressure Rate Surface Circumference percentile Area 169.20 29.0 105/ lbs 4 mm[Hg] 11:29 kg/m AM eter (2) Chief Complaint And [...] Future Order: Radiology Order Ultrasound OB Follow-up ([id number]) Ordered Future Order: Radiology Order Biophysical Profile without NST Ordered ([id number]) Future Order: Radiology Order Complete OB Ultrasound > 14 Ordered Weeks ([id number]) Future Order: Radiology Order Biophysical Profile without NST Ordered ([id number]) Future Order: Radiology Order Biophysical Profile without NST Ordered ([id number]) Future Order: Radiology Order Ultrasound OB Follow-up ([id number]) Ordered Date Type Problem Goal Intervention Status [...]
--- OUTSIDE RECORDS SUMMARY | 2018-02-28 06:09 | External Medical Summary | Continuity of Care Document ---
:1985 Author Organization [facility] [email or web address] [facility] Address [address] [place], [place] [id number] Phone Care Team Providers Name Role Phone [...] Personal [facility], [facility] Supervision of [...] comp of preg, - [facility] and the puerp Supervision of other high [...] the puerp Depression Active Procedures Procedure Date Ultrasnd preg uterus, flwup/repeat Results Test Name Date and Time Measure [...] third Medical [place], 200 1522, trimesterPolyhydr [facility], amnios, third Lobito [place], trimester, not 120, , [place], , applicable or Jacobo, [address]. [place] unspOther [place], tel: tel:+2 malformation of [phone] placenta, third , [place]. [id number] weeks tel:+31 gestation of [phone] [facility] Polyhydramnios, Dec- Wynn Referring In Womens third trimester, Roxie. Provider: Health PA, not applicable or 8 700 Rajwinder PO Box unsp32 weeks Medical [place], 200 1522, gestation of [facility], Lobito [place], 120, , [place], [address], [place], [address]. [place], tel: tel: [phone] , [place]. tel: [phone] [facility] Polyhydramnios, Apr-1 Wynn Referring In Womens Ultrasound third trimester, 9- Roixe. Provider: Health PA, not applicable or 8 700 Rajwinder PO Box [facility] Medical [place], 200 1522, malformation of [address], [place], placenta, third Lobito Winchester, trimesterEndo, 120, , [place], [id number], nutritional and [place], [address]. [place] metab diseases [place], tel: tel:+[phone] comp preg, third [phone] 160279 tri32 weeks , [place]. gestation of tel: [phone] [facility] Supervision of Apr-1 [place] Referring In Womens other high risk 2- Flash. Provider: Health PA, pregnancies, 8 700 Rajwinder PO Box [facility], 200 1522, trimesterPolyhydr [address], [place], amnios, third Drive, Singh ANDREW, trimester, not Suite , [place], [id number], applicable or 120, [address]. [place] unspEndo, Jacobo, tel: tel:316 nutritional and [place], [id number] 160486 metab diseases [address], comp preg, third [place]. triPersonal tel: history of comp [phone] of preg, chldbrth and the puerp [facility] Polyhydramnios, Apr-1 Wynn Referring In Womens Ultrasound third trimester, - Roxie. Provider: Health PA, not applicable or 8 700 Rajwinder PO Box [facility] Medical [place], 200 1522, malformation of [address], [place], placenta, third Lobito [place], [id number] weeks 120, , [place], [address], gestation of [place], [address]. [place], tel: tel:[phone] , [place]. tel: [phone] Jason [place] Supervision of Apr-0 Wynn Referring In Womens Ultrasound other high risk 5- Roxie. Provider: Health PA, pregnancies, 8 700 Rajwinder PO Box third Medical [place], 200 1522, trimesterMatern [facility], care for oth or Lobito [place], susp poor fetl 120, , [place], [id number], grth, third tri, [place], [address]. [place] unspOther [place], tel: tel: malformation of [phone] [phone] placenta, third , [place]. [id number] weeks tel: gestation of [phone] [facility] Polyhydramnios, Apr-0 Wynn Referring In Womens third trimester, 5-201 Roxie. Provider: Health PA, not applicable or 8 700 Rajwinder PO Box unspEndo, Medical [place], 200 1522, nutritional and [facility], metab diseases Lobito [place], comp preg, third 120, , [place], [address], tri30 weeks [place], [address]. [place] gestation of [place], tel: tel: [phone] , [place]. tel: [phone] Jason [place] Supervision of Wynn Referring In Womens other high risk 5-201 Roxie. Provider: Health PA, pregnancies, 8 700 Rajwinder PO Box second Medical [place], 200 1522, trimesterOther [facility], malformation of Lobito [place], placenta, second 120, , [place], [address], [id number] weeks [place], [address]. [place] gestation of [place], tel: tel: [phone] , [place]. tel: [phone] Jason [place] Supervision of Wynn Referring In Womens other high risk 5-201 Roxie. Provider: Health PA, pregnancies, 8 700 Rajwinder PO Box second Medical [place], 200 1522, [id number] weeks [facility], gestation of Lobito [place], 120, , [place], [address], [place], [address]. [place], tel: tel: [phone] , [place]. tel: [phone] Jason [place] Other Oct- Wynn Referring In Womens Ultrasound malformation of - Roxie. Provider: Bon SANTIAGO, placenta, second 8 700 Rajwinder PO Box trimesterEndo, Medical [place], 200 1522, nutritional and [facility], metab diseases Lobito [place], comp preg, second 120, , [place], [address], tri23 weeks [place], [address]. [place] gestation of KAMRAN, tel: tel:[phone] [phone] , [place]. tel: [phone] Jason [place] Sep- Wynn In Womens - Roxie. Bon SANTIGAO, 8 700 PO Box Medical [address]22, [place], , Lobito ANDREW, 120, [id number], [place], [place], tel: [phone] , [place]. tel: [phone] Jason [place] Other Sep- Wynn Referring In Womens malformation of Roxie. Provider: Bon SANTIAGO, placenta, second 8 700 Rajwinder PO Box trimesterEndo, Medical [place], 200 1522, nutritional and [facility], metab diseases Lobito [place], comp preg, second 120, , [place], [address], tri19 weeks [place], [address]. [place] gestation of KAMRAN, tel: tel: [phone] , [place]. tel: [phone] Jason [place] Matern care for Sep- Wynn Referring In Womens Ultrasound oth or susp poor Roxie. Provider: Bon SANTIAGO, fetl grth, 2nd 8 700 Rajwinder PO Box tri, unsp19 weeks Medical [place], 200 1522, gestation of [facility], Lobito [place], 120, , [place], [address], [place], [address]. [place], tel: tel: [phone] , [place]. tel: [phone] Jason [place] Matern care for Aug- Wynn Referring In Womens oth or susp poor Roxie. Provider: Health PA, fetl grth, 2nd 7 700 Rajwinder PO Box tri, unsp15 weeks Medical [place], 200 1522, gestation of [facility], Lobito [place], 120, , [place], [id number], [place], [address]. [place], tel: tel:[phone] , [place]. tel: [phone] Jason [place] Supervision of Wynn Referring In Womens other high risk 1-201 Roxie. Provider: Health PA, pregnancies, 7 700 Rajwinder PO Box first Medical [place], 200 1522, trimesterEncntr [facility], screen for Lobito [place], infections w sexl 120, , [place], , mode of [place], [address]. [place] transmissEncounte [place], tel: tel:316 r for screening [phone] for oth , [place]. infec/parastc tel: diseasesEncounter [phone] for screening of [id number] weeks gestation of [facility] Less than 8 weeks Jun- Wynn Referring In Womens gestation of 7- Roxie. Provider: Health PA, pregnancyPersonal 7 700 Rajwinder PO Box history of comp Medical [place], 200 1522, of preg, chldbrth [facility], and the puerp Lobito [place], 120, , [place], [address], [place], [address]. [place], tel: tel:[phone] , [place]. tel: [phone] Jason [place] Supervision of Wynn Referring In Womens other high risk 3-201 Roxie. Provider: Health PA, pregnancies, 7 700 Rajwinder PO Box first Medical [place], 200 1522, trimesterLess Center [facility], than 8 weeks Lobito [place], gestation of 120, , [place], [address], pregnancyPersonal [place], [address]. [place] history of comp [place], tel: tel: of preg, chldbrth [phone] and the puerp , [place]. tel: [phone] [facility] Malignant Roger-2 Wynn Referring In Womens neoplasm of unsp 6-201 Roxie. Provider: Health JACK, kidney, except 7 700 Rajwinder PO Box renal Medical [place], 200 1522, pelvisHepatomegal Center [facility], [place], juan, not elsewhere , Lobito ANDREW, classifiedPap 120, , [place], [id number], Smear Screening, [place], [address]. [place] CervixEncounter [place], tel: tel: for surveillance [phone] of contraceptive , [place]. pills tel: [phone] [facility] Anemia, Mar-0 Wynn Referring In Womens unspecifiedTubal 9-201 Roxie. Provider: Bon SANTIAGO, preg w/out 7 700 Rajwinder PO Box intrauterine preg Medical [place], 200 1522, [facility], [place], 120, , [place], [id number], [place], [address]. [place], tel: tel: [phone] , [place]. tel: [phone] [facility] Anemia, Mar-0 Wynn In Womens unspecifiedTubal 7-201 Roxie. Health JACK, preg w/out 7 700 PO Box intrauterine preg Medical 15[address], [address] Rajesh, [facility] [place], 120, [id number], [place], [place], tel: [phone] , [place]. tel: [phone] [facility] Tubal preg w/out Feb-2 Wynn Referring In Womens intrauterine 4-201 Roxie. Provider: Health JACK, pregTubal preg 7 700 Rajwinder PO Box w/out Medical [place], 200 1522, intrauterine preg [facility], [place]W, 120, , [place], [address], [place], [address]. [place], tel: tel: [phone] , [place]. tel: [phone] Jason [place] Tubal preg w/out Feb-1 Wynn In Womens intrauterine preg 9-201 Roxie. Health JACK, 7 700 PO Box Medical [address], [address], [place], 120, [id number], [place], [place], tel: [phone] , [place]. tel: [phone] Jason [place] Acute Feb-1 Wynn Referring In Womens posthemorrhagic 7-201 Roxie. Provider: Health JACK, anemiaTubal preg 7 700 Rajwinder PO Box w/out Medical [place], 200 1522, [facility]uterine [facility], pregEncntr for Lobito [place], f/u exam aft 120, , [place], , trtmt for emily [place], [address]. [place] ot than [facility], tel: tel: neoplm [phone] , . tel: [phone] Jason [place] Acute Feb-1 Wynn Referring In Womens posthemorrhagic 0-201 Roxie. Provider: Bon SANTIAGO, anemiaTubal preg 7 700 Roxie Wynn PO Box w/out Medical K, 700 1522, intrauterine preg Center [address], [facility] [place], 120, Lobito 120, [id number], Jacobo [place], KAMRAN, [place], tel: [phone]. , [place]. tel: tel: [phone] Jason [place] Sly- Holdeman In Womens 0-201 Yue. Health JACK, 5 700 PO Box Medical [address]22, [address], [place], 120, [id number], [facility] [place], tel: [phone] , [place]. tel: [phone] Family History Family Member Diagnosis Age At [...] Insurance type Covered alliance party ID Authorization(s) [facility] [id number] [facility] [id number] Social History Type Description Quantity Date Captured [...] Future Order: Radiology Order Ultrasound OB Follow-up ([id number]) Ordered Future Order: Radiology Order Biophysical Profile without NST Ordered ([id number]) Future Order: Radiology Order Complete OB Ultrasound > 14 Ordered Weeks ([id number]) Future Order: Radiology Order Biophysical Profile without NST Ordered ([id number]) Future Order: Radiology Order Biophysical Profile without NST Ordered ([id number]) Future Order: Radiology Order Ultrasound OB Follow-up ([id number]) Ordered Date Type Problem Goal Intervention Status [...]
--- OUTSIDE RECORDS SUMMARY | 2018-02-28 06:09 | External Medical Summary | Continuity of Care Document ---
:1985 Author Organization [facility] Address [address] [place], [place] [id number] Phone Care Team Providers Name Role Phone [...] third tri 32 weeks gestation of - Supervision of [...] or unsp 32 weeks gestation of - Other malformation [...] Members [facility] January-0 Wynn In Womens 7-201 Roxie. Health JACK, 8 700 [address] Rajesh, [place], [address], [id number], [place], [place], tel: [phone] , [place]. tel: [phone] [facility] Polyhydramnios, January-0 Wynn Referring In Womens third trimester, 3- Roxie. Provider: Health JACK, not applicable or 8 700 Rajwinder [facility], 200 1522, malformation of [facility], placenta, third [place], [id number] weeks 120, , [place], , gestation of [place], [address]. [place], tel: tel:[phone] , [place]. tel: [phone] [facility] Supervision of January-0 Wynn Referring In Womens Ultrasound other high risk - Roxie. Provider: Bon SANTIAGO, pregnancies, 8 700 Rajwinder PO [facility] [place], 200 1522, trimesterPolyhydr [facility], amnios, third [place], trimester, not 120, , [place], , applicable or [place], [address]. [place] unspOther [place], tel: tel:2 malformation of [phone] placenta, third , [place]. [id number] weeks tel:+10-30 gestation of [id number] [facility] Dec-2 Wynn In Womens 7- Roxie. Health JACK, 8 700 [address]esh, [place], [address], [id number], [place], tel:[phone] , [place]. tel: [phone] [facility] Polyhydramnios, Dec-2 Wynn Referring In Womens third trimester, 6- Roxie. Provider: Health PA, not applicable or 8 700 Rajwinder [address] Box unsp33 weeks Medical [place], 200 1522, gestation of [facility], [place], 120, , [place], [id number], [place], [address]. [place], tel: tel:[phone] , [place]. tel: [phone] Jason [place] Supervision of Apr-2 Wynn Referring In Womens Ultrasound other high risk Roxie. Provider: Health PA, pregnancies, 8 700 Rajwinder PO Box third Medical [place], 200 1522, trimesterPolyhydr [facility], amnios, third [place], trimester, not 120, , [place], [id number], applicable or [place], [address]. [place] unspOther [place], tel: tel:[phone] malformation of [phone] placenta, third , [place]. [id number] weeks tel: gestation of [phone] [facility] Polyhydramnios, Apr- Wynn Referring In Womens third trimester, Roxie. Provider: Health PA, not applicable or 8 700 Rajwinder PO Box unsp32 weeks Medical [place], 200 1522, gestation of [facility], [place], 120, , [place], [id number], [place], [address]. [place], tel: tel:[phone] , [place]. tel: [phone] Jason [place] Polyhydramnios, Apr-1 Wynn Referring In Womens Ultrasound third trimester, Roxie. Provider: Health PA, not applicable or 8 700 Rajwinder PO Box unspOther Medical [place], 200 1522, malformation of [facility], placenta, third [place], trimesterEndo, 120, , [place], [id number], nutritional and [place], [address]. [place] metab diseases [place], tel: tel:[phone] comp preg, third [phone] tri32 weeks , [place]. gestation of tel: [phone] [facility] Supervision of Apr-1 Sobbing Referring In Womens other high risk 2-201 Flash. Provider: Health PA, pregnancies, 8 700 Rajwinder PO Box third Medical [place], 200 1522, trimesterPolyhydr [facility], amnios, third Drive, Singh ANDREW, trimester, not Suite , [place], [id number], applicable or 120, [address]. [place] unspEndo, [place], tel: tel:[phone] nutritional [place], [phone] [id number] metab diseases [address], comp preg, third [place]. triPersonal tel: history of comp [phone] of preg, chldbrth and the puerp [facility] Polyhydramnios, Apr-1 Wynn Referring In Womens Ultrasound third trimester, 2- Roxie. Provider: Health JACK, not applicable or 8 700 Rajwinder PO [facility] [place], 200 1522, malformation of [facility], placenta, third [place], [id number] weeks 120, , [place], [id number], gestation of [place], [address]. [place], tel: tel: [phone] , [place]. tel: [phone] Jason [place] Polyhydramnios, Apr-0 Wynn Referring In Womens third trimester, 5- Roxie. Provider: Health PA, not applicable or 8 700 Rajwinder [facility], 200 1522, nutritional and [facility], metab diseases [place], comp preg, third 120, , [place], [id number], tri30 weeks [place], [address]. [place] gestation of [place], tel: tel: [phone] , [place]. tel: [phone] Jason [place] Supervision of Apr-0 Wynn Referring In Womens Ultrasound other high risk 5-201 Roxie. Provider: Health PA, pregnancies, 8 700 Rajwinder PO Box third Medical [place], 200 1522, trimesterMatern [facility], care for oth or [place], susp poor fetl 120, , [place], [id number], grth, third tri, [place], [address]. [place] unspOther [place], tel: tel: malformation of [phone] placenta, third , [place]. [id number] weeks tel: gestation of [phone] [facility] Supervision of Wynn Referring In Womens other high risk 5-201 Roxie. Provider: Health PA, pregnancies, 8 700 Rajwinder PO Box second Medical [place], 200 1522, trimesterOther [facility], malformation of [place], placenta, second 120, , [place], [id number], [id number] weeks [place], [address]. [place] gestation of [place], tel: tel: [phone] , [place]. tel: [phone] Jason [place] Supervision of Wynn Referring In Womens other high risk 5-201 Roxie. Provider: Health PA, pregnancies, 8 700 Rajwinder PO Box second Medical [place], 200 1522, [id number] weeks [facility], gestation of [place], 120, , [place], [id number], [place], [address]. [place], tel: tel: [phone] , [place]. tel: [phone] Jason [place] Other Wynn Referring In Womens Ultrasound malformation of 5-201 Roxie. Provider: Health PA, placenta, second 8 700 Rajwinder PO Box trimesterEndo, Medical [place], 200 1522, nutritional and [facility], metab diseases [place], comp preg, second 120, , [place], [id number], tri23 weeks [place], [address]. [place] gestation of [place], tel: tel:[phone] , [place]. tel: [phone] Jason [place] Wynn In Womens 1-201 Roxie. Health PA, 8 700 [address], [facility] [place], [place], 120, [id number], [place], [place], tel: [phone] , [place]. tel:[phone] Jason [place] Other Sep- Wynn Referring In Womens malformation of Roxie. Provider: Bon SANTIAGO, placenta, second 8 700 Rajwinder PO Box trimesterEndo, Medical [place], 200 1522, nutritional and [facility], metab diseases [place], comp preg, second 120, , [place], [id number], tri19 weeks [place], [address]. [place] gestation of [place], tel: tel: [phone] , [place]. tel: [phone] Jason [place] Matern care for Sep- Wynn Referring In Womens Ultrasound oth or susp poor Rxoie. Provider: Bon SANTIAGO, fetl nanith, 2nd 8 700 Rajwinder PO Box tri, unsp19 weeks Medical [place], 200 1522, gestation of [facility], [place], 120, , [place], [id number], [place], [address]. [place], tel: tel:[phone] , [place]. tel: [phone] Jason [place] Matern care for Aug- Wynn Referring In Womens oth or susp poor Roxie. Provider: Bon SANTIAGO, fetl grth, 2nd 7 700 Rajwinder PO Box tri, unsp15 weeks Medical [place], 200 1522, gestation of [facility], [place], 120, , [place], [id number], [place], [address]. [place], tel: tel: [phone] , [place]. tel: [phone] Jason [place] Supervision of Jul- Wynn Referring In Womens other high risk Roxie. Provider: Health JACK, pregnancies, 7 700 Rajwinder PO Box first Medical [place], 200 1522, trimesterEncntr [facility], screen for [place], infections w sexl 120, , [place], , mode of [place], [address]. [place] transmissEncounte [place], tel: tel:[phone] r for screening [phone] for oth , [place]. infec/parastc tel: [facility] [phone] for screening of [id number] weeks gestation of [facility] Less than 8 weeks Jun- Wynn Referring In Womens gestation of 7-201 Roxie. Provider: Health PA, pregnancyPersonal 7 700 Rajwinder PO Box history of comp Medical [place], 200 1522, of preg, chldbrth [facility], and the puerp [place], 120, , [place], , [place], [address]. [place], tel: tel:[phone] , [place]. tel: [phone] Jason [place] Supervision of Wynn Referring In Womens other high risk 3-201 Roxie. Provider: Health PA, pregnancies, 7 700 Rajwinder PO Box first Medical [place], 200 1522, trimesterLess [facility], than 8 weeks [place], gestation of 120, , [place], , pregnancyPersonal [place], [address]. [place] history of comp [place], tel: tel: of preg, chldbrth [phone] and the puerp , [place]. tel: [phone] [facility] Malignant Roger-2 Wynn Referring In Womens neoplasm of unsp 6-201 Roxie. Provider: Health PA, kidney, except 7 700 Rajwinder PO Box renal Medical [place], 200 1522, pelvisHepatomegal [facility], y, not elsewhere [place], classifiedPap 120, , [place], [id number], Smear Screening, [place], [address]. [place] CervixEncounter [place], tel: tel:[phone] for surveillance [phone] of contraceptive , [place]. pills tel: [phone] [facility] Anemia, Mar-0 Wynn Referring In Womens unspecifiedTubal 9- Roxie. Provider: Health JACK, preg w/out 7 700 Rajwinder PO Box intrauterine preg [facility] [place], 200 1522, [facility], [place], [address], , [place], [id number], [place], [address]. [place], tel: tel:[phone] , [place]. tel: [phone] [facility] Anemia, Mar-0 Wynn In Womens unspecifiedTubal - Roxie. Health JACK, preg w/out 7 700 PO Box intrauterine preg Medical [address], [address] Rajesh, [facility] [place], [address], [id number], [place], [place], tel: [phone] , [place]. tel: [phone] [facility] Tubal preg w/out Feb-2 Wynn Referring In Womens intrauterine - Roxie. Provider: Bon SANTIAGO, pregTubal preg 7 700 Rajwinder PO Box w/out [facility] [place], 200 1522, [facility], [place], [address], , [place], [id number], [place], [address]. [place], tel: tel: [phone] , [place]. tel: [phone] [facility] Tubal preg w/out Feb-1 Wynn In Womens intrauterine preg - Roxie. Health JACK, 7 700 [address] Medical [address], [address] Rajesh, [facility] [place], 120, [id number], [place], [place], tel:+ [phone] , [place]. tel: [phone] [facility] Acute Feb-1 Wynn Referring In Womens posthemorrhagic - Roxie. Provider: Bon SANTIAGO, anemiaTubal preg 7 700 Rajwinder PO Box w/out [facility] [place], 200 1522, intrauterine [facility] Rajesh, pregEncntr for [place], f/u exam aft 120, , [place], [id number], trtmt for emily [place], [address]. [place] oth than zurdoobinna ANDREW, tel: tel: [phone] [phone] , [place]. tel: [phone] Jason [place] Acute Oct- Wynn Referring In Womens posthemorrhagic 0-201 Roxie. Provider: Health JACK, anemiaTubal preg 7 700 Roxie Wynn PO Box w/out Medical [place], 700 1522, intrauterine preg [facility] Rajesh, [facility] [place], 120, [place] 120, [id number], [place], KAMRAN, KAMRAN, tel: [phone]. , [place]. tel: tel: [phone] Jason [place] Sep- Holdeman In Womens 0-201 Yue. Health JACK, 5 700 [address], [address] Rajesh, [place], [address], [id number], [place], [place], tel: [phone] , [place]. tel: [phone] Family History Family Member Diagnosis Age At [...] Insurance type Covered alliance party ID Authorization(s) [facility] [id number] [facility] [id number] Social History Type Description Quantity Date Captured [...] Chyna, Shantelle BOOKED Future Order: Radiology Order Biophysical Profile without NST Ordered ([id number]) Future Order: Radiology Order Ultrasound OB Follow-up ([id number]) Ordered Future Order: Radiology Order Biophysical Profile without NST Ordered ([id number]) Future Order: Radiology Order Ultrasound OB Follow-up ([id number]) Ordered Future Order: Radiology Order Biophysical Profile without NST Ordered ([id number]) Future Order: Radiology Order Complete OB Ultrasound > 14 Ordered Weeks ([id number]) Future Order: Radiology Order Biophysical Profile without NST Ordered ([id number]) Future Order: Radiology Order Ultrasound OB Follow-up ([id number]) Ordered Date Type Problem Goal Intervention Status [...]
--- OUTSIDE RECORDS SUMMARY | 2018-02-28 06:09 | External Medical Summary | Continuity of Care Document ---
:1985 Author Organization [facility] Address [address] [place], [place] [id number] Phone Care Team Providers Name Role Phone [...] 8 700 Rajwinder [address] unspEncounter For [facility], 200 1522, [facility], Screening For [place], Streptococcus B35 120, , [place], , weeks gestation [place] [address]. [place] of [place], tel: tel:+ [phone] , [place]. tel: [phone] Jason [place] Supervision of Wynn Referring In Womens Ultrasound other high risk 0-201 Roxie. Provider: Bon SANTIAGO, pregnancies, 8 700 Rajwinder PO [address] third Medical [place], 200 1522, trimesterPolyhydr [facility], amnios, third Lobito [place], trimester, not 120, , [place], , applicable or [place], [address]. 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 [id number] weeks tel: gestation of [phone] [facility] May-0 Wynn In Womens 7-201 Roxie. Health JACK, 8 700 [address] Medical [address], [facility], Lobito [place], 120, [id number], [place], tel: [phone] , [place]. tel: [phone] [facility] Polyhydramnios, January-0 Wynn Referring In Womens third trimester, 3- Roxie. Provider: Health PA, not applicable or 8 700 Rajwinder PO Box unspOther Medical [place], 200 1522, malformation of [facility], placenta, third Lobito [place], [id number] weeks 120, , [place], [id number], gestation of [place], [address]. [place], tel: tel:[phone] , [place]. tel: [phone] Jason [place] Supervision of May-0 Wynn Referring In Womens Ultrasound other high risk 3- Roxie. Provider: Health PA, pregnancies, 8 700 Rajwinder PO Box third Medical [place], 200 1522, trimesterPolyhydr [facility], amnios, third Lobito [place], trimester, not 120, , [place], [id number], applicable or [place], [address]. [place] unspOther [place], tel: tel: malformation of [phone] placenta, third , [place]. [email or web address] weeks tel:+10-30 gestation of [id number] [facility] Apr-2 Wynn In Womens 7- Roxie. Health PA, 8 700 [address], [place], Lobito [place], 120, [id number], [place], tel:+ [phone] , [place]. tel: [phone] Jason [place] Polyhydramnios, Apr-2 Wynn Referring In Womens third trimester, 6- Roxie. Provider: Health PA, not applicable or 8 700 Rajwinder PO Box unsp33 weeks Medical [place], 200 1522, gestation of [facility], Lobito [place], 120, , [place], [id number], [place], [address]. [place], tel: tel:[phone] , [place]. tel: [phone] Jason [place] Supervision of Apr-2 Wynn Referring In Womens Ultrasound other high risk 6- Roxie. Provider: Health PA, pregnancies, 8 700 Rajwinder PO Box third Medical [place], 200 1522, trimesterPolyhydr [facility], amnios, third Lobito [place], trimester, not 120, , [place], [id number], applicable or [place], [address]. [place] unspOther [place], tel: tel:+ malformation of [phone] placenta, third , [place]. [id number] weeks tel: gestation of [phone] [facility] Apr-2 Wynn In Womens 5-201 Roxie. Health PA, 8 700 PO Gas Medical [address], [place], Dr, [place], 120, [id number], [place], [place], tel: [phone] , [place]. tel: [phone] [facility] [place] Polyhydramnios, Apr-1 Wynn Referring In Womens third trimester, 9- Roxie. Provider: Health PA, not applicable or 8 700 Rajwinder PO Gas unsp32 weeks [facility], 200 1522, gestation of [facility], Lobito [place], 120, , [place], [id number], [place], [address]. [place], tel: tel: [phone] , [place]. tel: [phone] [facility] [place] Polyhydramnios, Apr-1 Wynn Referring In Womens Ultrasound third trimester, Roxie. Provider: Health PA, not applicable or 8 700 Rajwinder [facility], 200 1522, malformation of [facility], placenta, third Lobito [place], trimesterEndo, 120, , [place], [id number], nutritional and [place], [address]. [place] metab diseases [place], tel: tel:[phone] comp preg, third [phone] [phone] tri32 weeks , [place]. gestation of tel: [phone] [facility] Supervision of Apr-1 [place] Referring In Womens other high risk 2- [place]. Provider: Health PA, pregnancies, 8 700 Rajwinder PO Box third [facility], 200 1522, trimesterPolyhydr [facility], amnios, third Drive, Singh ANDREW, trimester, not Suite , [place], [id number], applicable or 120, [address]. [place] unspEndoJacobo, tel: tel: nutritional and [place], [phone] metab diseases [address], comp preg, third [place]. triPersonal tel: history of comp [phone] of preg, chldbrth and the puerp [facility] Polyhydramnios, Apr-1 Wynn Referring In Womens Ultrasound third trimester, 2-201 Roxie. Provider: Health PA, not applicable or 8 700 Rajwinder PO Box [facility], 200 1522, malformation of [facility], placenta, third Lobito [place], [id number] weeks 120, , [place], [id number], gestation of [place], [address]. [place], tel: tel: [phone] , [place]. tel: [phone] Jason [place] Supervision of Apr-0 Wynn Referring In Womens Ultrasound other high risk 5- Roxie. Provider: Health PA, pregnancies, 8 700 Rajwinder PO Box [facility], 200 1522, trimesterMatern [facility], care for oth or Lobito [place], susp poor fetl 120, , [place], [id number], grth, third tri, [place], [address]. [place] unspOther [place], tel: tel: malformation of [phone] placenta, third , [place]. [id number] weeks tel: gestation of [phone] [facility] Polyhydramnios, Apr-0 Wynn Referring In Womens third trimester, 5-201 Roxie. Provider: Health PA, not applicable or 8 700 Rajwinder PO Box [facility], 200 1522, nutritional and [facility], metab diseases Lobito [place], comp preg, third 120, , [place], [id number], tri30 weeks [place], [address]. [place] gestation of [place], tel: tel: [phone] , [place]. tel: [phone] Jason [place] Supervision of Wynn Referring In Womens other high risk 5-201 Roxie. Provider: Health PA, pregnancies, 8 700 Rajwinder PO Box second [facility] [place], 200 1522, trimesterOther [facility], malformation of Lob[place], placenta, second 120, , [place], [id number], [id number] weeks [place], [address]. [place] gestation of [place], tel: tel: [phone] , [place]. tel: [phone] Jason [place] Supervision of Wynn Referring In Womens other high risk - Roxie. Provider: Health JACK, pregnancies, 8 700 Rajwinder PO Box second [facility] [place], 200 1522, [email or web address] weeks [facility], gestation of Lobito [place], 120, , [place], [id number], [place], [address]. [place], tel: tel: [phone] , [place]. tel: [phone] Jason [place] Other Wynn Referring In Womens Ultrasound malformation of - Roxie. Provider: Bon SANTIAGO, placenta, second 8 700 Rajwinder PO Box trimesterEndo, Medical [place], 200 1522, nutritional and [facility], metab diseases Lobito [place], comp preg, second 120, , [place], [id number], tri23 weeks [place], [address]. [place] gestation of [place], tel: tel: [phone] , [place]. tel: [phone] Jason [place] Sep- Wynn In Womens 1-201 Roxie. Health PA, 8 700 PO Box Medical [address], [facility], [place], 120, [id number], [place], [place], tel: [phone] , [place]. tel: [phone] Jason [place] Other Wynn Referring In Womens malformation of Roxie. Provider: Health JACK, placenta, second 8 700 Rajwinder PO Box trimesterEndo, Medical [place], 200 1522, nutritional and [facility], metab diseases L[place]ito [place], comp preg, second 120, , [place], [id number], tri19 weeks [place], [address]. [place] gestation of [place], tel: tel: [phone] , [place]. tel: [phone] Jason [place] Matern care for Wynn Referring In Womens Ultrasound oth or susp poor Roxie. Provider: Health JACK, fetl grth, 2nd 8 700 Rajwinder PO Box tri, unsp19 weeks Medical [place], 200 1522, gestation of [facility], [place], 120, , [place], , [place], [address]. [place], tel: tel:[phone] , [place]. tel: [phone] Jason [place] Matern care for Ywnn Referring In Womens oth or susp poor Roxie. Provider: Bon SANTIAGO, fetl grth, 2nd 7 700 Rajwinder PO Box tri, unsp15 weeks Medical [place], 200 1522, gestation of [facility], Lob[place], 120, , [place], [id number], [place], [address]. [place], tel: tel:[phone] , [place]. tel: [phone] Jason [place] Supervision of Wynn Referring In Womens other high risk Roxei. Provider: Health PA, pregnancies, 7 700 Rajwinder PO Box first [facility] [place], 200 1522, trimesterEncntr [facility], screen for Lobito [place], infections w sexl 120, , [place], [id number], mode of [place], [address]. [place] transmissEncounte [place], tel: tel: r for screening [phone] for oth , [place]. infec/parastc tel: diseasesEncounter [phone] for screening of [id number] weeks gestation of [facility] Less than 8 weeks Oct-2 Wynn Referring In Womens gestation of 7-201 Roxie. Provider: Bon SANTIAGO, pregnancyPersonal 7 700 Rajwinder PO Box history of comp [facility] [place], 200 1522, of preg, chldbrth [facility], and the puerp L[place]ito [place], 120, , [place], [id number], [place], [address]. [place], tel: tel: [phone] , [place]. tel: [phone] [facility] Supervision of Jun- Wynn Referring In Womens other high risk 3-201 Roxie. Provider: Bon SANTIAGO, pregnancies, 7 700 Rajwinder PO Box first [facility] [place], 200 1522, trimesterLess [facility], than 8 weeks [place], gestation of 120, , [place], , pregnancyPersonal [place], [address]. [place] history of comp [place], tel: tel: of preg, chldbrth [phone] and the puerp , [place]. 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 Provider: Bon SANTIAGO, kidney, except 7 700 Rajwinder PO Box renal Medical [place], 200 1522, pelvisHepatomegal [facility], y, not elsewhere [place], classifiedPap 120, , [place], [id number], Smear Screening, aJcobo, [address]. [place] CervixEncounter [place], tel: tel: for surveillance [phone] of contraceptive , [place]. pills tel: [phone] [facility] Anemia, Mar-0 Ywnn Referring In Womens unspecifiedTubal 9- Roxie. Provider: Bon SANTIAGO, preg w/out 7 700 Rajwinder PO Box intrauterine preg Medical [place], 200 1522, [facility] [address] Rajesh, [place], 120, , [place], [id number], [place], [address]. [place], tel: tel:+ [phone] , [place]. tel: [phone] [facility] Anemia, Mar-0 Wynn In Womens unspecifiedTubal 7-201 Roxie. Health PA, preg w/out 7 700 PO Box intrauterine preg Medical 1522, [place] [address] Rajesh, [facility] [place], 120, [id number], [place], [place], tel: [phone] , [place]. tel: [phone] [facility] Tubal preg w/out Feb-2 Wynn Referring In Womens intrauterine 4-201 Roxie. Provider: Health JACK, pregTubal preg 7 700 Rajwinder PO Box w/out Medical [place], 200 1522, intrauterine preg [facility] Dr Rajesh, [place], 120, , [place], , [place], [address]. [place], tel: tel: [phone] , [place]. tel: [phone] Jason [place] Tubal preg w/out Feb-1 Wynn In Womens intrauterine preg 9-201 Roxie. Health JACK, 7 700 PO Box Medical [address], [place] [address] Rajesh, [facility] [place], 120, [id number], [place], [place], tel: [phone] , [place]. tel: [phone] [facility] Acute Feb-1 Wynn Referring In Womens posthemorrhagic 7-201 Roxie. Provider: Health JACK, anemiaTubal preg 7 700 Rajwinder PO Box w/out [facility] [place], 200 1522, intrauterine [facility], pregEncntr for Lobito [place], f/u exam aft 120, , [place], [id number], trtmt for cond [place], [address]. [place] oth than [facility] [place], tel: tel: [phone] [phone] , . tel: [phone] Jason [place] Acute Oct- Wynn Referring In Womens posthemorrhagic 0-201 Roxie. Provider: Bon SANTIAGO, anemiaTubal preg 7 700 Roxie Wynn PO Box w/out Medical K, 700 1522, intrauterine preg [facility] Dr Rajesh, [place], 120, [place] 120, [id number], [place], [place], [place], tel: [phone]. , [place]. tel: tel: [phone] Jason [place] Sep- [place] In Womens 0-201 Yue. Bon SANTIAGO, 5 700 PO [address] Medical [address], [place] [address] Rajesh, [place], 120, [id number], [place], [place], tel: [phone] , . tel: [phone] Family History Family Member Diagnosis Age At [...] Insurance type Covered green party ID Authorization(s) [facility] [id number] [facility] [id number] Social History Type Description Quantity Date Captured [...] Future Order: Radiology Order Ultrasound OB Follow-up ([id number]) Ordered Future Order: Radiology Order Biophysical Profile without NST Ordered ([id number]) Future Order: Radiology Order Ultrasound OB Follow-up ([id number]) Ordered Future Order: Radiology Order Biophysical Profile without NST Ordered ([id number]) Future Order: Radiology Order Biophysical Profile without NST Ordered ([id number]) Future Order: Radiology Order Complete OB Ultrasound > 14 Ordered Weeks ([id number]) Future Order: Radiology Order Biophysical Profile without NST Ordered ([id number]) Future Order: Radiology Order Biophysical Profile without NST Ordered ([id number]) Future Order: Radiology Order Ultrasound OB Follow-up ([id number]) Ordered Date Type Problem Goal Intervention Status [...]
--- OUTSIDE RECORDS SUMMARY | 2018-02-28 06:10 | External Medical Summary | Continuity of Care Document ---
:1985 Author Organization [facility], [facility]. Allergies Active Description Code Type Severity Reaction Onset Reported/ Identified Relationship Clinical to Patient Status Yes NKDA N/A N/A Yes FLUOXETINE 1514 1 N/A Suicidal HCL Ideation Yes Fluoxetine 24058 Drug Severe Suicidal 09/14/2010 [id number] Aller ideation gy Yes No Allergy Drug N/A N/A 12/15/2013 Erroneous Information Aller Available gy Yes No Known 04600 Drug N/A N/A 12/15/2013 Confirmed Allergies 388 Aller but gy inactive Yes No Known 47011 ND N/A N/A 11/09/2016 Confirmed Drug Allergy 590 or Verified Yes No Known No Aller N/A N/A 11/09/2016 Allergies Known gy Aller gies Yes No Known Drug Unknown N/A 12/07/2016 Drug Allergy Aller gy Yes No Known Drug Unknown N/A 12/07/2016 Drug Aller Category gy Allergy Yes No Known Envir Unknown N/A 12/07/2016 Environment onmen Allergy nellie Aller gy Yes No Known Food Unknown N/A 12/07/2016 Food Allergy Aller gy Yes No Known Aller Unknown N/A 01/22/2018 Allergies gy Medications Medication Packaging Start Date Stop Date Route Dosage Sig Tablet 12/07/2016 Vitamin 7 1 (one) by tablet Oral route daily Tablet 12/07/2016 100 mg ibuprofen 100 mg take 1 (one) tablet Tablet by Oral route daily as needed Tylenol Ampule 12/07/2016 325 mg 325 mg tablet take 1 (one) Tablet by Oral route daily as needed TYLENOL ORAL 12/13/2016 ORAL ALEVE ORAL 12/13/2016 ORAL Package 03/27/2017 NORETHINDRONE 7 take 1 tablet by oral route every day Tablet 07/12/2017 DICLEGIS 8 take 1 tablet by oral route every day in the morning, 1 tablet in the mid-afternoo n, and 2 tablets at bedtime as needed for nausea ZOFRAN Tablet 08/20/[address] 1 Tablet by Oral route every [address] tablet on top of tongue until dissolved. ZOFRAN Tablet 08/29/[address] 1 Tablet by Oral route every [address] tablet on top of tongue until dissolved. ZOFRAN Tablet 09/09/[address] 1 Tablet by Oral route every [address] tablet on top of tongue until dissolved. Tube 10/31/2017 LIDOCAINE HCL apply a tiny amount by Topical route 2 times every day as needed Zyrtec 01/22/2018 PO 10 mg DAILY Tablet 01/24/2018 BUSPIRONE HCL take 1 tablet by oral route 2 times every day PRN Tablet 01/30/2018 BUTALBITAL-ACETAMIN take 1 - 2 OPHEN-CAFFE tablet by oral route every 6 hours as needed not to exceed 6 tablets per 24hrs ZOFRAN Tablet 02/03/[address] 1 Tablet by Oral route every [address] tablet on top of tongue until dissolved. Problems Date Dx Attending Type Code Diagnosis Diagnosed By Coded 11/30/2010 D 789.07 ABDOMINAL PAIN GENERALIZ 04/30/2011 D V22.1 SUPERVIS OTH NORMAL PREG 07/23/2011 D 623.5 NONINFECT VAG LEUKORRHEA 10/15/2011 D V22.1 SUPERVIS OTH NORMAL PREG 12/15/2011 D 648.93 OTH CURR COND-ANTEPARTUM 12/15/2011 D V02.51 HERNAN CARRIER GRP B STREPT 12/26/2011 D 648.91 OTH CURR COND-DELIVERED 12/26/2011 D 664.11 DEL W 2 DEG LACERAT-DEL 12/26/2011 D V02.51 HERNAN CARRIER GRP B STREPT 12/26/2011 D V27.0 DELIVER-SINGLE LIVEBORN 05/15/2012 D 626.8 MENSTRUAL DISORDER NEC 10/09/2013 JAKOB KANG MD V22.1 SUPERVIS OTH NORMAL PREG 12/17/2013 JAKOB KANG MD 648.91 OTH CURR COND-DELIVERED 12/17/2013 JAKOB KANG MD 664.01 DEL W 1 DEG LACERAT-DEL 12/17/2013 JAKOB KANG MD 669.91 COMP LAB/DELIV NOS-DELIV 12/17/2013 JAKOB KANG MD V02.51 HERNAN CARRIER GRP B STREPT 12/17/2013 JORGE LUIS AVITIA, JAKOB Will V27.0 DELIVER-SINGLE LIVEBORN 09/29/2014 Deven AVITIA, F V25.41 Routine follow-up for Rajwinder R. control pill prescription 11/09/2016 Deven AVITIA, F 789.01 Right upper quadrant Rajwinder R. abdominal pain 11/09/2016 Deven AVITIA, F 780.2 Syncope Rajwinder R. 11/09/2016 DEVEN AVITIA, Suman D64.9 Anemia, unspecified RAJWINDER R 11/09/2016 DEVEN AVITIA, Suman I95.9 Hypotension, RAJWINDER R unspecified 11/09/2016 DEVEN AVITIA, D R10.11 Right upper quadrant RAJWINDER R pain 11/09/2016 DEVEN AVITIA, Suman R19.01 Right upper quadrant RAJWINDER R abdominal swelling, mass and lump 11/09/2016 DEVEN AVITIA, Suman R55 Syncope and collapse RAJWINDER R 11/09/2016 DEVEN AVITIA, D Z32.01 Encounter for RAJWINDER R test, result positive 11/09/2016 Deven AVITIA, F V72.42 test, Rajwinder R. positive result 11/13/2016 Bocanegra, Roxie Ramirez D62 Acute posthemorrhagic anemia 11/13/2016 Bocanegra, Roxie Ramirez O00.10 Tubal preg w/out intrauterine preg 11/13/2016 Bocanegra, Roxie Ramirez D62 Acute posthemorrhagic anemia 11/13/2016 Bocanegra, Roxie Ramirez O00.10 Tubal preg w/out intrauterine preg 11/13/2016 Bocanegra, Roxie Ramirez D62 Acute posthemorrhagic anemia 11/13/2016 Bocanegra, Roxie K W O00.10 Tubal preg w/out intrauterine preg 11/22/2016 Deven AVITIA, F 235.3 Liver mass Rajwinder R. 11/22/2016 Deven AVITIA, F 309.0 Acute grief reaction Rajwinder R. 11/23/2016 Bocanegra, Roxie Ramirez D62 Acute posthemorrhagic anemia 11/23/2016 Bocanegra, Roxie Ramirez O00.10 Tubal preg w/out intrauterine preg 11/24/2016 Bocanegra, Roxie Ramirez O00.10 Tubal preg w/out intrauterine preg 11/24/2016 Bocanegra, Roxie K Ashley Z09 Encntr for f/u exam aft trtmt for cond oth than malobinna neoplm 11/26/2016 Bocanegra, Roxie K W O00.10 Tubal preg w/out intrauterine preg 11/26/2016 Bocanegra, Roxie K W O00.10 Tubal preg w/out intrauterine preg 11/29/2016 Deven AVITIA, F 236.91 Renal mass Rajwinder R. 11/30/2016 Deven AVITIA, F 633.10 Tubal , Rajwinder R. without intrauterine 12/07/2016 Bocanegra, Roxie Ramirez D64.9 Anemia, unspecified 12/07/2016 Bocanegra, Roxie K W O00.10 Tubal preg w/out intrauterine preg 12/07/2016 Bocanegra, Roxie K Ashley D64.9 Anemia, unspecified 12/07/2016 Bocanegra, Roxie K W O00.10 Tubal preg w/out intrauterine preg 12/11/2016 CHAPITO VELASCO MD N28.89 Other specified ROD AVITIA, Romero disorders of kidney CHAPITO F and ureter 12/11/2016 CHAPITO VELASCO MD R93.422 Abnormal radiologic Romero VELASCO MD findings on CHAPITO F diagnostic imaging of left kidney 01/01/2017 CHAPITO VELASCO MD N28.89 Other specified ROD AVITIA, Romero disorders of kidney CHAPITO F and ureter 01/28/2017 CHAPITO VELASCO MD 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, 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 01/28/2017 CHAPITO VELASCO MD K76.89 Other specified ROD AVITIA, Romero diseases of liver CHAPITO F 01/28/2017 CHAPITO VELASCO MD9.512 Neoplasm of DEAN, RENE F unspecified behavior of left kidney 01/28/2017 CHAPITO VELASCO MD K76.89 Other specified DEAN, RENE F diseases of liver 02/08/2017 CHAPITO VELASCO MD9.512 Neoplasm of ROD AVITIA, 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 02/08/2017 CHAPITO VELASCO MD Z09 Encounter for ROD AVITIA, Romero follow-up examination CHAPITO F after completed treatment for conditions other than malignant neoplasm 02/19/2017 CHAPITO VELASCO MD9.512 Neoplasm of ROD AVITIA, 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 02/19/2017 CHAPITO VELASCO MD K76.89 Other specified ROD AVITIA, F diseases of liver CHAPITO F 02/19/2017 CHAPITO VELASCO MD D49.512 Neoplasm of DEANARSLANON F unspecified behavior of left kidney 02/19/2017 CHAPITO VELASCO MD K76.89 Other specified DEAN, RENE F diseases of liver 03/08/2017 LEELA BLOOM O00.10 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 OPERATOR 05/17/2017 CHAPITO VELASCO MD 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, F unspecified kidney, CHAPITO F except renal pelvis 10/17/2017 Roxie Bocanegra O36.5920 Matern care for oth or susp poor fetl grth, 2nd tri, unsp 10/17/2017 Roxie Bocanegra3A.19 19 weeks gestation of 11/14/2017 Roxie Bocanegra 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, second trimester 11/14/2017 Roxie Bocanegra O99.282 Endo, nutritional and metab diseases comp preg, second tri 11/14/2017 Roxie Bocanegra3A.23 23 weeks gestation of 01/02/2018 Roxie Bocanegra O09.893 Supervision of other high risk pregnancies, third trimester 01/02/2018 Roxie Bocanegra O36.5930 Matern care for oth or susp poor fetl grth, third tri, unsp 01/02/2018 Roxie Bocanegra 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, third trimester 01/02/2018 Roxie Bocanegra3A.30 30 weeks gestation of 01/09/2018 Roxie Bocanegra O40.3xx0 Polyhydramnios, third trimester, not applicable or unsp 01/09/2018 Roxie Bocanegra 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, third trimester 01/09/2018 Roxie Bocanegra3A.31 31 weeks gestation of 01/16/2018 Roxie Bocanegra O40.3xx0 Polyhydramnios, third trimester, not applicable or unsp 01/16/2018 Bocanegra, Roxie Ramirez 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, third trimester 01/16/2018 Bocanegra, Roxie Junior99.283 Endo, nutritional and metab diseases comp preg, third tri 01/16/2018 Kingsley, Roxie Medina.32 32 weeks gestation of 01/23/2018 Roxie Bocanegra O09.893 Supervision of other high risk pregnancies, third trimester 01/23/2018 BocanegraRoxie O40.3xx0 Polyhydramnios, third trimester, not applicable or unsp 01/23/2018 Bocanegra, Roxie Ramirez 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, third trimester 01/23/2018 Kingsley, Roxie Medina.33 33 weeks gestation of 01/30/2018 Bocanegra, Roxie Junior09.893 Supervision of other high risk pregnancies, third trimester 01/30/2018 Roxie Bocanegra40.3xx0 Polyhydramnios, third trimester, not applicable or unsp 01/30/2018 Bocanegra, Roxie Ramirez 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, third trimester 01/30/2018 Kingsley, Roxie Medina.34 34 weeks gestation of 02/06/2018 Roxie Bocanegra O09.893 Supervision of other high risk pregnancies, third trimester 02/06/2018 Bocanegra, Roxie Junior40.3xx0 Polyhydramnios, third trimester, not applicable or unsp 02/06/2018 Roxie Bocanegra 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, third trimester 02/06/2018 Roxie Bocanegra.35 35 weeks gestation of 02/13/2018 Bocanegra, Roxie Ramirez O40.3xx0 Polyhydramnios, third trimester, not applicable or unsp 02/13/2018 Roxie Bocanegra 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, third trimester 02/13/2018 Bocanegra, Roxie Junior99.283 Endo, nutritional and metab diseases comp preg, third tri 02/13/2018 Roxie Bocanegra3A.36 36 weeks gestation of 02/20/2018 W O40.3xx0 Polyhydramnios, third trimester, not applicable or unsp 02/20/2018 W 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, third trimester 02/20/2018 W Z3A.37 37 weeks gestation of 02/27/2018 W O40.3xx0 Polyhydramnios, third trimester, not applicable or unsp 02/27/2018 W Z3A.38 38 weeks gestation of Procedures Code Description [place] [address] COMPLETE CBC, GALILEO AVITIA, NENA Will 11/30/2010 AUTOMATED 30881 BLOOD TYPING, DEVEN AVITIA, RAJWINDER Ford 04/30/2011 ABO 25434 BLOOD TYPING, RH DEVEN AVITIA, RAJWINDER Ford 2010 (D) 13790 BLOOD TYPING, DEVEN AVITIA, RAJWINDER Ford 04/30/2011 PATIENT SERUM 84639 KATY, DNA, DEVEN AVITIA, RAJWINDER Ford 04/30/2011 DIR PROBE 08565 LUI VAGDEVEN MD, KATHRYN R 04/30/2011 DNA, DIR PROBE 26687 TRICHOMONAS RAJWINDER CARVALHO MD 04/30/2011 VAGIN, DIR PROBE 65246 KATY, DNA, RAJWINDER CARVALHO MD 07/23/2011 DIR PROBE 54869 LUI VAG, DEVEN AVITIA, RAJWINDER Ford 07/23/2011 DNA, DIR PROBE 70597 TRICHOMONAS RAJWINDER CARVALHO MD 07/23/2011 VAGIN, DIR PROBE 13227 ROUTINE RAJWINDER CARVALHO MD 10/15/2011 VENIPUNCTURE 20960 GLUCOSE RAJWINDER CARVALHO MD 10/15/2011 TOLERANCE TEST (GTT) 83012 GTT-ADDED RAJWINDER CARVALHO MD 10/15/2011 SAMPLES 41303 HEMATOCRIT RAJWINDER CARVALHO MD 10/15/2011 46785 HEMOGLOBIN RAJWINDER CARVALHO MD 10/15/2011 08907 NON-STRESS RAJWINDER CARVALHO MD 2011 TEST 7359 MANUAL ASSIST TERA KANG MD 12/24/2011 DELIV NEC 7534 MONITORING TERA KANG MD 12/24/2011 NEC 7569 REPAIR OB TERA KANG MD 12/24/2011 LACERATION NEC 34901 ASSAY THYROID RAJWINDER CARVALHO MD 05/15/2012 STIM HORMONE 90484 COMPLETE CBC, RAJWINDER CARVALHO MD 05/15/2012 AUTOMATED 82054 ROUTINE FAST , JAKOB 10/09/2013 VENIPUNCTURE 16261 GLUCOSE FAST , JAKOB 10/09/2013 TOLERANCE TEST (GTT) 51197 GTT-ADDED FAST , JAKOB 10/09/2013 SAMPLES 7309 ARTIF RUPT FAST , JAKOB 12/15/2013 MEMBRANES NEC 734 MEDICAL FAST , JAKOB 12/15/2013 INDUCTION LABOR 7359 MANUAL ASSIST JORGE LUIS AVITIA, JAKOB 12/15/2013 DELIV NEC 7534 MONITORING JORGE LUIS AVITIA, JAKOB 12/15/2013 NEC 7569 REPAIR OB JORGE LUIS AVITIA, JAKOB 12/15/2013 LACERATION NEC 50854 09/29/2014 Office/outpatient visit; established patient, level 3 87692 ROUTINE RAJWINDER CARVALHO MD 11/09/2016 VENIPUNCTURE 70898 COMPREHEN RAJWINDER CARVALHO MD 11/09/2016 METABOLIC PANEL 39017 ASSAY OF AMYLASE RAJWINDER CARVALHO MD 2016 26520 ASSAY OF LIPASE RAJWINDER CARVALHO MD 11/09/2016 29730 CHORIONIC RAJWINDER CARVALHO MD 11/09/2016 GONADOTROPIN TEST 13509 CHORIONIC RAJWINDER CARVALHO MD 11/09/2016 GONADOTROPIN ASSAY 31837 COMPLETE CBC, RAJWINDER CARVALHO MD 11/09/2016 AUTOMATED 35908 BLOOD TYPING, RH RAJWINDER CARVALHO MD 2016 (D) 02129 BLOOD TYPING, RAJWINDER CARVALHO MD 11/09/2016 PATIENT SERUM 38221 COMPATIBILITY RAJWINDER CARVALHO MD 11/09/2016 TEST, SPIN 71266 HYDRATE IV RAJWINDER CARVALHO MD 11/09/2016 INFUSION, ADD-ON 46718 THER/PROPH/DIAG RAJWINDER CARVALHO MD 11/09/2016 INJ, IV PUSH 04297 TX/PRO/DX INJ RAJWINDER CARVALHO MD 11/09/2016 NEW DRUG ADDON 77880 TX/PRO/DX INJ RAJWINDER CARVALHO MD 11/09/2016 NEW DRUG OCCUPATIONAL THERAPY MANAGER 13726 EMERGENCY DEPT RAJWINDER CARVALHO MD 11/09/2016 VISIT G0378 HOSPITAL RAJWINDER CARVALHO MD 11/09/2016 OBSERVATION PER HR J2270 MORPHINE RAJWINDER CARVALHO MD R 11/09/2016 J2405 ONDANSETRON HCL DEVEN AVITIA, RAJWINDER Ford 11/09/2016 INJECTION J7120 RINGER'S DEVEN AVITIA, RAJWINDER Ford 11/09/2016 LACTATE INFUSION 36472 Laprscpy w/remov 11/09/2016 adnexalstructures 10073 Laprscpy w/remov 11/09/2016 adnexalstructures 01790 Emergency 11/09/2016 department visit high severityT hreat funcj 22404 Venpnctr 11/16/2016 fngr/heel/ear stick routne 32391 Chorionic 11/16/2016 gonadotropin test 05290 Automated 11/16/2016 hemogram (CBC) 51540 Emergency 11/22/2016 department visit high severityT hreat funcj RSLIV Return for liver 11/22/2016 panel in the next few weeks 08850 Venpnctr 11/23/2016 fngr/heel/ear stick routne 82172 Chorionic 11/23/2016 gonadotropin test REFER Set up patient 11/29/2016 referral to a databases computer consultant [id number] Follow up 11/30/2016 appointment in 2 weeks 61998 12/03/2016 Office/outpatient visit; established patient, level 4 38373 12/03/2016 Office/outpatient visit; established patient, level 4 84334 Venpnctr 12/06/2016 fngr/heel/ear stick routne 92242 Chorionic 12/06/2016 gonadotropin test 59837 Automated 12/06/2016 hemogram T platelet count 04683 URINALYSIS, BY CHAPITO VELASCO MD 12/11/2016 DIP STICK OR TABLET REAGENT FOR BILIRUBIN, GLUCOSE,HEMOGLOBIN, KETONES, LEUKOCYTES, N 77937 OFFICE CHAPITO VELASCO MD 12/11/2016 CONSULTATION FOR A NEW OR ESTABLISHED PATIENT, WHICH REQUIRESTHESE THREE PORTILLO COMPONENTS:A COM 71561 URINALYSIS, BY CHAPITO VELASCO MD 12/20/2016 DIP STICK OR TABLET REAGENT FOR BILIRUBIN, GLUCOSE,HEMOGLOBIN, KETONES, LEUKOCYTES, N 71497 OFFICE CHAPITO VELASCO MD 12/20/2016 CONSULTATION FOR A NEW OR ESTABLISHED PATIENT, WHICH REQUIRESTHESE THREE PORTILLO COMPONENTS:A COM 40529 OFFICE OR OTHER CHAPITO VELASCO MD 01/01/2017 OUTPATIENT VISIT FOR THE EVALUATION AND MANAGEMENT OF ANESTABLISHED PATIENT, WHICH R 80171 OFFICE OR OTHER CHAPITO VELASCO MD 01/11/2017 OUTPATIENT VISIT FOR THE EVALUATION AND MANAGEMENT OF ANESTABLISHED PATIENT, WHICH R 71374 DEAN SILVER LANDON 01/28/2017 SURGICAL; PARTIAL NEPHRECTOMY 46140 ULTRASONIC CHAPITO VELASCO MD 01/28/2017 GUIDANCE, INTRAOPERATIVE 38825 POSTOPERATIVE CHAPITO VELASCO MD 02/08/2017 FOLLOW-UP VISIT, INCLUDED IN GLOBAL SERVICE 29745 DEAN SILVER LANDON 03/04/2017 SURGICAL; PARTIAL NEPHRECTOMY 65395 ULTRASONIC CHAPITO VELASCO MD 03/04/2017 GUIDANCE, INTRAOPERATIVE 45978 CT ABD & NAT BAEZ 05/15/2017 PELVIS WITH CONTRAST 51994 COLLECTION OF CHAPITO VELASCO MD 05/17/2017 VENOUS BLOOD BY VENIPUNCTURE 95085 CT A & P W/ CHAPITO VELASCO MD 05/17/2017 CONTRAST 99576 BMP IONIZED CHAPITO VELASCO MD 05/17/2017 CALCIUM 94167 URINALYSIS, BY CHAPITO VELASCO MD 05/17/2017 DIP STICK OR TABLET REAGENT FOR BILIRUBIN, GLUCOSE,HEMOGLOBIN, KETONES, LEUKOCYTES, N 09330 URINE CHAPITO VELASCO MD 05/17/2017 TEST, BY VISUAL COLOR COMPARISON METHODS 54676 BLOOD COUNT; CHAPITO VELASCO MD 05/17/2017 HEMATOCRIT (HCT) 19684 BLOOD COUNT; CHAPITO VELASCO MD 05/17/2017 HEMOGLOBIN (HGB) 14028 OFFICE OR OTHER CHAPITO VELASCO MD 05/17/2017 OUTPATIENT VISIT FOR THE EVALUATION AND MANAGEMENT OF ANESTABLISHED PATIENT, WHICH R Q9967 OMNIPAQUE 300 CHAPITO VELASCO MD 05/17/2017 03458 Ultrasnd exam of 10/17/2017 preg uterus, compl 80181 Ultrasnd preg 11/14/2017 uterus, flwup/repeat 06202 Ultrasnd preg 01/02/2018 uterus, flwup/repeat 28357 Immuniz admnin, 01/02/2018 1 vac, sngl/combo 71776 TDAP VACCINE 01/02/2018 >7 IM 04747 biophys 01/09/2018 prfl w/o nstress test 04407 biophys 01/16/2018 prfl w/o nstress test 22955 biophys 01/23/2018 prfl w/o nstress test 56873 Ultrasnd preg 01/30/2018 uterus, flwup/repeat 36550 biophys 01/30/2018 prfl w/o nstress test 29220 biophys 02/06/2018 prfl w/o nstress test 04777 biophys 02/13/2018 prfl w/o nstress test 19705 biophys 02/20/2018 prfl w/o nstress test 47413 Ultrasnd preg 02/27/2018 uterus, flwup/repeat 83647 biophys 02/27/2018 prfl w/o nstress test Results Test Result Range Gluc Tolerance OB 3 Hr - 10/09/13 12:10 Glucose 1Hr 114 <=190 Glucose 2 Hr 93 <=165 Glucose 3 Hr 66 <=140 Glucose Fasting 76 <=105 CBC - 12/15/13 07:10 Eos # 0.06 x10^3 0-0.5 Eos % 0.8 % 0-4 HCT 38.5 % 37.0-47.0 HGB 12.5 G/DL 12.0-16.0 Lymph # 1.43 x10^3 1.0-4.0 Lymph % 18.3 % 20-50 MCH 28.7 PG 27.0-31.0 MCHC 32.5 G/DL 32.0-36.0 MCV 88.5 FL 81-99 [place] # 0.57 x10^3 0.0-0.8 [place] % 7.3 % 1.0-9.0 MPV 11.8 FL 6.0-10.0 Platelet 181 x10^3 150-400 RBC 4.35 x10^3 4.20-5.40 RDW 14.5 % 12-15 WBC 7.80 x10^3 4.8-10.8 Baso # 0.02 x10^3 0-0.2 Baso % 0.3 % 0-2 Neut % 73.3 % 50-70 Neut # 5.72 x10^3 3.0-7.0 HCT - 12/16/13 07:15 HCT 41.0 % 37.0-47.0 HGB - 12/16/13 07:15 HGB 13.5 G/DL 12.0-16.0 CBC - 11/09/16 04:52 Eos # 0.00 x10^3 0-0.5 Eos % 0.0 % 0-4 HCT 33.4 % 37.0-47.0 HGB 10.8 G/DL 12.0-16.0 Lymph # 0.94 x10^3 1.0-4.0 Lymph % 7.6 % 20-50 MCH 27.8 PG 27.0-31.0 MCHC 32.3 G/DL 32.0-36.0 MCV 86.1 FL 81-99 [place] # 0.59 x10^3 0.0-0.8 [place] % 4.8 % 1.0-9.0 MPV 10.5 FL 6.0-10.0 Platelet 247 x10^3 150-400 RBC 3.88 x10^3 4.20-5.40 RDW 12.3 % 12-15 WBC 12.32 x10^3 4.8-10.8 Baso # 0.01 x10^3 0-0.2 Baso % 0.1 % 0-2 Neut % 87.5 % 50-70 Neut # 10.78 x10^3 3.0-7.0 Serum - 11/09/16 04:57 Serum POS Comprehensive Metabolic Panel - 11/09/16 05:00 Sodium 135 MMOLL 134-145 Potassium 4.0 MMOLL 3.6-5.0 Chloride 98 MMOLL 98-107 CO2 25 MMOLL 22-30 Glucose 148 MG/DL 75-110 BUN 13 MG/DL 9-20 Creatinine .74 MG/DL 0.8-1.7 Calcium 8.9 MG/DL 8.4-10.2 T Bili .7 MG/DL 0.2-1.3 T. Protein 6.4 G/DL 6.3-8.2 A/G Ratio 1.3 RATIO Albumin 3.6 G/DL 3.5-5.0 Alk Phos 43 U/L 38-126 ALT 31 U/L 11-66 AST 22 U/L 14-36 EGFR 92 MLMIN Amylase - 11/09/16 05:00 Amylase 62 U/L 30-110 Lipase - 11/09/16 05:00 Lipase 37 MG/DL 23-300 CBC - 11/09/16 10:43 Eos # 0.00 x10^3 0-0.5 Eos % 0.0 % 0-4 HCT 28.4 % 37.0-47.0 HGB 9.0 G/DL 12.0-16.0 Lymph # 1.28 x10^3 1.0-4.0 Lymph % 13.4 % 20-50 MCH 27.4 PG 27.0-31.0 MCHC 31.7 G/DL 32.0-36.0 MCV 86.6 FL 81-99 [place] # 0.60 x10^3 0.0-0.8 [place] % 6.3 % 1.0-9.0 MPV 10.1 FL 6.0-10.0 Platelet 200 x10^3 150-400 RBC 3.28 x10^3 4.20-5.40 RDW 12.4 % 12-15 WBC 9.53 x10^3 4.8-10.8 Baso # 0.01 x10^3 0-0.2 Baso % 0.1 % 0-2 Neut % 80.2 % 50-70 Neut # 7.64 x10^3 3.0-7.0 Type and Screen - 11/09/16 11:55 RH Type POS ABO Type O Antibody Screen NEG Negative L100.0050 - 11/09/16 12:07 WBC - WHITE BLOOD COUNT 11.3 T/MM3 4.5-11.0 RED BLOOD COUNT 3.27 M/MM3 4.00-5.20 HGB - HEMOGLOBIN 9.2 GM/DL 12-16 HCT - HEMATOCRIT 28.3 % 36-46 MEAN CORPUSCULAR VOLUME 86.5 UM3 80-100 MEAN CORPUSCULAR HGB 28.1 UUG 26-34 MEAN CORPUSCULAR HGB CONC(MCHC 32.5 GM/DL 31-37 RDW STANDARD DEVIATION 37.8 FL 36.9-50.2 PLT - PLATELET COUNT 200 T/MM3 130-400 MEAN PLATELET VOLUME 10.5 UM3 9.4-12.4 NEUTROPHILS % (AUTO) 74.7 % 33-66 LYMPHOCYTES % (AUTO) 17.4 % 23-45 MONOCYTES % (AUTO) 7.6 % 0-9.0 EOSINOPHILS % (AUTO) 0.0 % 0-4 BASOPHILS % (AUTO) 0.1 % 0-2 IMMATURE GRANULOCYTE % (AUTO) 0.2 % 0.0-0.5 NEUTROPHILS # (AUTO) 8.5 T/MM3 1.8-7.7 LYMPHOCYTES # (AUTO) 2.0 T/MM3 1-4.8 MONOCYTES # (AUTO) 0.9 T/MM3 0-0.8 EOSINOPHILS # (AUTO) 0.0 T/MM3 0-0.5 BASOPHILS # (AUTO) 0.0 T/MM3 0-0.2 IMMATURE GRANULOCYTE # (AUTO) 0.02 T/MM3 0.00-0.03 L160.0105 - 11/09/16 12:07 INR 1.17 0.76-1.04 L160.0110 - 11/09/16 12:07 PTT 27.4 SEC 24-36 L200.0020 - 11/09/16 12:07 ICTERUS < 2 0-7 HEMOLYSIS < 15 0-25 TURBIDITY < 20 0-20 SODIUM 140 MEQ/L 134-144 POTASSIUM 4.1 MEQ/L 3.6-5 CHLORIDE 107 MEQ/L 98-107 CO2 - CARBON DIOXIDE 24 MEQ/L 22-30 ANION GAP 9 MEQ/L 5-15 BLOOD UREA NITROGEN 9.0 MG/DL 7-17 CREATININE 0.6 MG/DL 0.7-1.2 BUN/CREATININE RATIO 15 RATIO 6-26 GLOMERULAR FILTRATION RATE 117 GLUCOSE 98 MG/DL 65-110 OSMOLALITY,CALCULATED 268 MOSM/KG 261-280 CALCIUM 9.1 MG/DL 8.4-10.2 BILIRUBIN,TOTAL 0.70 MG/DL 0.20-1.30 ALKALINE PHOSPHATASE 39 U/L 38-126 TOTAL PROTEIN 5.3 G/DL 6.3-8.2 ALBUMIN 3.2 G/DL 3.5-5.0 GLOBULIN 2.1 G/DL 2.4-3.6 ALBUMIN/GLOBULIN RATIO 1.5 RATIO 1.1-2.2 AST (SGOT) 17 U/L 14-36 ALT (SGPT) 30 U/L 9-52 L200.3902 - 11/09/16 12:07 HCG-QUANTITATIVE 4039.9 mIU/mL B100.0700 - 11/09/16 12:07 BLOOD TYPE O POSITIVE ANTIBODY SCREEN NEGATIVE Crossmatch - 11/09/16 12:35 Unit ABOR OPOS Unit # [id number] Unit Exp 2016 Crossmatch COMPAT Crossmatch - 11/09/16 12:36 Unit ABOR OPOS Unit # [id number] Unit Exp 2016DECEMBER 10 Crossmatch COMPAT L100.0 - 11/09/16 16:10 WBC - WHITE BLOOD COUNT 10.0 T/MM3 4.5-11.0 RED BLOOD COUNT 2.85 M/MM3 4.00-5.20 HGB - HEMOGLOBIN 8.0 GM/DL 12-16 HCT - HEMATOCRIT 25.0 % 36-46 MEAN CORPUSCULAR VOLUME 87.7 UM3 80-100 MEAN CORPUSCULAR HGB 28.1 UUG 26-34 MEAN CORPUSCULAR HGB CONC(MCHC 32.0 GM/DL 31-37 RDW STANDARD DEVIATION 38.8 FL 36.9-50.2 PLT - PLATELET COUNT 163 T/MM3 130-400 MEAN PLATELET VOLUME 9.9 UM3 9.4-12.4 L100.0070 - 11/10/16 05:11 WBC - WHITE BLOOD COUNT 7.1 T/MM3 4.5-11.0 RED BLOOD COUNT 2.54 M/MM3 4.00-5.20 HGB - HEMOGLOBIN 7.0 GM/DL 12-16 HCT - HEMATOCRIT 22.6 % 36-46 MEAN CORPUSCULAR VOLUME 89.0 UM3 80-100 MEAN CORPUSCULAR HGB 27.6 UUG 26-34 MEAN CORPUSCULAR HGB CONC(MCHC 31.0 GM/DL 31-37 RDW STANDARD DEVIATION 40.1 FL 36.9-50.2 PLT - PLATELET COUNT 145 T/MM3 130-400 MEAN PLATELET VOLUME 10.6 UM3 9.4-12.4 Beta HCG Quant - 11/10/16 07:11 Beta HCG Quant 4480 mIU/m L200.0040 - 11/23/16 07:47 ICTERUS < 2 0-7 HEMOLYSIS < 15 0-25 TURBIDITY < 20 0-20 BILIRUBIN,TOTAL 0.40 MG/DL 0.20-1.30 BILIRUBIN,UNCONJUGATED-INDIREC 0.10 MG/DL 0.00-1.10 BILIRUBIN, CONJUGATED-DIRECT 0.00 MG/DL 0.00-0.30 ALKALINE PHOSPHATASE 58 U/L 38-126 TOTAL PROTEIN 7.2 G/DL 6.3-8.2 ALBUMIN 4.4 G/DL 3.5-5.0 GLOBULIN 2.8 G/DL 2.4-3.6 ALBUMIN/GLOBULIN RATIO 1.6 RATIO 1.1-2.2 AST (SGOT) 22 U/L 14-36 ALT (SGPT) 52 U/L 9-52 URINALYSIS - 12/07/16 09:48 COLOR STRAW NRG RBC NEGATIVE NEGATIVE NITRITES NEGATIVE NEGATIVE LEUKOCYTE ESTERASE NEGATIVE NEGATIVE GLUCOSE NEGATIVE NEGATIVE BILIRUBIN NEGATIVE NEGATIVE KETONES NEGATIVE mg/dL NEGATIVE SPECIFIC GRAVITY 1.025 1.010 - 1.030 pH 5.5 5.0 - 8.0 PROTEIN NEGATIVE mg/dL NEGATIVE UROBILINOGEN 0.2 E.U./dL E.U./dL 0.2 E.U./dL OTHER, BIOPSY - 02/12/17 17:34 Misc. Result, see notes for description See Attached NRG URINALYSIS - 05/15/17 15:08 COLOR STRAW NRG RBC NEGATIVE NEGATIVE NITRITES NEGATIVE NEGATIVE LEUKOCYTE ESTERASE NEGATIVE NEGATIVE GLUCOSE NEGATIVE NEGATIVE BILIRUBIN NEGATIVE NEGATIVE KETONES NEGATIVE mg/dL NEGATIVE SPECIFIC GRAVITY 1.010 1.010 - 1.030 pH 6.5 5.0 - 8.0 PROTEIN NEGATIVE mg/dL NEGATIVE UROBILINOGEN 0.2 E.U./dL E.U./dL 0.2 E.U./dL URINE HCG - 05/15/17 15:32 HCG NEGATIVE NEGATIVE - POSITIVE CHEM PANEL 8+ - 05/15/17 16:31 GLUCOSE 78 mg/dL 70-105 UREA NITROGEN (BUN) 12 mg/dL 8-26 CREATININE 0.8 mg/dL 0.6-1.3 SODIUM 142 mmol/L 138-146 POTASSIUM 3.6 mmol/L 3.5-4.9 CHLORIDE 101 mmol/L 98-109 CARBON DIOXIDE 27 mmol/L 24-29 IONIZED CALCIUM 1.28 mmol/L 1.12-1.32 HCT 44 %pcv 38-51 HGB 15.0 g/dL 12.0-17.0 ANGAP 18 mmol/L 10-20 CT ABDOMEN W CONTRAS - 05/21/17 08:30 CT ABDOMEN W CONTRAS See Attached Document NRG CT PELVIS W CONTRAST - 05/21/17 08:30 CT PELVIS W CONTRAST See Attached Document NRG [id number] - 07/24/17 09:53 Free T4 (Free Thyroxine)-AMS 0.8 ng/dL 0.7-1.5 L750.9150 - 07/24/17 09:53 TSH - Thyroid Stim Horm-AMS 2.97 uIU/mL 0.35-4.94 L750.8783 - 07/24/17 09:53 T3 Total - AMS 164 ng/dL 87-178 Encounters ACCT No. Visit Discharge Status Pt. Type Provider Facility Loc./Unit Complaint Date/Time [id number] 11/09/2016 11/09/2016 Singh Galan MD NS1 05:23:00 11:23:00 [facility] [id number] 12/15/2013 12/17/2013 Singh Shook MD NS1 06:58:00 15:15:00 t [facility] [id number] 10/09/2013 10/09/2013 Singh Lam MD, ALAB 08:09:00 08:09:00 [facility] [id number] 05/15/2012 Document 13:58:00 Registra tion [id number] 12/24/2011 Document 22:00:00 Registra tion [id number] 12/15/2011 Document 19:55:00 Registra tion [id number] 10/15/2011 Document 08:18:00 Registra tion [id number] 07/23/2011 Document 11:51:00 Registra tion [id number] 04/30/2011 Document 13:04:00 Registra tion [id number] 11/30/2010 Document 10:50:00 Registra tion [id number] 11/29/2016 11/29/2016 RDORI Carvalho MD, [facility]_ M 1 11:18:47 12:45:19 nt Rajwinder Beltre dge [id number] 05/22/2017 DIS Document 00:00:00 Registra tion [id number] 01/22/2018 01/22/[address] [facility] Sinus 455 09:42:00 10:16:00 nt MAXINE SANTIAGO [facility] Practice [id number] 07/24/2017 07/24/[address] [facility] # follow up 117 09:16:00 11:33:00 nt [facility] Practice fair labs [id number] 03/08/2017 03/08/[address] 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 [id number] 12/14/2016 12/14/2016 CLS Jacobo Aden DARIEN 697 06:33:00 23:59:59 nt [facility] [id number] 11/23/2016 11/23/2016 Jacobo Green MD DARIEN 790 07:38:00 23:59:59 nt [facility] [id number] 11/16/2016 11/16/2016 Jacobo Green MD DARIEN 391 06:41:00 23:59:59 nt [facility] [id number] 11/09/2016 11/09/2016 Jacobo Peck MD SCU 246 12:12:00 12:12:00 nt [facility] [id number] 03/03/2018 PEN Preadmit Jacobo BOCANEGRA MD 150 08:00:00 [facility] [id number] 12/17/2016 12/17/2016 DIS Outpatie 13:08:53 13:08:53 nt [id number] 05/17/2017 05/17/2017 CLS Eligio VELASCO MD, 14:58:01 23:59:59 nt CHAPITO Jasso [id number] 02/13/2018 02/13/2018 CLS Outpatie Bocanegra, 10:35:00 23:59:59 nt Roxie Resendiz [id number] 02/13/2018 02/13/2018 CLS Outpatie Bocanegra, 10:15:00 23:59:59 nt Roxie Resendiz [id number] 02/10/2018 02/10/2018 CLS Outpatie Bocanegra, 10:38:00 23:59:59 nt Roxie Resendiz [id number] 02/06/2018 02/06/2018 CLS Outpatie Bocanegra, 10:35:00 23:59:59 nt Roxie Resendiz [id number] 02/06/2018 02/06/2018 CLS Outpatie Bocanegra, 10:15:00 23:59:59 nt Roxie Resendiz [id number] 02/03/2018 02/03/2018 CLS Outpatie Bocanegra, 08:53:00 23:59:59 nt Roxie Resendiz [id number] 01/30/2018 01/30/2018 CLS Outpatie Bocanegra, 10:15:00 23:59:59 nt Roxie Resendiz [id number] 01/30/2018 01/30/2018 CLS Outpatie Bocanegra, 09:45:00 23:59:59 nt Roxie Resendiz [id number] 01/28/2018 01/28/2018 CLS Outpatie Bocanegra, 10:35:00 23:59:59 nt Roxie Resendiz [id number] 01/24/2018 01/24/2018 CLS Outpatie Bocanegra, 09:21:00 23:59:59 nt Roxie Resendiz [id number] 01/23/2018 01/23/2018 CLS Outpatie Bocanegra, 10:35:00 23:59:59 nt Roxie Resendiz [id number] 01/23/2018 01/23/2018 CLS Outpatie Bocanegra, 10:15:00 23:59:59 nt Roxie Resendiz [id number] 01/22/2018 01/22/2018 CLS Outpatie Bocanegra, 09:16:00 23:59:59 nt Roxie Resendiz [id number] 01/16/2018 01/16/2018 CLS Outpatie Bocanegra, 13:42:00 23:59:59 nt Roxie Resendiz [id number] 01/16/2018 01/16/2018 CLS Outpatie Bocanegra, 11:30:00 23:59:59 nt Roxie Resendiz [id number] 01/16/2018 01/16/2018 CLS Outpatie Bocanegra, 11:15:00 23:59:59 nt Roxie Resendiz [id number] 01/15/2018 01/15/2018 CLS Outpatie Bocanegra, 08:13:00 23:59:59 nt Roxie Resendiz [id number] 01/09/2018 01/09/2018 CLS Outpatie Sobbing, 15:45:00 23:59:59 nt Flash Dey [id number] 01/09/2018 01/09/2018 CLS Outpatie Bocanegra, 15:15:00 23:59:59 nt Roxie Resendiz [id number] 01/02/2018 01/02/2018 CLS Outpatie Bocanegra, 14:31:00 23:59:59 nt Roxie Resendiz [id number] 01/02/2018 01/02/2018 CLS Outpatie Bocanegra, 11:15:00 23:59:59 tomás Resendiz [id number] 01/02/2018 01/02/2018 CLS Outpatie Bocanegra, 11:15:00 23:59:59 tomás Resendiz [id number] 12/17/2017 12/17/2017 CLS Outpatie Bocanegra, 09:38:00 23:59:59 tomás Resendiz [id number] 12/12/2017 12/12/2017 CLS Outpatie Bocanegra, 09:10:00 23:59:59 tomás Resendiz [id number] 11/14/2017 11/14/2017 CLS Outpatie Bocanegra, 09:00:00 23:59:59 tomás Resendiz [id number] 11/14/2017 11/14/2017 CLS Outpatie Bocanegra, 08:15:00 23:59:59 tomás Resendiz [id number] 10/30/2017 10/30/2017 CLS Outpatie Bocanegra, 09:52:00 23:59:59 nt Roxie Resendiz [id number] 10/28/2017 10/28/2017 CLS Outpatie Bocanegra, 11:36:00 23:59:59 tomás Resendiz [id number] 10/22/2017 10/22/2017 CLS Outpatie Bocanegra, 11:24:00 23:59:59 nt Roxie Resendiz [id number] 10/17/2017 10/17/2017 CLS Outpatie Bocanegra, 10:15:00 23:59:59 tomás Resendiz [id number] 10/17/2017 10/17/2017 CLS Outpatie Bocanegra, 09:45:00 23:59:59 tomás Resendiz [id number] 10/07/2017 10/07/2017 CLS Outpatie Bocanegra, 10:29:00 23:59:59 tomás Resendiz [id number] 09/19/2017 09/19/2017 CLS Outpatie Bocanegra, 11:37:00 23:59:59 tomás Resendiz [id number] 09/17/2017 09/17/2017 CLS Outpatie Bocanegra, 11:05:00 23:59:59 tomás Resendiz [id number] 09/09/2017 09/09/2017 CLS Outpatie Bocanegra, 15:51:00 23:59:59 tomás Resendiz [id number] 09/04/2017 09/04/2017 CLS Outpatie Bocanegra, 09:02:00 23:59:59 tomás Resendiz [id number] 08/29/2017 08/29/2017 CLS Outpatie Bocanegra, 10:29:00 23:59:59 tomás Resendiz [id number] 08/21/2017 08/21/2017 CLS Outpatie Bocanegra, 11:04:00 23:59:59 tomás Resendiz [id number] 08/20/2017 08/20/2017 CLS Outpatie Bocanegra, 10:15:00 23:59:59 tomás Resendiz [id number] 07/26/2017 07/26/2017 CLS Outpatie Bocanegra, 09:50:00 23:59:59 tomás Resendiz [id number] 07/12/2017 07/12/2017 CLS Outpatie Bocanegra, 09:30:00 23:59:59 tomás Resendiz [id number] 03/27/2017 03/27/2017 CLS Outpatie Bocanegra, 15:16:00 23:59:59 tomás Resendiz [id number] 03/25/2017 03/25/2017 CLS Outpatie Bocanegra, 13:30:00 23:59:59 tomás Resendiz [id number] 12/07/2016 12/07/2016 CLS Outpatie Bocanegra, 09:06:00 23:59:59 tomás Resendiz [id number] 12/06/2016 12/06/2016 CLS Outpatie Bocanegra, 07:18:00 23:59:59 tomás Resendiz [id number] 12/04/2016 12/04/2016 CLS Outpatie Bocanegra, 09:00:00 23:59:59 nt Roxie Resendiz [id number] 11/23/2016 11/23/2016 CLS Outpatie Bocanegra, 10:20:00 23:59:59 tomás Resendiz [id number] 11/23/2016 11/23/2016 CLS Outpatie Garo, 09:35:00 23:59:59 nt Roxie Mercado [id number] 11/18/2016 11/18/2016 CLS Outpatie Bocanegra, 21:29:00 23:59:59 tomás Resendiz [id number] 11/16/2016 11/16/2016 CLS Outpatie Bocanegra, 08:50:00 23:59:59 tomás Resendiz [id number] 11/09/2016 11/09/2016 CLS Outpatie Bocanegra, 18:11:00 23:59:59 tomás Resendiz [id number] 11/09/2016 11/09/2016 CLS Outpatie Derek, 00:00:00 23:59:59 nt Kelvin Ford [id number] 02/27/2018 Document 10:35:00 Registra tion [id number] 02/27/2018 Document 10:15:00 Registra tion [id number] 02/20/2018 Document 10:15:00 Registra tion
[2018-02-28] MEDS ORDERED: FAMOTIDINE PB 20 MG/50 ML BAG IV ONE (07:33)
[2018-02-28] MEDS ORDERED: CITRIC ACID/SODIUM CITRATE 30ml PO ONE (07:33)
[2018-02-28 07:54] VITALS: BMI 30.2
[2018-02-28] MEDS ORDERED: NALOXONE 2 MG/2 ML INJECTION PFS IVP PRN ×2 (09:47→12:00)
--- NOTE | 2018-02-28 09:47 | Anesthesia Preoperative Report ---
Anesthesia Epidural/Spinal Rec - Date and Time Date: 02/28/18 Procedure: (vs), Labor Epidural (vs) Plan: CSE - Vital Signs Vital Signs: Pulse Rate 86 02/28/18 07:45 Respiratory Rate 16 02/28/18 07:45 Blood Pressure 132/82 02/28/18 07:45 Pulse Oximetry 100 02/28/18 07:45 NPO since: mn /Para: P:2 - Medictaions & Allergies Inpatient Medications: Current Medications Acetaminophen (Tylenol) 500 - 1,000 mg PO Q4H PRN PRN Reason: Pain Al Hydroxide/Mg Hydroxide (Maalox Plus) 30 ml PO Q3H PRN PRN Reason: Indigestion Calcium Carbonate (Tums) 500 - 1,000 mg PO Q2H PRN PRN Reason: Indigestion Carboprost Tromethamine (Hemabate) 250 mcg IM O PRN PRN Reason: .Downtime Dextrose/Lactated Ringer's (Dextrose 5%-Lactated Ringers) 1,000 mls @ 125 mls/ hr IV .Q8H PRN PRN Reason: Labor Last Admin: 02/28/18 06:57 Dose: 125 mls/hr Lactated Ringer's (Lactated Ringers) 1,000 mls @ 999 mls/hr IV .Q1H1M PRN Last Admin: 02/28/18 06:53 Dose: 999 mls/hr Oxytocin (Pitocin Drip) 30 unit in 500 mls @ 2 mls/hr IV .Q24H PRN; Protocol PRN Reason: Induction/Augmentation Last Admin: 02/28/18 06:56 Dose: 2 mls/hr Lidocaine HCl (Xylocaine-Mpf 1% Vial) 0.2 mg ID O PRN PRN Reason: IV Start Methylergonovine Maleate (Methergine) 0.2 mg IM O PRN Misoprostol (Cytotec) 800 mcg GA ONCE PRN Allergies/Adverse Reactions: Allergies Allergy/AdvReac Type Severity Reaction Status Date / Time fluoxetine AdvReac Unknown Suicidal Verified 02/28/18 09:02 Ideations - Home Medications Home Medications: Home Medications Medication Instructions Recorded Confirmed Type Zyrtec (Cetirizine) 10 mg tablet 10 mg PO DAILY 01/22/18 01/22/18 History Buspirone 1 tab PO BID 02/11/18 02/11/18 History LIDOCAINE 2% JELLY 30ml 02/11/18 History Vitamins 1 tab PO DAILY 02/11/18 02/11/18 History Ranitidine 1 tab PO BID 02/11/18 02/11/18 History Vitamin E 02/11/18 History Zofran 1 tab PO Q8H 02/11/18 02/11/18 History - Medical History Respiratory: DENIES: Asthma, Bronchitis, Chronic Obstructive Pulmonary Disease (COPD), Dyspnea, Orthopnea, Pulmonary Embolism, Pneumonia, Upper Respiratory Infection, Pulmonary Edema, Sleep Apnea, Tuberculosis, Other Cardiovascular: DENIES: Abnormal EKG, Angina, Arrhythmia, Congestive Heart Failure, Coronary Artery Disease, Heart Murmur, Hypertension, Hypotension, High Cholesterol, Myocardial Infarction, Rheumatic Fever, Valvular Heart Disease, Other Gastrointestional: Reports: Gastroesophageal Reflux Disease (with ) Neuro/Musculoskeletal: Reports: Depression Renal/Endocrine: Reports: Other (partial nephrectomy for kidney CA) Other History: Reports: Now - Surgical History Surgery/Treatment: REPORT: Other (history of laproscopic renal cancer surgery ) Reproductive Surgery/Treatment: DENIES: Section Anesthesia Reactions: None Hx Family Anesthesia Reaction: No History of Motion Sickness: No - Social History Smoking Status: Never smoker - Pertinent Findings Lab Data: CBC and BMP 02/28/18 06:41 - Airway Assessment Mallampati Score: II TMD: 3 Fingerbreadths Neck Extension: good Overall Assessment: may be difficult intubation - ASA ASA Score: 2 - Discussion Discussion: Discussed risks/options/alternatives of anesthesia and questions answered. Patient consents. Nursing pain assessment noted. Anesthesia Discussion: spouse Attestation Statement: Prior to the delivery of any anesthetic medication, I examined the patient, developed the plan, obtained the patient's consent and discussed the risk and benefits of the procedure with the patient/guardian. - Additional Information Comments: pt desiring to deliver without block. CSE placed with SAB dosed for attempted version and epidural cath placed without incidence. Cath flushed with saline and not dosed at this time per pt request.
[2018-02-28] MEDS: CEFAZOLIN PREMIX (MC ONLY) 2 GM/50 ML BAG IV ONE ×2 (10:40→14:59)
[2018-02-28] MEDS: OXYTOCIN BOLUS BAG 30 UNIT/500 ML ML IV SCH ×2 (10:51→13:12)
[2018-02-28] MEDS ORDERED: KETAMINE 500 MG/10 ML INJECTION ONE (10:52)
[2018-02-28] MEDS ORDERED: MORPHINE SULFATE PF 5mg/10ml INJ (Duramorph) ONE (10:59)
[2018-02-28] MEDS ORDERED: FentaNYL 250 MCG/5 ML INJECTION ONE (11:17)
[2018-02-28] MEDS ORDERED: MIDAZOLAM 2mg/2ml INJECTION ONE (11:18)
[2018-02-28] MEDS ORDERED: SUCCINYLCHOLINE 20mg/mL 10mL INJECTION ONE (11:26)
[2018-02-28] MEDS ORDERED: PROPOFOL 20 ML ONE (11:26)
[2018-02-28] MEDS ORDERED: HYDROCORTISONE 2.5% CREAM 30gm RECTALLY PRN (11:43)
[2018-02-28] MEDS ORDERED: DiphenhydrAMINE 25 MG CAPSULE PO PRN (11:43)
[2018-02-28] MEDS ORDERED: SIMETHICONE 80 MG CHEWABLE TABLET PO PRN (11:43)
[2018-02-28] MEDS ORDERED: OXYTOCIN DRIP 30 UNIT/500 ML ML IV SCH (11:45)
[2018-02-28] MEDS ORDERED: LIDOCAINE 2%/EPI 1:200,000 20ml SDV PF ONE (11:45)
[2018-02-28] MEDS ORDERED: D5LR 1,000 ML IV SCH (11:45)
[2018-02-28] MEDS ORDERED: METOCLOPRAMIDE 10mg/2ml INJECTION IVP PRN (12:00)
[2018-02-28] MEDS ORDERED: NALBUPHINE 10 MG/ML INJECTION IVP PRN (12:00)
[2018-02-28] MEDS ORDERED: ONDANSETRON 4 MG/2 ML INJECTION IVP PRN (12:00)
[2018-02-28] MEDS ORDERED: HYDROMORPHONE 2 MG/ML INJECTION IVP PRN (12:09)
[2018-02-28] MEDS: IBUPROFEN 800 MG TABLET PO PRN ×2 (13:21→22:15)
[2018-02-28] MEDS: HYDROCODONE/APAP 5mg/325mg TABLET PO PRN ×3 (14:56→20:57)
[2018-02-28] MEDS: SIMETHICONE 80 MG CHEWABLE TABLET PO SCH ×3 (14:58→22:14)
--- NOTE | 2018-02-28 15:39 | OB/GYN Progress Note ---
OB-PP Progress Note - General Maternal Group B Strep: Negative - Subjective Date: 02/28/18 Lochia: Minimal Pain: controlled Voiding: zamudio still in place - Objective Vital Signs: Last Vital Signs Temp 97.9 F 02/28/18 12:24 Pulse 77 02/28/18 12:20 Resp 16 02/28/18 14:58 BP 143/60 H 02/28/18 12:20 Pulse Ox 99 02/28/18 12:20 Urine Output: good General: alert and oriented Incision: dressed Laboratory: Laboratory Results - last 24 hr 02/28/18 02/28/18 06:41 06:41 WBC 7.5 RBC 4.16 Hgb 11.7 L Hct 36.4 MCV 87.5 MCH 28.1 MCHC 32.1 RDW Std Deviation 45.7 Plt Count 144 MPV 11.5 Blood Type O Positive Antibody Screen Negative - Assessment Assessment: Primary C/S - Plan Plan: routine care Delivery reviewed with patient. Q&A.
[2018-03-01] MEDS: HYDROCODONE/APAP 5mg/325mg TABLET PO PRN ×3 (02:18→10:51)
[2018-03-01] MEDS: IBUPROFEN 800 MG TABLET PO PRN ×2 (06:42→15:33)
[2018-03-01] MEDS: DOCUSATE CALCIUM 240 MG CAPSULE PO SCH (10:50)
--- NOTE | 2018-03-01 10:51 | Progress Note ---
OB PP Progress Note Free Text - Date Date: 03/01/18 - Progress Note Progress Note: vss af doing well no c/o cont current care path q&a-krb
[2018-03-01] MEDS: SIMETHICONE 80 MG CHEWABLE TABLET PO SCH ×4 (10:54→22:18)
--- NOTE | 2018-03-01 11:33 | Operative Note ---
DATE OF SURGERY 02/28/2018 PREOPERATIVE DIAGNOSES 1. 32-year-old 5, para 2 at 38 weeks 4 days gestational age. 2. Severe polyhydramnios. 3. Unstable lie with umbilical cord presentation. POSTOPERATIVE DIAGNOSIS 1. 32-year-old 5, para 2 at 38 weeks 4 days gestational age. 2. Severe polyhydramnios. 3. Unstable lie poor umbilical cord presentation. PROCEDURE Primary low transverse section. SURGEON Dr. Roxie Wynn [employer] Hector Frank, certified surgical tech/first assistant. ANESTHESIA Combined spinal epidural by MALENA Valencia COMPLICATIONS None. EBL 1200 mL. FINDINGS Viable male infant, transverse presentation, abundant clear fluid. Apgars 1/9, weight 3894 g, name "Jose Francisco." Normal-appearing uterus, ovaries and right tube. Her left tube was surgically absent. INDICATIONS Shantelle was brought in this morning for a Pitocin induction due to severe polyhydramnios. She had two previous vaginal deliveries without epidurals and wanted to minimize the use of Pitocin and requested an early amniotomy. This was performed and clear fluid was returned. As the fluid was draining out I lost palpation of the head. It ascended in her pelvis. The bedside sono was brought into the room and the head was found to be in the right upper quadrant. We discussed at length doing a at this point versus a trial of external cephalic version. If we had distress or cord prolapse with the version, she understands it would be an emergency . Anesthesia came and placed her CSE first. When she was comfortable Dr. Reed helped me to rotate the baby counterclockwise so the head was down. On palpating vaginally the baby's head was still not well engaged in the pelvis but I did not feel an umbilical cord at that point. She was oswaldo every five minutes so we elected to just watch her at that point. An hour or so later the nurse checked her and reported that there was an umbilical cord going across the cervix. I ran down to Maternal/Child and confirmed that the baby was again no longer vertex and the cord was transverse across the cervix. I lifted parts up even though there was no compression on the cord at that point. She was consented for an emergency . She already had a Seo catheter in place. PROCEDURE The patient was brought back to the operating room. heart tones were found and initially were still in the 120s so we attempted to bring her epidural up to adequate surgical levels. However, heart tones dropped so my hand was replaced with one of the nurse's hand so I could go scrub. She was quickly prepped and draped in the normal sterile fashion. My welder assistant had not arrived yet so Dr. Richey initially first assisted me until the baby delivered. A Pfannenstiel skin incision was made and quickly carried down to the fascia. The fascia was incised in the midline and carried laterally with the Danielle scissors. The fascia was elevated and the rectus muscles were quickly dissected off. The peritoneum was entered bluntly and quickly extended superiorly and inferiorly with good visualization of the bladder. The bladder blade was inserted. The uterine incision was made above the bladder so a bladder flap was not created. The lower uterine segment was incised in a transverse fashion layer by layer with a scalpel and bluntly extended. We encountered placenta at this point. There was no presenting part in the pelvis. I was able to identify one leg and then the other leg anteriorly and to the maternal left. These were both delivered. Baby was rotated to be back up and delivered to the level of the scapula. His arms were swept down and out. Dr. Richey held the baby's body while I delivered the head. The cord was clamped and cut and she took the baby to the warmer for resuscitation. Hector Frank stepped in at this point. The placenta delivered spontaneously. The uterus was exteriorized and cleared of all clots and debris. The uterine incision was closed with running, locked 0 -Monocryl. A second layer was placed to imbricate the incision. A figure-of- eight of chromic was used for hemostasis on the left edge of the incision. The uterus was returned to the abdomen. The gutters were cleared of all clots and debris. The uterine incision was inspected one final time and still noted to be hemostatic. We found a spot of bleeding on the right rectus muscle. This was grasped with a right angle and 2-0 chromic was used in a [id number] to ligate the bleeding. The peritoneum was closed with 2-0 Vicryl. Upon further inspection of the rectus muscles below the incision, there was another bleeding area and a [id number] of 2-0 chromic was placed around this as well. The fascia was closed with running 0-Vicryl. Hemostasis was obtained in the subcutaneous tissue with cautery. The skin was closed with 4-0 Vicryl in a subcuticular manner. Steri-Strips were placed. Sponge, sharp and instrument counts were correct. The patient tolerated the procedure well and was taken to the recovery room in good condition. AARON
--- NOTE | 2018-03-01 13:06 | Anesthesia Postoperative Note ---
- Date and Time Date: 03/01/18 Time: 13:04 - Status Patient Participated in Evaluation: Patient Participated in Person Vital Signs: Temperature 97.9 F 03/01/18 06:46 Pulse Rate 83 03/01/18 06:46 Respiratory Rate 18 03/01/18 06:46 Blood Pressure 114/71 03/01/18 06:46 Pulse Oximetry 97 03/01/18 06:46 Respiratory Function: Airway Patent Cardiovascular Function: Regular Pulse EKG: Sinus Rhythm Mental Status: Alert and Oriented Pain Intensity: 6 Hydration: Taking PO Fluids Complications During Recover: None Apparent Post Anesthesia Care Notes: pt with increased back pain and incisional pain. questionable efficacy of epidural. Post epidural action and possible pain discussed. pt verbalized understanding. - Follow-Up Instructions Instructions: Per Surgeon
[2018-03-01] MEDS ORDERED: Oxycodone *IR* 5 MG TABLET PO ONE (13:10)
[2018-03-01] MEDS: Oxycodone/Acetaminophen 5/325 1 TAB PO PRN ×2 (17:21→21:59)
[2018-03-02] MEDS: IBUPROFEN 800 MG TABLET PO PRN ×2 (01:45→11:32)
[2018-03-02 02:44] VITALS: O2SAT 97
[2018-03-02] MEDS: Oxycodone/Acetaminophen 5/325 1 TAB PO PRN ×2 (06:05→11:31)
[2018-03-02 09:43] VITALS: BP 116/77; PULSE 98; RESP 20; TEMP 97.8
[2018-03-02] MEDS: DOCUSATE CALCIUM 240 MG CAPSULE PO SCH (11:32)
[2018-03-02] MEDS: SIMETHICONE 80 MG CHEWABLE TABLET PO SCH (12:27)
--- NOTE | 2018-03-02 12:42 | Progress Note ---
OB PP Progress Note Free Text - Date Date: 03/02/18 - Progress Note Progress Note: doing well vss af desires dc today instructions reviewed f/u 1 wk q&a
== END 2018-03-02 14:10 | disposition home or self-care (01) | DRG 765 ==
LOC: MC 06:00
PROVIDERS: ADMIT Obstetrics & Gynecology; ATTEND Obstetrics & Gynecology